=== PATIENT | female | born 1945 | race Caucasian/White ===

== ENCOUNTER 2016-09-18 01:10 | Inpatient (IN) | payer MEDICARE, BC ==
[2016-09-18] MEDS ORDERED: NORMAL SALINE 1000 ML 500 ML IV ONE (03:24)
[2016-09-18] MEDS ORDERED: INSULIN REG, HUMAN 100 UNIT/ML 3 ML VIAL (PYX) SUBCUT ONE ×2 (03:35→05:52)
--- NOTE | 2016-09-18 03:39 | ER Document Report ---
[id number] 30 DAYS: No <ELI WONG - Last Filed: 09/18/16 23:54> - General Chief Complaint: High Blood Sugar Stated Complaint: NON COMPLIAN WITH MEDS Notes: Patient is 70-year-old female presents with complaint of high blood sugars. She says she sometimes gets to take her insulin. She is because at her blood sugars have gone up. She also has chronic diarrhea which has been ongoing for several months. She said this is unchanged. No blood in her stool. No abdominal pain. No fevers. Some nausea but no vomiting. No other complaints at this time. (ELI WONG) - Related Data Allergies/Adverse Reactions: Sulfa (Sulfonamide Antibiotics) Allergy (Severe, Verified 12/03/15 14:47) Home Medications: Current Home Medications Aspirin [Ecotrin 81 mg EC Tablet] 81 mg PO DAILY 09/18/16 [History] Atorvastatin Calcium [Lipitor 40 mg Tablet] 40 mg PO QHS 09/18/16 [History] Bupropion HCl [Wellbutrin Xl 300mg 24hr Tablet] 300 mg PO QAM 09/18/16 [History] Clopidogrel Bisulfate [Plavix 75 mg Tablet] 75 mg PO DAILY 09/18/16 [History] Hydrochlorothiazide [Hydrodiuril 12.5 mg Capsule] 12.5 mg PO DAILY 09/18/16 [ History] Insulin NPH Human Isophane [Humulin N] 90 units SQ Q12 09/18/16 [History] Insulin Regular, Human [Humulin R (Reg) Insulin 100 unit/mL] 0 units SQ .PERSLIDINGSCALE 09/18/16 [History] Insulin Regular, Human [Humulin R (Reg) Insulin 100 unit/mL] 20 units SQ TID [History] Isosorbide Mononitrate [Imdur 30 mg Tablet.er] 30 mg PO Q12 09/18/16 [History] Levothyroxine Sodium [Synthroid] 200 mcg PO DAILY 09/18/16 [History] Lipase/Protease/Amylase [Zenpep Dr 3,000 Units Capsule] 1 each PO TID 09/18/16 [ History] Metoprolol Tartrate [Lopressor 50 mg Tablet] 50 mg PO DAILY 09/18/16 [History] Nitroglycerin [Nitrostat 0.4 mg (1/150 Gr) Tabs 25/Bottle] 0.4 mg SL Q5MP PRN [History] Ranitidine HCl [Zantac] 300 mg PO QHS 09/18/16 [History] Ranolazine [Ranexa 500 mg Tab.sr] 500 mg PO Q12 09/18/16 [History] Valsartan [Diovan 160 mg Tablet] 160 mg PO DAILY 09/18/16 [History] Past Medical History - Social History Smoking Status: Never Smoker Chew tobacco use (# tins/day): No Frequency of alcohol use: None Drug Abuse: None Family History: None Patient has suicidal ideation: No Patient has homicidal ideation: No - Past Medical History Cardiac Medical History: Reports: Hx Congestive Heart Failure, Hx Heart Attack, Hx Hypercholesterolemia, Hx Hypertension Pulmonary Medical History: Denies: Hx Tuberculosis Endocrine Medical History: Reports: Hx Diabetes Mellitus Type 2 Renal/ Medical History: Denies: Hx Peritoneal Dialysis Psychiatric Medical History: Reports: Hx Depression Past Surgical History: Reports: Hx Abdominal Surgery - fistula in abdomen, Hx Appendectomy, Hx Cardiac Catheterization, Hx Cardiac Surgery - triple bypass, stent, Hx Cholecystectomy, Hx Hysterectomy, Hx Tonsillectomy - Immunizations Immunizations up to date: Yes Hx Diphtheria, Pertussis, Tetanus Vaccination: Yes Hx Pneumococcal Vaccination: 06/11/15 <ELI WONG - Last Filed: 09/18/16 23:54> Review of Systems <ROSA HERRING - Last Filed: 09/18/16 07:42> <ELI WONG - Last Filed: 09/18/16 23:54> - Review of Systems Notes: My Normal Review Basic REVIEW OF SYSTEMS: CONSTITUTIONAL : Denies fever, chills, or sweats. Denies recent illness. EENT: Denies eye, ear, throat, or mouth pain or symptoms. Denies nasal or sinus congestion. RESPIRATORY: Denies cough, cold, or chest congestion. Denies shortness of breath, difficulty breathing, or wheezing. GASTROINTESTINAL: Denies abdominal pain. Some diarrhea. Denies constipation. Last BM: MUSCULOSKELETAL: Denies neck or back pain or joint pain or swelling. SKIN: Denies rash or skin lesions. NEUROLOGICAL: Denies altered mental status or loss of consciousness. Denies headache. Denies weakness or paralysis or loss of use of either side. Denies problems with gait or speech. Denies sensory or motor loss.nxiety or stress or depression. ALL OTHER SYSTEMS REVIEWED AND NEGATIVE. (ELI WONG) Physical Exam <ROSA HERRING - Last Filed: 09/18/16 07:42> <ELI WONG - Last Filed: 09/18/16 23:54> - Vital signs Vitals: Temp Pulse Resp BP Pulse Ox 98.7 F 120 H 16 171/87 H 97 09/18/16 01:20 09/18/16 01:20 09/18/16 01:20 09/18/16 01:20 09/18/16 01:20 (ROSA HERRING) (ELI WONG) - Notes Notes: General Appearance: Well nourished, alert, cooperative, no acute distress, no obvious discomfort. Well-appearing. Vitals: reviewed, See vital signs table. Head: no swelling or tenderness to the head Eyes: PERRL, EOMI, Conjuctiva clear Mouth: No decreasd moisture Neck: Supple, no neck tenderness, No thyromegaly Lungs: No wheezing, No rales, No rhonci, No accessory muscle use, good air exchange bilaterally. Heart: Normal rate, Regular rythm, No murmur, no rub Abdomen: Normal BS, soft, No rigidity, No abdominal tenderness, No guarding, no rebound, no abdominal masses, no organomegaly Extremities: strength 5/5 in all extremities, good pulses in all extremities, no swelling or tenderness in the extremities, no edema. Skin: warm, dry, appropriate color, no rash Neuro: speech clear, oriented x 3, normal affect, responds appropriately to questions. (ELI WONG) Course - Laboratory Result Diagrams: 09/18/16 03:34 09/18/16 03:34 <RSOA HERRING - Last Filed: 09/18/16 07:42> - Laboratory Result Diagrams: 09/18/16 03:34 09/18/16 03:34 <ELI WONG - Last Filed: 09/18/16 23:54> - Vital Signs Vital signs: Temp Pulse Resp BP Pulse Ox 97.5 F 83 18 155/93 H 98 09/18/16 18:00 09/18/16 19:00 09/18/16 18:00 09/18/16 18:00 09/18/16 18:00 (ROSA HERRING) (ELI WONG) - Laboratory Laboratory results interpreted by me: 09/18/16 09/18/16 09/18/16 02:05 03:34 03:34 WBC 22.2 H RDW 14.2 H Seg Neuts % (Manual) 81 H Lymphocytes % (Manual) 9 L Abs Neuts (Manual) 18.6 H Abs Monocytes (Manual) 1.6 H Sodium 133.7 L Glucose 347 H POC Glucose 366 H Hemoglobin A1c % Urine Glucose (UA) Urine Blood Urine Nitrite Ur Leukocyte Esterase 09/18/16 09/18/16 09/18/16 03:34 05:22 06:22 WBC RDW Seg Neuts % (Manual) Lymphocytes % (Manual) Abs Neuts (Manual) Abs Monocytes (Manual) Sodium Glucose POC Glucose 286 H Hemoglobin A1c % 10.6 H Urine Glucose (UA) >=500 H Urine Blood MODERATE H Urine Nitrite POSITIVE H Ur Leukocyte Esterase SMALL H (ROSA HERRING) (LEI WONG) - Transfer of Care Notes: 09/18/16 07:03 Patient is a leukocytosis 20,000. She has diarrhea but this is chronic for her. She has been having abnormal blood sugars. She initially thought this may be related to possibly missing insulin injection. I think could be related to infection. She does have positive nitrites and urine suggesting UTI. Clinically she looks okay. Due to her age and high leukocytosis think it is appropriate to admit her for observation. We will speak with her primary care doctor to see if this is appropriate. Dictation of this chart was performed using voice recognition software; therefore, there may be some unintended grammatical errors. (ELI WONG) Discharge - Discharge Admitting Provider: Hospitalist Unit Admitted: Telemetry <ROSA HERRING - Last Filed: 09/18/16 07:42> <ELI WONG - Last Filed: 09/18/16 23:54> - Discharge Clinical Impression: Diabetes mellitus type 2 in obese UTI (urinary tract infection) Qualifiers: Urinary tract infection type: acute cystitis Hematuria presence: with hematuria Qualified Code(s): N30.01 - Acute cystitis with hematuria Condition: Stable Disposition: ADMITTED INPATIENT
[2016-09-18 04:11] LABS: ANION GAP 10 (5-19); BLOOD UREA NITROGEN 11 mg/dL (7-20); CALCIUM 9.8 mg/dL (8.4-10.2); CARBON DIOXIDE 26 mmol/L (22-30); CHLORIDE 98 mmol/L (98-107); CREATININE RESULT 0.86 mg/dL (0.52-1.25); GLUCOSE 347 mg/dL (75-110); MAGNESIUM 1.6 mg/dL (1.6-2.3); POTASSIUM 3.9 mmol/L (3.6-5.0); SODIUM 133.7 mmol/L (137-145)
[2016-09-18 04:19] LABS: HEMATOCRIT 40.2 % (36.0-47.0); HEMOGLOBIN 13.4 g/dL (12.0-15.5); MEAN CORPUSCULAR HEMOGLOBIN 29.7 pg (27.0-33.4); MEAN CORPUSCULAR HGB CONC 33.3 g/dL (32.0-36.0); MEAN CORPUSCULAR VOLUME 89 fl (80-97); RED CELL DISTRIBUTION WIDTH 14.2 % (11.5-14.0); WHITE BLOOD COUNT 22.2 10^3/uL (4.0-10.5)
[2016-09-18 04:34] LABS: BAND NEUTROPHILS % (MANUAL) 3 % (3-5); BASOPHILS % (MANUAL) 0 % (0-2); EOSINOPHILS % (MANUAL) 0 % (0-6); LYMPHOCYTES % (MANUAL) 9 % (13-45); TOTAL CELLS COUNTED 100
[2016-09-18 04:36] LABS: ANISOCYTOSIS SLIGHT; TOXIC GRANULATION SLIGHT; TOXIC VACUOLATION PRESENT
[2016-09-18 06:38] LABS: APPEARANCE,URINE SLIGHTLY-CLOUDY; BILIRUBIN,URINE NEGATIVE (NEGATIVE); GLUCOSE, URINE >=500 mg/dL (NEGATIVE); KETONES,URINE NEGATIVE (NEGATIVE); LEUKOCYTE ESTERASE,URINE SMALL (NEGATIVE); NITRITE,URINE POSITIVE (NEGATIVE); PROTEIN,URINE NEGATIVE (NEGATIVE); URINE SPECIFIC GRAVITY 1.016; UROBILINOGEN,URINE NEGATIVE mg/dL (<2.0)
[2016-09-18] MEDS ORDERED: CEFTRIAXONE INJ 1000 MG VIAL IV ONE (06:53)
[2016-09-18] MEDS ORDERED: NORMAL SALINE 1000 ML 1,000 ML IV PRN (07:44)
[2016-09-18] MEDS ORDERED: DEXTROSE 40% GEL 15 GM TUBE PO PRN ×2 (07:47)
[2016-09-18] MEDS ORDERED: DEXTROSE 50%-WATER 25 GM/50 ML DISP.SYRIN IV PRN ×2 (07:47)
[2016-09-18] MEDS ORDERED: GLUCAGON,HUMAN RECOMB 1 MG INJ IM PRN (07:47)
[2016-09-18] MEDS ORDERED: LACTOBACILLUS ACIDOPHILUS 250 MG TAB PO ONE (10:30)
[2016-09-18] MEDS ORDERED: NITROGLYCERIN 0.4 MG/TAB 25 TAB/BOTTLE SL PRN (14:15)
--- NOTE | 2016-09-18 14:56 | PDOC H&P ---
History of Present Illness Admission Date/PCP: 09/18/16 07:45 Formerly: LENA MORENO, Patient complains of: High Blood Sugar History of Present Illness: KEVIN INFANTE is a 70 year old female with a past medical history of recurrent urinary tract infections and poorly controlled diabetes mellitus type 2 that presented to the emergency department with complaint of high blood sugars. The patient stated she sometimes gets to take her insulin and is here because at her blood sugars have gone up. The patient also has chronic diarrhea which has been ongoing for several months that has been worked up on an outpatient basis but apparently has not seen GI. No blood in her stool. No abdominal pain. No fevers. Some nausea but no vomiting. The patient had urinalysis findings are consistent with urinary tract infection. Patient was given a dose of ceftriaxone while in the emergency department as well as IV insulin was referred to the hospitalist for admission and management. Upon assessment the patient she was lying on stretcher watching television. The patient was excited about breakfast admitted to an appetite. The patient stated that she did not want cereal. The patient engage the junior underwriter without issue. I introduced myself and my role and the patient had no questions with this. The patient was then seen by the patient navigator and the patient did not have any concerns. However later once the patient was admitted to the telemetry floor, the patient's daughter adamantly refused my services. 09/18/16 09/18/16 03:34 06:22 WBC 22.2 H Ur Leukocyte Esterase SMALL H Urine WBC (Auto) 19 09/18/16 06:22 Urine Culture - Pending Clean Catch Midstream 09/18/16 02:05 POC Glucose 366 H MEDICATIONS: The medications listed in this document may have been auto- populated from previous contact and may not been verified or reconciled. This may not be an accurate reflection of the patient's home medication(s); however, authors are unable to edit or delete the medications listed in this document as "home medications". Past Medical History Cardiac Medical History: Reports: Atrial Fibrillation, Congestive Heart Failure , Coronary Artery Disease, Myocardial Infarction, Hyperlipidema, Hypertension Pulmonary Medical History: Reports: Sleep Apnea Endocrine Medical History: Reports: Diabetes Mellitus Type 2, Obesity - Morbid obesity Psychiatric Medical History: Reports: Depression Past Surgical History Past Surgical History: Bilateral cataract surgery Past Surgical History: Reports: Appendectomy, Cardiac Catheterization - Status post stenting, Cholecystectomy, Coronary Artery Bypass Graft - Triple-vessel, Hysterectomy, Tonsillectomy, Other - Abdominal wall vesicular fistula repair Social History Information Source: Patient Occupation: Retired. Lives alone. . Has children. Lives with: Alone Smoking Status: Never Smoker Frequency of Alcohol Use: None Hx Recreational Drug Use: No Drugs: None Hx Prescription Drug Abuse: No - Advance Directive Resuscitation Status: Full Code Surrogate healthcare decision maker:: Her daughters Family History Family History: None, DM, Hypertension, Malignancy - Mother of leukemia with diabetes and hypertension., Other - Father from Parkinson 's disease with hypertension and depression Parental Family History Reviewed: Yes Children Family History Reviewed: Yes Sibling(s) Family History Reviewed.: Yes - Sister with breast cancer Medication/Allergy Home Medications: Aspirin [Ecotrin 81 mg EC Tablet] 81 mg PO DAILY 09/18/16 Atorvastatin Calcium [Lipitor 40 mg Tablet] 40 mg PO QHS 09/18/16 Bupropion HCl [Wellbutrin Xl 300mg 24hr Tablet] 300 mg PO QAM 09/18/16 Clopidogrel Bisulfate [Plavix 75 mg Tablet] 75 mg PO DAILY 09/18/16 Hydrochlorothiazide [Hydrodiuril 12.5 mg Capsule] 12.5 mg PO DAILY 09/18/16 Insulin NPH Human Isophane [Humulin N] 90 units SQ Q12 09/18/16 Insulin Regular, Human [Humulin R (Reg) Insulin 100 unit/mL] 0 units SQ .PERSLIDINGSCALE 09/18/16 Insulin Regular, Human [Humulin R (Reg) Insulin 100 unit/mL] 20 units SQ TID Isosorbide Mononitrate [Imdur 30 mg Tablet.er] 30 mg PO Q12 09/18/16 Levothyroxine Sodium [Synthroid] 200 mcg PO DAILY 09/18/16 Lipase/Protease/Amylase [Zenpep Dr 3,000 Units Capsule] 1 each PO TID 09/18/16 Metoprolol Tartrate [Lopressor 50 mg Tablet] 50 mg PO DAILY 09/18/16 Nitroglycerin [Nitrostat 0.4 mg (1/150 Gr) Tabs 25/Bottle] 0.4 mg SL Q5MP PRN Ranitidine HCl [Zantac] 300 mg PO QHS 09/18/16 Ranolazine [Ranexa 500 mg Tab.sr] 500 mg PO Q12 09/18/16 Valsartan [Diovan 160 mg Tablet] 160 mg PO DAILY 09/18/16 Allergies/Adverse Reactions: Sulfa (Sulfonamide Antibiotics) Allergy (Severe, Verified 12/03/15 14:47) Review of Systems Constitutional: PRESENT: chills, fatigue, weakness. ABSENT: fever(s), headache( s), weight gain, weight loss Eyes: ABSENT: visual disturbances Ears: ABSENT: hearing changes Cardiovascular: PRESENT: chest pain, dyspnea on exertion. ABSENT: edema, orthropnea, palpitations Respiratory: ABSENT: cough, hemoptysis Gastrointestinal: PRESENT: diarrhea - 1 year, nausea. ABSENT: abdominal pain, constipation, hematemesis, hematochezia, vomiting Genitourinary: ABSENT: dysuria, hematuria, nocturia Musculoskeletal: ABSENT: joint swelling Integumentary: ABSENT: rash, wounds Neurological: ABSENT: abnormal gait, abnormal speech, confusion, dizziness, focal weakness, syncope Psychiatric: ABSENT: anxiety, depression, homidical ideation, suicidal ideation Endocrine: ABSENT: cold intolerance, heat intolerance, polydipsia, polyuria Hematologic/Lymphatic: PRESENT: easy bleeding, easy bruising Physical Exam Vital Signs: Temp Pulse Resp BP Pulse Ox 97.6 F 78 20 158/78 H 98 09/18/16 10:48 09/18/16 10:48 09/18/16 10:48 09/18/16 10:48 09/18/16 10:48 Intake & Output 09/16/16 09/17/16 09/18/16 23:59 23:59 23:59 Weight 101.2 kg General appearance: PRESENT: no acute distress, cooperative, well-developed, well-nourished Head exam: PRESENT: atraumatic, normocephalic Eye exam: PRESENT: conjunctiva pink, EOMI, PERRLA. ABSENT: scleral icterus Ear exam: PRESENT: normal external ear exam Mouth exam: PRESENT: moist, tongue midline Neck exam: ABSENT: carotid bruit, JVD, lymphadenopathy, thyromegaly Respiratory exam: PRESENT: clear to auscultation chadd, symmetrical, unlabored. ABSENT: rales, rhonchi, tachypnea, wheezes Cardiovascular exam: PRESENT: RRR. ABSENT: diastolic murmur, rubs, systolic murmur Pulses: PRESENT: normal dorsalis pedis pul Vascular exam: PRESENT: normal capillary refill GI/Abdominal exam: PRESENT: normal bowel sounds, soft. ABSENT: distended, guarding, mass, organolmegaly, rebound, tenderness Rectal exam: PRESENT: deferred Extremities exam: PRESENT: full ROM. ABSENT: calf tenderness, clubbing, pedal edema Neurological exam: PRESENT: alert, awake, oriented to person, oriented to place , oriented to time, oriented to situation, CN II-XII grossly intact. ABSENT: motor sensory deficit Psychiatric exam: PRESENT: appropriate affect, normal mood. ABSENT: homicidal ideation, suicidal ideation Skin exam: PRESENT: dry, intact, warm. ABSENT: cyanosis, rash Results Laboratory Results: Labs- Last Values WBC 22.2 10^3/uL (4.0-10.5) H 09/18/16 03:34 RBC 4.50 10^6/uL (3.72-5.28) 09/18/16 03:34 Hgb 13.4 g/dL (12.0-15.5) 09/18/16 03:34 Hct 40.2 % (36.0-47.0) 09/18/16 03:34 MCV 89 fl (80-97) 09/18/16 03:34 MCH 29.7 pg (27.0-33.4) 09/18/16 03:34 MCHC 33.3 g/dL (32.0-36.0) 09/18/16 03:34 RDW 14.2 % (11.5-14.0) H 09/18/16 03:34 Plt Count 375 10^3/uL (150-450) 09/18/16 03:34 Total Counted 100 09/18/16 03:34 Seg Neutrophils % Not Reportable 09/18/16 03:34 Seg Neuts % (Manual) 81 % (42-78) H 09/18/16 03:34 Band Neutrophils % 3 % (3-5) 09/18/16 03:34 Lymphocytes % Not Reportable 09/18/16 03:34 Lymphocytes % (Manual) 9 % (13-45) L 09/18/16 03:34 Monocytes % Not Reportable 09/18/16 03:34 Monocytes % (Manual) 7 % (3-13) 09/18/16 03:34 Eosinophils % Not Reportable 09/18/16 03:34 Eosinophils % (Manual) 0 % (0-6) 09/18/16 03:34 Basophils % Not Reportable 09/18/16 03:34 Basophils % (Manual) 0 % (0-2) 09/18/16 03:34 Absolute Neutrophils Not Reportable 09/18/16 03:34 Abs Neuts (Manual) 18.6 10^3/uL (1.7-8.2) H 09/18/16 03:34 Absolute Lymphocytes Not Reportable 09/18/16 03:34 Abs Lymphs (Manual) 2.0 10^3/uL (0.5-4.7) 09/18/16 03:34 Absolute Monocytes Not Reportable 09/18/16 03:34 Abs Monocytes (Manual) 1.6 10^3/uL (0.1-1.4) H 09/18/16 03:34 Absolute Eosinophils Not Reportable 09/18/16 03:34 Absolute Eos (Manual) 0.0 10^3/uL (0.0-0.6) 09/18/16 03:34 Absolute Basophils Not Reportable 09/18/16 03:34 Abs Basophils (Manual) 0.0 10^3/uL (0.0-0.2) 09/18/16 03:34 Toxic Granulation SLIGHT 09/18/16 03:34 Toxic Vacuolation PRESENT 09/18/16 03:34 Platelet Comment ADEQUATE 09/18/16 03:34 Anisocytosis SLIGHT 09/18/16 03:34 Sodium 133.7 mmol/L (137-145) L 09/18/16 03:34 Potassium 3.9 mmol/L (3.6-5.0) 09/18/16 03:34 Chloride 98 mmol/L (98-107) 09/18/16 03:34 Carbon Dioxide 26 mmol/L (22-30) 09/18/16 03:34 Anion Gap 10 (5-19) 09/18/16 03:34 BUN 11 mg/dL (7-20) 09/18/16 03:34 Creatinine 0.86 mg/dL (0.52-1.25) 09/18/16 03:34 Est GFR ( Amer) > 60 (>60) 09/18/16 03:34 Est GFR (Non-Af Amer) > 60 (>60) 09/18/16 03:34 Glucose 347 mg/dL (75-110) H 09/18/16 03:34 POC Glucose 148 mg/dL (70-110) H 09/18/16 11:49 Calcium 9.8 mg/dL (8.4-10.2) 09/18/16 03:34 Magnesium 1.6 mg/dL (1.6-2.3) 09/18/16 03:34 Troponin I 0.023 ng/mL 09/18/16 08:37 Urine Color YELLOW 09/18/16 06:22 Urine Appearance SLIGHTLY-CLOUDY 09/18/16 06:22 Urine pH 6.0 (5.0-9.0) 09/18/16 06:22 Ur Specific [place] 1.016 09/18/16 06:22 Urine Protein NEGATIVE mg/dL (NEGATIVE) 09/18/16 06:22 Urine Glucose (UA) >=500 mg/dL (NEGATIVE) H 09/18/16 06:22 Urine Ketones NEGATIVE mg/dL (NEGATIVE) 09/18/16 06:22 Urine Blood MODERATE (NEGATIVE) H 09/18/16 06:22 Urine Nitrite POSITIVE (NEGATIVE) H 09/18/16 06:22 Urine Bilirubin NEGATIVE (NEGATIVE) 09/18/16 06:22 Urine Urobilinogen NEGATIVE mg/dL (<2.0) 09/18/16 06:22 Ur Leukocyte Esterase SMALL (NEGATIVE) H 09/18/16 06:22 Urine WBC (Auto) 19 /HPF 09/18/16 06:22 Urine RBC (Auto) 14 /HPF 09/18/16 06:22 Urine Bacteria (Auto) 3+ /HPF 09/18/16 06:22 Squamous Epi Cells Auto 7 /HPF 09/18/16 06:22 Urine Mucus (Auto) RARE /LPF 09/18/16 06:22 Urine Ascorbic Acid NEGATIVE (NEGATIVE) 09/18/16 06:22 Impressions: Chest X-Ray 09/18/16 05:06 IMPRESSION: HEART ENLARGED WITHOUT FAILURE. NO OTHER SIGNIFICANT RADIOGRAPHIC FINDING IN THE CHEST. Assessment & Plan - Diagnosis (1) UTI (urinary tract infection) Qualifiers: Urinary tract infection type: acute cystitis Hematuria presence: with hematuria Qualified Code(s): N30.01 - Acute cystitis with hematuria Is this a current diagnosis for this admission?: YesPlan: Will send urine for culture. Appears that the patient's past UTIs have consistent Klebsiella as well as Escherichia coli both of which were sensitive to ceftriaxone. Will continue ceftriaxone and follow. (2) SIRS (systemic inflammatory response syndrome) Is this a current diagnosis for this admission?: YesPlan: Secondary to #1. Selected Entries 09/18/16 01:20 Pulse Rate [ 120 H Right Finger] 09/18/16 03:34 WBC 22.2 H (3) Coronary artery disease Qualifiers: Coronary Disease-Associated Artery/Lesion type: [place] artery [place] vs. transplanted heart: [place] heart Associated angina: without angina Qualified Code(s): I25.10 - Atherosclerotic heart disease of [place] coronary artery without angina pectoris Is this a current diagnosis for this admission?: YesPlan: The patient admits to ever increasing dyspnea although she is not dyspneic at rest. The patient has no echo on record therefore will obtain echocardiogram. Will continue the patient's home medications the patient denies any chest pain at this time. (4) Obstructive sleep apnea Is this a current diagnosis for this admission?: YesPlan: Continue C Pap at night at home settings. (5) Diabetes mellitus type 2 in obese Is this a current diagnosis for this admission?: YesPlan: The patient's blood sugars appear to be under poor control. In review of the patient's previous admissions this is been a consistent trend. A1c's are consistently over 10. Resume the patient's home basal doses as well as her home sliding scale coverage and monitor how the patient's blood sugars do in this environment versus her home environment on this treatment regimen. Will add additional sliding-scale NovoLog before meals and at bedtime. (6) Chronic diarrhea Is this a current diagnosis for this admission?: YesPlan: Will add probiotic. Will send stool for culture. It appears the patient has had this ongoing for about a year. (7) Hypothyroidism Qualifiers: Hypothyroidism type: unspecified Qualified Code(s): E03.9 - Hypothyroidism, unspecified Is this a current diagnosis for this admission?: YesPlan: Will continue levothyroxine obtain TSH given the patient's diarrhea. (8) DVT prophylaxis Is this a current diagnosis for this admission?: YesPlan: *Subcutaneous heparin. - Time Time Spent: 50 to 70 Minutes Medications reviewed and adjusted accordingly: Yes Anticipated discharge: Home Within: within 24 hours Disposition: The patient is a full code. Pending patient's symptomatology and diagnostic findings will reevaluate in the a.m. - Inpatient Certification Based on my medical assessment, after consideration of the patient's comorbidities, presenting symptoms, or acuity I expect that the services needed warrant INPATIENT care.: Yes I certify that my determination is in accordance with my understanding of Medicare's requirements for reasonable and necessary INPATIENT services [42 CFR 412.3e].: Yes Medical Necessity: Need For IV Fluids, Need For Continuous Telemetry Monitoring , Need for IV Antibiotics Post Hospital Care: D/C or Transfer Summary
[2016-09-18] MEDS ORDERED: METOPROLOL SUCCINATE 50 MG TAB.SR.24H PO ONE (15:30)
[2016-09-18] MEDS ORDERED: CLOPIDOGREL BISULFATE 75 MG TABLET PO ONE (16:00)
[2016-09-18] MEDS ORDERED: ASPIRIN 81 MG TABLET, ENT COATED PO ONE (16:00)
[2016-09-18] MEDS: INSULIN REG, HUMAN 100 UNIT/ML 3 ML VIAL (PYX) SUBCUT SCH (16:25)
--- NOTE | 2016-09-18 16:55 | EKG REPORT ---
SEVERITY:- ABNORMAL ECG - SINUS RHYTHM LEFT VENTRICULAR HYPERTROPHY : Confirmed by: Kayli Swann MD 18-Sep-2016 16:54:09
[2016-09-18] MEDS: INSULIN REG, HUMAN 100 UNIT/ML 3 ML VIAL (PYX) SUBCUT PRN (17:01)
[2016-09-18] MEDS: LACTOBACILLUS ACIDOPHILUS 250 MG TAB PO SCH (17:01)
[2016-09-18] MEDS ORDERED: AMYLASE PO SCH (18:00)
[2016-09-18] MEDS ORDERED: PROTEASE PO SCH (18:00)
[2016-09-18] MEDS ORDERED: LIPASE PO SCH (18:00)
[2016-09-18] MEDS ORDERED: (PENDING PHARMACY ID) (Ranitidine Hcl [Zantac] 300 MG) PO SCH (22:00)
[2016-09-18] MEDS: RANOLAZINE 500 MG TAB.SR.12H PO SCH (23:01)
[2016-09-18] MEDS: ISOSORBIDE MONONITRATE 30 MG TAB.ER.24H PO SCH (23:01)
[2016-09-18] MEDS: FAMOTIDINE 20 MG TABLET PO SCH (23:02)
[2016-09-18] MEDS: ATORVASTATIN CALCIUM 40 MG TABLET PO SCH (23:02)
[2016-09-18] MEDS: INSULIN NPH (ISOPHANE), HUMAN 100 UNIT/ML 3 ML SUBCUT SCH (23:11)
[2016-09-18] MEDS: HEPARIN SOD (PORCINE) 5,000 UNIT/ML 1 ML SYRINGE SUBCUT SCH (23:12)
[2016-09-19 05:13] LABS: HEMATOCRIT 33.7 % (36.0-47.0); HEMOGLOBIN 11.7 g/dL (12.0-15.5); HGB HCT DIFFERENCE 1.4; MEAN CORPUSCULAR HEMOGLOBIN 30.9 pg (27.0-33.4); MEAN CORPUSCULAR HGB CONC 34.8 g/dL (32.0-36.0); MEAN CORPUSCULAR VOLUME 89 fl (80-97); RED BLOOD COUNT 3.79 10^6/uL (3.72-5.28); WHITE BLOOD COUNT 10.3 10^3/uL (4.0-10.5)
[2016-09-19] MEDS: NORMAL SALINE 1000 ML 1,000 ML IV PRN (05:15)
[2016-09-19] MEDS: CEFTRIAXONE 1 GM/D5W RTU 1 GM/50 ML RTUPB IV SCH (05:15)
[2016-09-19] MEDS: HEPARIN SOD (PORCINE) 5,000 UNIT/ML 1 ML SYRINGE SUBCUT SCH ×3 (05:15→23:39)
[2016-09-19 05:30] LABS: ANION GAP 8 (5-19); BLOOD UREA NITROGEN 13 mg/dL (7-20); CALCIUM 9.7 mg/dL (8.4-10.2); CARBON DIOXIDE 26 mmol/L (22-30); CHLORIDE 103 mmol/L (98-107); GLUCOSE 247 mg/dL (75-110); MAGNESIUM 1.7 mg/dL (1.6-2.3); POTASSIUM 3.8 mmol/L (3.6-5.0); SODIUM 136.5 mmol/L (137-145)
[2016-09-19] MEDS: INSULIN REG, HUMAN 100 UNIT/ML 3 ML VIAL (PYX) SUBCUT SCH ×3 (08:20→18:41)
[2016-09-19] MEDS: INSULIN REG, HUMAN 100 UNIT/ML 3 ML VIAL (PYX) SUBCUT PRN ×3 (08:21→18:41)
[2016-09-19] MEDS: CLOPIDOGREL BISULFATE 75 MG TABLET PO SCH (11:18)
[2016-09-19] MEDS: FAMOTIDINE 20 MG TABLET PO SCH ×2 (11:19→23:38)
[2016-09-19] MEDS: INSULIN NPH (ISOPHANE), HUMAN 100 UNIT/ML 3 ML SUBCUT SCH ×2 (11:19→23:39)
[2016-09-19] MEDS: ASPIRIN 81 MG TABLET, ENT COATED PO SCH (11:19)
[2016-09-19] MEDS: RANOLAZINE 500 MG TAB.SR.12H PO SCH ×2 (11:19→23:38)
[2016-09-19] MEDS: LACTOBACILLUS ACIDOPHILUS 250 MG TAB PO SCH ×2 (11:27→18:41)
[2016-09-19] MEDS: METOPROLOL SUCCINATE 50 MG TAB.SR.24H PO SCH (11:28)
[2016-09-19] MEDS: ISOSORBIDE MONONITRATE 30 MG TAB.ER.24H PO SCH ×2 (11:28→23:38)
[2016-09-19] MEDS: VALSARTAN 160 MG TABLET PO SCH (11:29)
[2016-09-19] MEDS: LEVOTHYROXINE SODIUM 0.1 MG TABLET PO SCH (11:30)
[2016-09-19] MEDS: BUPROPION HCL 75 MG TABLET PO SCH ×2 (11:36→23:38)
--- NOTE | 2016-09-19 13:48 | PDOC PROGRESS REPORT ---
Subjective Progress Note for:: 09/19/16 Subjective:: Reason for visit: Follow-up urinary tract infection, weakness, diarrhea Hospital course: Per H&P "KEVIN INFANTE is a 70 year old female with a past medical history of recurrent urinary tract infections and poorly controlled diabetes mellitus type 2 that presented to the emergency department with complaint of high blood sugars. The patient stated she sometimes gets to take her insulin and is here because at her blood sugars have gone up. The patient also has chronic diarrhea which has been ongoing for several months that has been worked up on an outpatient basis but apparently has not seen GI. No blood in her stool. No abdominal pain. No fevers. Some nausea but no vomiting. The patient had urinalysis findings are consistent with urinary tract infection. Patient was given a dose of ceftriaxone while in the emergency department as well as IV insulin was referred to the hospitalist for admission and management. Upon assessment the patient she was lying on stretcher watching television. The patient was excited about breakfast admitted to an appetite. The patient stated that she did not want cereal. The patient engage the sign writer hand without issue. I introduced myself and my role and the patient had no questions with this. The patient was then seen by the patient navigator and the patient did not have any concerns. However later once the patient was admitted to the telemetry floor, the patient's daughter adamantly refused my (Ms. Strickland's) services. " I inherited her care this morning and found her lying in the bed reading the newspaper or watching television clearly in no acute distress, no family was available in the room at the time. The patient reports resolution of her diarrhea stating she has had a single bowel movement in the last 24 hours that was formed elements. She denies any abdominal pain. Overall she states she feels significantly improved meaning she feels less weak. Subjective: She denies chest pain, palpitations, nausea, vomiting, diarrhea (as noted above), fevers or chills. ROS: per HPI plus a total of 10 systems reviewed, pertinent positives and negatives noted above, remaining systems negative. Physical Exam Vital Signs: Temp Pulse Resp BP Pulse Ox 97.7 F 65 14 116/54 L 99 09/19/16 12:27 09/19/16 12:27 09/19/16 12:27 09/19/16 12:09/19/16 12:27 Intake & Output 09/18/16 09/19/16 09/20/16 06:59 06:59 06:59 Intake Total 931 Output Total 1650 Balance -719 Weight 101.2 kg PHYSICAL EXAM GENERAL: NAD; well developed, well nourished; moderately obese; alert and oriented to person, place, time, situation HEENT: normocephalic; EOMI, PERRLA, no conjunctival injection, no scleral icterus; oral mucosa moist, RESPIRATORY: no accessory muscle use, no increased WOB, good air entry bilaterally; no wheezes, rales, rhonchi; no inspiratory crackles CARDIO: no JVD; RRR; no systolic murmur; no tachycardia VASCULAR: no abdominal bruit; no pallor; 2+ radial, DP pulse; normal capillary refill GI: soft; nondistended, large, misshapen due to surgical scar; moderate to severe diastases recti; normal bowel sounds; no rebound, rigidity, guarding; nontender NEURO: normal sensation; no dysarthria; no nystagmus; tongue protrudes midline; MSK: 4/5 strength; normal ROM hips; transitions without assistance but utilizes power chair for ambulation EXTREMITIES: no calf tender; no palpable cords in calf; no clubbing, cyanosis , pedal edema PSYCH: normal affect, normal mood SKIN: warm; moist; no petechiae; no telengectasias; no jaundice; no rash Results Laboratory Results: 09/19/16 04:59 09/19/16 04:59 09/19/16 09/19/16 04:59 04:59 WBC 10.3 RBC 3.79 Hgb 11.7 L Hct 33.7 L MCV 89 MCH 30.9 MCHC 34.8 RDW 14.0 Plt Count 307 Sodium 136.5 L Potassium 3.8 Chloride 103 Carbon Dioxide 26 Anion Gap 8 BUN 13 Creatinine 0.80 Est GFR ( Amer) > 60 Est GFR (Non-Af Amer) > 60 Glucose 247 H Calcium 9.7 Magnesium 1.7 09/18/16 08:37 Troponin I 0.023 Labs reviewed with resolution of her leukocytosis Impressions: Chest X-Ray 09/18/16 05:06 IMPRESSION: HEART ENLARGED WITHOUT FAILURE. NO OTHER SIGNIFICANT RADIOGRAPHIC FINDING IN THE CHEST. Status: Image reviewed by me - Agree with radiology Assessment & Plan - Diagnosis (1) UTI (urinary tract infection) Qualifiers: Urinary tract infection type: acute cystitis Hematuria presence: with hematuria Qualified Code(s): N30.01 - Acute cystitis with hematuria Is this a current diagnosis for this admission?: YesPlan: Urine culture shows greater than 100,000 colony-forming units of gram-negative kami, identification and susceptibility still pending. Continue empiric Rocephin therapy as this seems to be improving her condition. (2) Sepsis Qualifiers: Sepsis type: sepsis due to unspecified organism Qualified Code(s): A41.9 - Sepsis, unspecified organism Is this a current diagnosis for this admission?: YesPlan: As evidenced by tachycardia, leukocytosis and a source. (3) Chronic diarrhea Is this a current diagnosis for this admission?: YesPlan: Seemingly resolved. According to the patient she's had one bowel movement since admission and it was formed elements. (4) Coronary artery disease Qualifiers: Coronary Disease-Associated Artery/Lesion type: [place] artery [place] vs. transplanted heart: [place] heart Associated angina: without angina Qualified Code(s): I25.10 - Atherosclerotic heart disease of [place] coronary artery without angina pectoris Is this a current diagnosis for this admission?: YesPlan: Continue usual home regimen. Initial troponin was negative for acute ischemia as was her admitting EKG. Furthermore she has no complaints of cardiac-type symptoms. (5) Hypothyroidism Qualifiers: Hypothyroidism type: unspecified Qualified Code(s): E03.9 - Hypothyroidism, unspecified Is this a current diagnosis for this admission?: YesPlan: Well-controlled on current regimen, TSH well within normal limits. (6) Obstructive sleep apnea Is this a current diagnosis for this admission?: YesPlan: Continue home CPAP as tolerated. (7) Diabetes mellitus type 2 in obese Is this a current diagnosis for this admission?: YesPlan: Continue current regimen - Time Time Spent with patient: 35 or more minutes Medications reviewed and adjusted accordingly: Yes Anticipated discharge: Home Within: within 48 hours - Plan Summary Plan Summary: Awaiting final culture results to better target our antibiotic therapy before transitioning home. The patient reports early signs and symptoms of a vaginal yeast infection and states she has this problem anytime she is exposed to systemic antibiotics and is requesting prophylactic Diflucan. Furthermore, at the insistence of her daughter, she is requesting a CT the abdomen and pelvis to further evaluate "my problems". I do not see clear indication for such testing at this time I believe the risk of radiation exposure outweighs the benefit. I discussed this with the patient at the bedside and she seemed to agree.
[2016-09-19] MEDS: ATORVASTATIN CALCIUM 40 MG TABLET PO SCH (23:38)
[2016-09-20] MEDS: NORMAL SALINE 1000 ML 1,000 ML IV PRN (00:04)
[2016-09-20] MEDS: CEFTRIAXONE 1 GM/D5W RTU 1 GM/50 ML RTUPB IV SCH (06:15)
[2016-09-20] MEDS: HEPARIN SOD (PORCINE) 5,000 UNIT/ML 1 ML SYRINGE SUBCUT SCH ×3 (06:15→23:10)
[2016-09-20] MEDS: INSULIN NPH (ISOPHANE), HUMAN 100 UNIT/ML 3 ML SUBCUT SCH ×2 (09:29→23:10)
[2016-09-20] MEDS: LACTOBACILLUS ACIDOPHILUS 250 MG TAB PO SCH ×2 (09:30→17:59)
[2016-09-20] MEDS: VALSARTAN 160 MG TABLET PO SCH (09:31)
[2016-09-20] MEDS: METOPROLOL SUCCINATE 50 MG TAB.SR.24H PO SCH (09:31)
[2016-09-20] MEDS: LEVOTHYROXINE SODIUM 0.1 MG TABLET PO SCH (09:32)
[2016-09-20] MEDS: FAMOTIDINE 20 MG TABLET PO SCH ×2 (09:32→23:11)
[2016-09-20] MEDS: ISOSORBIDE MONONITRATE 30 MG TAB.ER.24H PO SCH ×2 (09:32→23:12)
[2016-09-20] MEDS: CLOPIDOGREL BISULFATE 75 MG TABLET PO SCH (09:32)
[2016-09-20] MEDS: ASPIRIN 81 MG TABLET, ENT COATED PO SCH (09:32)
[2016-09-20] MEDS: RANOLAZINE 500 MG TAB.SR.12H PO SCH ×2 (09:43→23:11)
[2016-09-20] MEDS: BUPROPION HCL 75 MG TABLET PO SCH ×2 (09:43→23:11)
--- NOTE | 2016-09-20 11:15 | PDOC PROGRESS REPORT ---
Subjective Progress Note for:: 09/20/16 Subjective:: Reason for visit: Follow-up urinary tract infection, weakness, diarrhea Hospital course: Per H&P "KEVIN INFANTE is a 70 year old female with a past medical history of recurrent urinary tract infections and poorly controlled diabetes mellitus type 2 that presented to the emergency department with complaint of high blood sugars. The patient stated she sometimes gets to take her insulin and is here because at her blood sugars have gone up. The patient also has chronic diarrhea which has been ongoing for several months that has been worked up on an outpatient basis but apparently has not seen GI. No blood in her stool. No abdominal pain. No fevers. Some nausea but no vomiting. The patient had urinalysis findings are consistent with urinary tract infection. Patient was given a dose of ceftriaxone while in the emergency department as well as IV insulin was referred to the hospitalist for admission and management. Upon assessment the patient she was lying on stretcher watching television. The patient was excited about breakfast admitted to an appetite. The patient stated that she did not want cereal. The patient engage the customs entry writer without issue. I introduced myself and my role and the patient had no questions with this. The patient was then seen by the patient navigator and the patient did not have any concerns. However later once the patient was admitted to the telemetry floor, the patient's daughter adamantly refused my (Ms. Strickland's) services. " I inherited her care on 09/19/2016 and found her lying in the bed reading the newspaper or watching television clearly in no acute distress, no family was available in the room at the time. The patient reports resolution of her diarrhea stating she has had a single bowel movement in the last 24 hours that was formed elements. She denies any abdominal pain. Overall she states she feels significantly improved meaning she feels less weak. On 09/20/2016 she finally had a bowel movement and unfortunately the stool is screening positive for C. difficile, fortunately she does not have any lingering abdominal discomfort and no nausea or vomiting. Furthermore, her urine culture is showing an ampicillin resistant Klebsiella pneumoniae, which of course warrants antibiotic treatment. Subjective: She denies chest pain, palpitations, nausea, vomiting, diarrhea (as noted above), fevers or chills. ROS: per HPI plus a total of 10 systems reviewed, pertinent positives and negatives noted above, remaining systems negative. Physical Exam Vital Signs: Temp Pulse Resp BP Pulse Ox 97.5 F 69 16 141/54 H 97 09/20/16 07:52 09/20/16 07:52 09/20/16 07:52 09/20/16 07:52 09/20/16 07:52 Intake & Output 09/19/16 09/20/16 09/21/16 06:59 06:59 06:59 Intake Total 931 2310 Output Total 1650 850 Balance -719 1460 Weight 101.2 kg PHYSICAL EXAM GENERAL: NAD; well developed, well nourished; moderately obese; alert and oriented to person, place, time, situation HEENT: normocephalic; no conjunctival injection, no scleral icterus; oral mucosa moist, RESPIRATORY: no accessory muscle use, no increased WOB, good air entry bilaterally; no wheezes, rales, rhonchi; no inspiratory crackles CARDIO: no JVD; RRR; no systolic murmur; no tachycardia VASCULAR: no abdominal bruit; no pallor; 2+ radial, DP pulse; normal capillary refill GI: soft; nondistended, large, misshapen due to surgical scar; moderate to severe diastases recti; normal bowel sounds; no rebound, rigidity, guarding; nontender NEURO: normal sensation; no dysarthria; no nystagmus; tongue protrudes midline; MSK: 4/5 strength; normal ROM hips; transitions without assistance but utilizes power chair for ambulation EXTREMITIES: no calf tender; no palpable cords in calf; no clubbing, cyanosis , pedal edema PSYCH: normal affect, normal mood SKIN: warm; moist; no petechiae; no telengectasias; no jaundice; no rash Results Laboratory Results: 09/19/16 04:59 09/19/16 04:59 09/18/16 08:37 Troponin I 0.023 Assessment & Plan - Diagnosis (1) C. difficile diarrhea Is this a current diagnosis for this admission?: YesPlan: Likely accounts for the worsening of her chronic diarrhea. Unfortunately she requires antibiotics for treatment of the urinary tract infection. We'll add Flagyl and continue lactobacillus. (2) UTI (urinary tract infection) Qualifiers: Urinary tract infection type: acute cystitis Hematuria presence: with hematuria Qualified Code(s): N30.01 - Acute cystitis with hematuria Is this a current diagnosis for this admission?: YesPlan: Secondary to ampicillin resistant Klebsiella pneumonia, continue Rocephin. (3) Sepsis Qualifiers: Sepsis type: sepsis due to unspecified organism Qualified Code(s): A41.9 - Sepsis, unspecified organism Is this a current diagnosis for this admission?: YesPlan: Improved. Secondary to the above. As evidenced by tachycardia, leukocytosis and a source. (4) Chronic diarrhea Is this a current diagnosis for this admission?: Yes (5) Coronary artery disease Qualifiers: Coronary Disease-Associated Artery/Lesion type: [place] artery [place] vs. transplanted heart: [place] heart Associated angina: without angina Qualified Code(s): I25.10 - Atherosclerotic heart disease of [place] coronary artery without angina pectoris Is this a current diagnosis for this admission?: Yes (6) Hypothyroidism Qualifiers: Hypothyroidism type: unspecified Qualified Code(s): E03.9 - Hypothyroidism, unspecified Is this a current diagnosis for this admission?: Yes (7) Obstructive sleep apnea Is this a current diagnosis for this admission?: Yes (8) Diabetes mellitus type 2 in obese Is this a current diagnosis for this admission?: Yes - Time Time Spent with patient: 25-34 minutes
[2016-09-20] MEDS ORDERED: METRONIDAZOLE 500 MG TABLET PO ONE (11:30)
[2016-09-20] MEDS: INSULIN REG, HUMAN 100 UNIT/ML 3 ML VIAL (PYX) SUBCUT SCH ×2 (11:53→18:06)
[2016-09-20] MEDS: SENNOSIDES/DOCUSATE 8.6-50 MG 1 EACH TABLET PO SCH ×2 (12:10→18:06)
[2016-09-20] MEDS: FLUCONAZOLE 100 MG TABLET PO SCH (13:03)
[2016-09-20] MEDS: METRONIDAZOLE 500 MG TABLET PO SCH ×2 (15:22→23:11)
[2016-09-20] MEDS: ATORVASTATIN CALCIUM 40 MG TABLET PO SCH (23:11)
[2016-09-21] MEDS: HEPARIN SOD (PORCINE) 5,000 UNIT/ML 1 ML SYRINGE SUBCUT SCH ×3 (06:36→22:46)
[2016-09-21] MEDS: METRONIDAZOLE 500 MG TABLET PO SCH ×3 (06:36→22:46)
[2016-09-21 07:23] LABS: ABSOLUTE EOSINOPHILS # (AUTO) 0.4 10^3/uL (0.0-0.6); ABSOLUTE LYMPHOCYTES (AUTO) 1.1 10^3/uL (0.5-4.7); ABSOLUTE MONOCYTES (AUTO) 0.5 10^3/uL (0.1-1.4); ABSOLUTE NEUT (AUTO) 7.4 10^3/uL (1.7-8.2); BASOPHILS % (AUTO) 0.5 % (0-2); EOSINOPHILS % (AUTO) 4.7 % (0-6); HEMATOCRIT 33.1 % (36.0-47.0); HEMOGLOBIN 11.4 g/dL (12.0-15.5); HGB HCT DIFFERENCE 1.1; LYMPHOCYTES % (AUTO) 11.3 % (13-45); MEAN CORPUSCULAR HEMOGLOBIN 30.2 pg (27.0-33.4); MEAN CORPUSCULAR HGB CONC 34.6 g/dL (32.0-36.0); MEAN CORPUSCULAR VOLUME 87 fl (80-97); MONOCYTES % (AUTO) 5.8 % (3-13); RED BLOOD COUNT 3.79 10^6/uL (3.72-5.28); RED CELL DISTRIBUTION WIDTH 13.9 % (11.5-14.0); SEGMENTED NEUTROPHILS % (AUTO) 77.7 % (42-78); WHITE BLOOD COUNT 9.5 10^3/uL (4.0-10.5)
[2016-09-21] MEDS: CEFTRIAXONE 1 GM/D5W RTU 1 GM/50 ML RTUPB IV SCH (07:32)
[2016-09-21 07:37] LABS: ANION GAP 9 (5-19); BLOOD UREA NITROGEN 10 mg/dL (7-20); CALCIUM 9.4 mg/dL (8.4-10.2); CARBON DIOXIDE 26 mmol/L (22-30); CHLORIDE 102 mmol/L (98-107); CREATININE RESULT 0.94 mg/dL (0.52-1.25); GLUCOSE 89 mg/dL (75-110); MAGNESIUM 1.7 mg/dL (1.6-2.3); PHOSPHORUS 4.6 mg/dL (2.5-4.5); POTASSIUM 3.8 mmol/L (3.6-5.0); SODIUM 136.5 mmol/L (137-145)
[2016-09-21] MEDS: INSULIN REG, HUMAN 100 UNIT/ML 3 ML VIAL (PYX) SUBCUT SCH ×3 (08:56→18:14)
[2016-09-21] MEDS: INSULIN NPH (ISOPHANE), HUMAN 100 UNIT/ML 3 ML SUBCUT SCH ×2 (10:05→22:23)
[2016-09-21] MEDS: ASPIRIN 81 MG TABLET, ENT COATED PO SCH (10:11)
[2016-09-21] MEDS: BUPROPION HCL 75 MG TABLET PO SCH ×2 (10:12→22:46)
[2016-09-21] MEDS: FAMOTIDINE 20 MG TABLET PO SCH ×2 (10:13→22:46)
[2016-09-21] MEDS: RANOLAZINE 500 MG TAB.SR.12H PO SCH ×2 (10:13→22:46)
[2016-09-21] MEDS: VALSARTAN 160 MG TABLET PO SCH (10:14)
[2016-09-21] MEDS: METOPROLOL SUCCINATE 50 MG TAB.SR.24H PO SCH (10:15)
[2016-09-21] MEDS: CLOPIDOGREL BISULFATE 75 MG TABLET PO SCH (10:16)
[2016-09-21] MEDS: SENNOSIDES/DOCUSATE 8.6-50 MG 1 EACH TABLET PO SCH ×2 (10:17→18:18)
[2016-09-21] MEDS: LEVOTHYROXINE SODIUM 0.1 MG TABLET PO SCH (10:17)
[2016-09-21] MEDS: ISOSORBIDE MONONITRATE 30 MG TAB.ER.24H PO SCH ×2 (10:17→22:46)
--- NOTE | 2016-09-21 12:43 | XCELERA REPORT ---
[address] [address] Transthoracic Echocardiogram Report Name: KEVIN INFANTE Age: 70 yrs Gender: Female : 1945 Patient Status: Inpatient Patient Location: [id number] Study Date: 09/21/2016 09:04 AM Height: 61 in Weight: 223 lb BSA: 2.0 m2 Procedure: A complete two-dimensional transthoracic echocardiogram was performed (2D, M-mode, spectral and color flow Doppler). The study was technically difficult with many images being suboptimal in quality. Reason For Study: Known CAD, Dyspnea Ordering Physician: SAVANNA BRUNO Performed By: Kati Cedeno Interpretation Summary The study was technically difficult with many images being suboptimal in quality. The left ventricular ejection fraction is preserved. There is mild concentric left ventricular hypertrophy. The left ventricle is grossly normal size. Doppler measurements suggest pseudonormalized left ventricular relaxation, which is associated with grade II/IV or mild to moderate diastolic dysfunction Regional wall motion abnormalities cannot be excluded due to limited visualization. The right ventricular systolic function is normal. The left atrium is mildly dilated. The right atrium is normal in size There is a trace to mild amount of mitral regurgitation There is no mitral valve stenosis. No aortic regurgitation is present. There is no aortic valve stenosis There is a trace or physiologic amount of tricuspid regurgitation Tricuspid regurgitation jet envelope not well defined to measure RV systolic pressure accurately. There is no pericardial effusion. MMode/2D Measurements \T\ Calculations RVDd: 3.4 cm LVIDd: 4.2 cm FS: 30.8 % Ao root diam: 2.7 cm IVSd: 1.1 cm LVIDs: 2.9 cm EDV(Teich): 79.7 ml LVPWd: 1.1 cm ESV(Teich): 32.8 ml Ao root area: 5.7 cm2 EF(Teich): 58.8 % LA dimension: 4.1 cm Doppler Measurements \T\ Calculations MV E max baldo: MV P1/2t max baldo: Ao V2 max: LV V1 max P.0 cm/sec 119.4 cm/sec 125.5 cm/sec 5.0 mmHg MV A max baldo: MV P1/2t: 63.4 msec Ao max PG: LV V1 max: 94.3 cm/sec 6.3 mmHg 111.6 cm/sec MV E/A: 1.3 MVA(P1/2t): 3.5 cm2 MV dec slope: 551.5 cm/sec2 MV dec time: 0.20 sec PA V2 max: 76.5 cm/sec PA max P.3 mmHg Left Ventricle The left ventricle is grossly normal size. There is mild concentric left ventricular hypertrophy. The left ventricular ejection fraction is preserved. Doppler measurements suggest pseudonormalized left ventricular relaxation, which is associated with grade II/IV or mild to moderate diastolic dysfunction. Regional wall motion abnormalities cannot be excluded due to limited visualization. Right Ventricle The right ventricle is grossly normal size. There is normal right ventricular wall thickness. The right ventricular systolic function is normal. Atria The right atrium is normal in size. The left atrium is mildly dilated. Interarterial septum not well visualized and not well dopplered. Cannot comment on ASD/PFO presence. Mitral Valve There is moderate mitral annular calcification. There is no mitral valve stenosis. There is a trace to mild amount of mitral regurgitation. Aortic Valve The aortic valve is mildly calcified. The aortic valve is grossly normal. There is no aortic valve stenosis. No aortic regurgitation is present. Tricuspid Valve The tricuspid valve is not well visualized, but is grossly normal. There is no tricuspid stenosis. There is a trace or physiologic amount of tricuspid regurgitation. Tricuspid regurgitation jet envelope not well defined to measure RV systolic pressure accurately. Pulmonic Valve The pulmonic valve is not well visualized. Great Vessels The aortic root is not well visualized. The inferior vena cava appeared normal and decreased > 50% with respiration (RAP 5-10 mmHg). Effusions There is no pericardial effusion. : SAVANNA BRUNO > Dorothea Lawrence
[2016-09-21] MEDS: FLUCONAZOLE 100 MG TABLET PO SCH (13:36)
[2016-09-21] MEDS: MINERAL OIL/PETROLATUM,WHITE CREAM 114 GM TP SCH (14:48)
[2016-09-21] MEDS: LACTOBACILLUS ACIDOPHILUS 250 MG TAB PO SCH ×2 (14:48→18:17)
--- NOTE | 2016-09-21 15:23 | PDOC PROGRESS REPORT ---
Subjective Progress Note for:: 09/21/16 Subjective:: Reason for visit: Follow-up urinary tract infection, weakness, diarrhea Hospital course: Per H&P "KEVIN INFANTE is a 70 year old female with a past medical history of recurrent urinary tract infections and poorly controlled diabetes mellitus type 2 that presented to the emergency department with complaint of high blood sugars. The patient stated she sometimes gets to take her insulin and is here because at her blood sugars have gone up. The patient also has chronic diarrhea which has been ongoing for several months that has been worked up on an outpatient basis but apparently has not seen GI. No blood in her stool. No abdominal pain. No fevers. Some nausea but no vomiting. The patient had urinalysis findings are consistent with urinary tract infection. Patient was given a dose of ceftriaxone while in the emergency department as well as IV insulin was referred to the hospitalist for admission and management. Upon assessment the patient she was lying on stretcher watching television. The patient was excited about breakfast admitted to an appetite. The patient stated that she did not want cereal. The patient engage the headline writer without issue. I introduced myself and my role and the patient had no questions with this. The patient was then seen by the patient navigator and the patient did not have any concerns. However later once the patient was admitted to the telemetry floor, the patient's daughter adamantly refused my (Ms. Strickland's) services. " I inherited her care on 09/19/2016 and found her lying in the bed reading the newspaper or watching television clearly in no acute distress, no family was available in the room at the time. The patient reports resolution of her diarrhea stating she has had a single bowel movement in the last 24 hours that was formed elements. She denies any abdominal pain. Overall she states she feels significantly improved meaning she feels less weak. On 09/20/2016 she finally had a bowel movement and unfortunately the stool is screening positive for C. difficile, fortunately she does not have any lingering abdominal discomfort and no nausea or vomiting. Furthermore, her urine culture is showing an ampicillin resistant Klebsiella pneumoniae, which of course warrants antibiotic treatment. Subjective: She denies chest pain, palpitations, nausea, vomiting, diarrhea (as noted above), fevers or chills. ROS: per HPI plus a total of 10 systems reviewed, pertinent positives and negatives noted above, remaining systems negative. Physical Exam Vital Signs: Temp Pulse Resp BP Pulse Ox 97.8 F 67 16 140/65 H 97 09/21/16 11:20 09/21/16 11:20 09/21/16 11:20 09/21/16 11:20 09/21/16 11:20 Intake & Output 09/20/16 09/21/16 09/22/16 06:59 06:59 06:59 Intake Total 2310 270 500 Output Total 850 3400 Balance 1460 -3130 500 PHYSICAL EXAM GENERAL: NAD; well developed, well nourished; moderately obese; alert and oriented to person, place, time, situation HEENT: normocephalic; no conjunctival injection, no scleral icterus; oral mucosa moist, RESPIRATORY: no accessory muscle use, no increased WOB, good air entry bilaterally; no wheezes, rales, rhonchi; no inspiratory crackles CARDIO: no JVD; RRR; no systolic murmur; no tachycardia VASCULAR: no abdominal bruit; no pallor; 2+ radial, DP pulse; normal capillary refill GI: soft; nondistended, large, misshapen due to surgical scar; moderate to severe diastases recti; normal bowel sounds; no rebound, rigidity, guarding; nontender NEURO: normal sensation; no dysarthria; no nystagmus; tongue protrudes midline; MSK: 4/5 strength; normal ROM hips; transitions without assistance but utilizes power chair for ambulation EXTREMITIES: no calf tender; no palpable cords in calf; no clubbing, cyanosis , pedal edema PSYCH: normal affect, normal mood SKIN: warm; moist; no petechiae; no telengectasias; no jaundice; no rash Results Laboratory Results: 09/21/16 06:54 09/21/16 06:54 09/21/16 09/21/16 06:54 06:54 WBC 9.5 RBC 3.79 Hgb 11.4 L Hct 33.1 L MCV 87 MCH 30.2 MCHC 34.6 RDW 13.9 Plt Count 283 Seg Neutrophils % 77.7 Lymphocytes % 11.3 L Monocytes % 5.8 Eosinophils % 4.7 Basophils % 0.5 Absolute Neutrophils 7.4 Absolute Lymphocytes 1.1 Absolute Monocytes 0.5 Absolute Eosinophils 0.4 Absolute Basophils 0.0 Sodium 136.5 L Potassium 3.8 Chloride 102 Carbon Dioxide 26 Anion Gap 9 BUN 10 Creatinine 0.94 Est GFR ( Amer) > 60 Est GFR (Non-Af Amer) 59 L Glucose 89 Calcium 9.4 Phosphorus 4.6 H Magnesium 1.7 09/18/16 08:37 Troponin I 0.023 Impressions: Chest X-Ray 09/18/16 05:06 IMPRESSION: HEART ENLARGED WITHOUT FAILURE. NO OTHER SIGNIFICANT RADIOGRAPHIC FINDING IN THE CHEST. Assessment & Plan - Diagnosis (1) C. difficile diarrhea Is this a current diagnosis for this admission?: YesPlan: Likely accounts for the worsening of her chronic diarrhea. Unfortunately she requires antibiotics for treatment of the urinary tract infection. Continue Flagyl Flagyl and lactobacillus. (2) UTI (urinary tract infection) Qualifiers: Urinary tract infection type: acute cystitis Hematuria presence: with hematuria Qualified Code(s): N30.01 - Acute cystitis with hematuria Is this a current diagnosis for this admission?: YesPlan: Secondary to ampicillin resistant Klebsiella pneumonia, continue Rocephin. (3) Sepsis Qualifiers: Sepsis type: sepsis due to unspecified organism Qualified Code(s): A41.9 - Sepsis, unspecified organism Is this a current diagnosis for this admission?: YesPlan: Improved. Secondary to the above. As evidenced by tachycardia, leukocytosis and a source. (4) Chronic diarrhea Is this a current diagnosis for this admission?: Yes (5) Coronary artery disease Qualifiers: Coronary Disease-Associated Artery/Lesion type: [place] artery [place] vs. transplanted heart: [place] heart Associated angina: without angina Qualified Code(s): I25.10 - Atherosclerotic heart disease of [place] coronary artery without angina pectoris Is this a current diagnosis for this admission?: Yes (6) Hypothyroidism Qualifiers: Hypothyroidism type: unspecified Qualified Code(s): E03.9 - Hypothyroidism, unspecified Is this a current diagnosis for this admission?: Yes (7) Obstructive sleep apnea Is this a current diagnosis for this admission?: Yes (8) Diabetes mellitus type 2 in obese Is this a current diagnosis for this admission?: Yes - Time Time Spent with patient: 25-34 minutes Medications reviewed and adjusted accordingly: Yes Anticipated discharge: Acute Rehab Within: within 24 hours
[2016-09-21] MEDS: ATORVASTATIN CALCIUM 40 MG TABLET PO SCH (22:46)
[2016-09-22] MEDS: CEFTRIAXONE 1 GM/D5W RTU 1 GM/50 ML RTUPB IV SCH (07:03)
[2016-09-22] MEDS: HEPARIN SOD (PORCINE) 5,000 UNIT/ML 1 ML SYRINGE SUBCUT SCH ×2 (07:04→13:51)
[2016-09-22] MEDS: METRONIDAZOLE 500 MG TABLET PO SCH ×2 (07:04→13:50)
[2016-09-22] MEDS: INSULIN REG, HUMAN 100 UNIT/ML 3 ML VIAL (PYX) SUBCUT SCH ×2 (07:50→13:46)
[2016-09-22] MEDS: INSULIN NPH (ISOPHANE), HUMAN 100 UNIT/ML 3 ML SUBCUT SCH (10:09)
[2016-09-22] MEDS: RANOLAZINE 500 MG TAB.SR.12H PO SCH (10:12)
[2016-09-22] MEDS: METOPROLOL SUCCINATE 50 MG TAB.SR.24H PO SCH (10:13)
[2016-09-22] MEDS: ISOSORBIDE MONONITRATE 30 MG TAB.ER.24H PO SCH (10:13)
[2016-09-22] MEDS: ASPIRIN 81 MG TABLET, ENT COATED PO SCH (10:14)
[2016-09-22] MEDS: CLOPIDOGREL BISULFATE 75 MG TABLET PO SCH (10:14)
[2016-09-22] MEDS: FAMOTIDINE 20 MG TABLET PO SCH (10:15)
[2016-09-22] MEDS: LACTOBACILLUS ACIDOPHILUS 250 MG TAB PO SCH ×2 (10:15→20:03)
[2016-09-22] MEDS: LEVOTHYROXINE SODIUM 0.1 MG TABLET PO SCH (10:15)
[2016-09-22] MEDS: SENNOSIDES/DOCUSATE 8.6-50 MG 1 EACH TABLET PO SCH ×2 (10:15→20:03)
[2016-09-22] MEDS: VALSARTAN 160 MG TABLET PO SCH (10:15)
[2016-09-22] MEDS: BUPROPION HCL 75 MG TABLET PO SCH (10:30)
[2016-09-22] MEDS: FLUCONAZOLE 100 MG TABLET PO SCH (13:50)
[2016-09-22] MEDS ORDERED: INSULIN REG, HUMAN 100 UNIT/ML 3 ML VIAL (PYX) SUBCUT SCH (14:51)
[2016-09-22] MEDS: MINERAL OIL/PETROLATUM,WHITE CREAM 114 GM TP SCH (16:03)
--- NOTE | 2016-09-22 18:45 | PDOC DISCHARGE SUMMARY ---
General - Admit/Disc Date/PCP Admission Date/Primary Care Provider: 09/18/16 07:45 LENA David JOSH, Discharge Date: 09/22/16 - Discharge Diagnosis (1) C. difficile diarrhea Is this a current diagnosis for this admission?: YesSummary: Patient was treated with Flagyl 500 mg 3 times a day and probiotics She was discharged on these medications for 10 days (2) Coronary artery disease Is this a current diagnosis for this admission?: YesSummary: Patient did not have any chest pain She remained asymptomatic There was no evidence of an acute coronary syndrome (3) Hypothyroidism Is this a current diagnosis for this admission?: YesSummary: Her prior medications were continued (4) Obstructive sleep apnea Is this a current diagnosis for this admission?: Yes (5) Sepsis Is this a current diagnosis for this admission?: YesSummary: Patient did have a white blood count of 22,000 and a heart rate 120 on admission Sepsis was secondary to UTI and C. difficile colitis It did resolve At time of discharge her white blood count is normal (6) UTI (urinary tract infection) Is this a current diagnosis for this admission?: YesSummary: 09/18/16 06:22 Urine Culture - Final Clean Catch Midstream Klebsiella Pneumoniae Klebsiella was giron sensitive Patient was discharged on Cipro (7) Diabetes mellitus type 2 in obese Is this a current diagnosis for this admission?: YesSummary: 09/18/16 09/18/16 09/18/16 03:34 03:34 05:22 Glucose 347 H POC Glucose 286 H Hemoglobin A1c % 10.6 H 09/22/16 09/22/16 09/22/16 07:05 09:09 12:46 Glucose POC Glucose 127 H 111 H 99 Hemoglobin A1c % Hyperglycemia on admission Patient's insulin was reevaluated And actually the dose of the NPH was reduced to 60 units twice a day We also reduced her regular insulin with meals as her blood sugars were low at time of discharge - Additional Information Resuscitation Status: Full Code Discharge Diet: Cardiac, Diabetic Discharge Activity: Activity As Tolerated Home Medications: Aspirin [Ecotrin 81 mg EC Tablet] 81 mg PO DAILY 09/18/16 Atorvastatin Calcium [Lipitor 40 mg Tablet] 40 mg PO QHS 09/18/16 Bupropion HCl [Wellbutrin Xl 300mg 24hr Tablet] 300 mg PO QAM 09/18/16 Clopidogrel Bisulfate [Plavix 75 mg Tablet] 75 mg PO DAILY 09/18/16 Insulin NPH Human Isophane [Humulin N] 90 units SQ Q12 09/18/16 Insulin Regular, Human [Humulin R (Reg) Insulin 100 unit/mL] 0 units SQ .PERSLIDINGSCALE 09/18/16 Isosorbide Mononitrate [Imdur 30 mg Tablet.er] 30 mg PO Q12 09/18/16 Levothyroxine Sodium [Synthroid] 200 mcg PO DAILY 09/18/16 Lipase/Protease/Amylase [Zenpep Dr 3,000 Units Capsule] 1 each PO TID 09/18/16 Nitroglycerin [Nitrostat 0.4 mg (1/150 Gr) Tabs 25/Bottle] 0.4 mg SL Q5MP PRN Ranitidine HCl [Zantac] 300 mg PO QHS 09/18/16 Ranolazine [Ranexa 500 mg Tab.sr] 500 mg PO Q12 09/18/16 Valsartan [Diovan 160 mg Tablet] 160 mg PO DAILY 09/18/16 Ciprofloxacin HCl [Cipro 250 mg Tablet] 1 tab PO BID #14 tab 09/22/16 Fluconazole [Diflucan 100 mg Tablet] 100 mg PO NOON #10 tablet 09/22/16 Insulin Regular, Human [Humulin R (Reg) Insulin 100 unit/mL] 8 unit SUBCUT MEALS #1 unit 09/22/16 Metoprolol Succinate [Toprol Xl 50 mg Tab.sr] 50 mg PO DAILY #30 tab.sr.24h Metronidazole [Flagyl 500 mg Tablet] 500 mg PO Q8 #30 tablet 09/22/16 NPH, Human Insulin Isophane [Humulin N (NPH) Insulin 100 unit/mL] 60 unit SUBCUT Q12 #1 bottle 09/22/16 History of Present Illness Patient complains of: High blood sugars History of Present Illness: KEVIN INFANTE is a 70 year old female with a past medical history of recurrent urinary tract infections and poorly controlled diabetes mellitus type 2 that presented to the emergency department with complaint of high blood sugars. The patient stated she sometimes gets to take her insulin and is here because at her blood sugars have gone up. The patient also has chronic diarrhea which has been ongoing for several months that has been worked up on an outpatient basis but apparently has not seen GI. No blood in her stool. No abdominal pain. No fevers. Some nausea but no vomiting. The patient had urinalysis findings are consistent with urinary tract infection. Patient was given a dose of ceftriaxone while in the emergency department as well as IV insulin was referred to the hospitalist for admission and management. Hospital Course Hospital Course: See above Physical Exam Vital Signs: Temp Pulse Resp BP Pulse Ox 97.8 F 69 16 134/53 H 97 09/22/16 16:40 09/22/16 16:40 09/22/16 16:40 09/22/16 16:40 09/22/16 16:40 Intake & Output 09/21/16 09/22/16 09/23/16 00:59 00:59 00:59 Intake Total 820 1095 540 Output Total 1300 3100 1100 Balance -480 -2005 -560 General appearance: PRESENT: no acute distress, well-developed, well-nourished Head exam: PRESENT: atraumatic, normocephalic Eye exam: PRESENT: conjunctiva pink, EOMI, PERRLA. ABSENT: scleral icterus Ear exam: PRESENT: normal external ear exam Mouth exam: PRESENT: moist, tongue midline Neck exam: ABSENT: carotid bruit, JVD, lymphadenopathy, thyromegaly Respiratory exam: PRESENT: clear to auscultation chadd. ABSENT: rales, rhonchi, wheezes Cardiovascular exam: PRESENT: RRR. ABSENT: diastolic murmur, rubs, systolic murmur Pulses: PRESENT: normal dorsalis pedis pul Vascular exam: PRESENT: normal capillary refill GI/Abdominal exam: PRESENT: normal bowel sounds, soft. ABSENT: distended, guarding, mass, organolmegaly, rebound, tenderness Rectal exam: PRESENT: deferred Extremities exam: PRESENT: full ROM. ABSENT: calf tenderness, clubbing, pedal edema Neurological exam: PRESENT: alert, awake, oriented to person, oriented to place , oriented to time, oriented to situation, CN II-XII grossly intact. ABSENT: motor sensory deficit Psychiatric exam: PRESENT: appropriate affect, normal mood. ABSENT: homicidal ideation, suicidal ideation Skin exam: PRESENT: dry, intact, warm. ABSENT: cyanosis, rash Results Laboratory Results: 09/21/16 06:54 09/21/16 06:54 09/18/16 08:37 Troponin I 0.023 Impressions: Chest X-Ray 09/18/16 05:06 IMPRESSION: HEART ENLARGED WITHOUT FAILURE. NO OTHER SIGNIFICANT RADIOGRAPHIC FINDING IN THE CHEST.
[2016-09-22 20:45] VITALS: BP 159/58
== END 2016-09-22 20:00 | disposition home health service (06) | DRG 872 ==
LOC: ER 01:10 → EH 07:45 → UNDOADMIN 08:17 → EH 08:17 → 4N 10:30
DX: A41.9 Sepsis, unspecified organism (principal); N30.01 Acute cystitis with hematuria; Z68.41 Body mass index [BMI] 40.0-44.9, adult; A04.7 Enterocolitis due to Clostridium difficile; K52.9 Noninfective gastroenteritis and colitis, unspecified; I11.0 Hypertensive heart disease with heart failure; I50.9 Heart failure, unspecified; I25.2 Old myocardial infarction; E11.65 Type 2 diabetes mellitus with hyperglycemia; G47.33 Obstructive sleep apnea (adult) (pediatric); E03.9 Hypothyroidism, unspecified; B96.1 Klebsiella pneumoniae [K. pneumoniae] as the cause of diseases classified elsewhere; I48.91 Unspecified atrial fibrillation; I25.10 Atherosclerotic heart disease of native coronary artery without angina pectoris; F32.9 Major depressive disorder, single episode, unspecified; E78.5 Hyperlipidemia, unspecified; E66.9 Obesity, unspecified; Z88.2 Allergy status to sulfonamides; Z79.82 Long term (current) use of aspirin; Z79.4 Long term (current) use of insulin; Z90.49 Acquired absence of other specified parts of digestive tract; Z90.710 Acquired absence of both cervix and uterus; Z79.899 Other long term (current) drug therapy; Z95.5 Presence of coronary angioplasty implant and graft; Z82.49 Family history of ischemic heart disease and other diseases of the circulatory system; Z87.440 Personal history of urinary (tract) infections; Z83.3 Family history of diabetes mellitus; Z80.6 Family history of leukemia
CPT/HCPCS: 36415; 71010; 80048; 81001; 82962; 83036; 83735; 84100; 84443; 84484; 85025; 85027; 87040; 87086; 87088; 87186; 87493; 93005; 93010; 93306; 96374; 99285; J0696; J1644; J1815; J3490; J7030

== ENCOUNTER 2016-10-02 16:57 | Emergency (ER) | payer MEDICARE, BC ==
[2016-10-02] MEDS ORDERED: ASPIRIN 81 MG TABLET, CHEWABLE PO ONE (17:43)
[2016-10-02 18:03] LABS: ABSOLUTE BASOPHILS # (AUTO) 0.1 10^3/uL (0.0-0.2); ABSOLUTE EOSINOPHILS # (AUTO) 0.3 10^3/uL (0.0-0.6); ABSOLUTE LYMPHOCYTES (AUTO) 2.8 10^3/uL (0.5-4.7); ABSOLUTE MONOCYTES (AUTO) 0.7 10^3/uL (0.1-1.4); ABSOLUTE NEUT (AUTO) 8.9 10^3/uL (1.7-8.2); BASOPHILS % (AUTO) 0.6 % (0-2); EOSINOPHILS % (AUTO) 2.5 % (0-6); HEMATOCRIT 35.5 % (36.0-47.0); HGB HCT DIFFERENCE 0.5; MEAN CORPUSCULAR HEMOGLOBIN 30.3 pg (27.0-33.4); MEAN CORPUSCULAR HGB CONC 33.8 g/dL (32.0-36.0); MEAN CORPUSCULAR VOLUME 90 fl (80-97); MONOCYTES % (AUTO) 5.4 % (3-13); RED BLOOD COUNT 3.96 10^6/uL (3.72-5.28); RED CELL DISTRIBUTION WIDTH 14.4 % (11.5-14.0); SEGMENTED NEUTROPHILS % (AUTO) 69.5 % (42-78); WHITE BLOOD COUNT 12.9 10^3/uL (4.0-10.5)
[2016-10-02 18:08] LABS: PROTHROMBIN TIME 11.9 SEC (11.4-15.4)
[2016-10-02 18:26] LABS: ALANINE AMINOTRANSFERASE 28 U/L (9-52); ALBUMIN 3.2 g/dL (3.5-5.0); ALKALINE PHOSPHATASE 175 U/L (38-126); ANION GAP 12 (5-19); ASPARTATE AMINO TRANSFERASE 23 U/L (14-36); BILIRUBIN,TOTAL 0.4 mg/dL (0.2-1.3); BLOOD UREA NITROGEN 13 mg/dL (7-20); CALCIUM 9.5 mg/dL (8.4-10.2); CARBON DIOXIDE 25 mmol/L (22-30); CHLORIDE 99 mmol/L (98-107); CREATINE KINASE 26 U/L (30-135); CREATININE RESULT 0.78 mg/dL (0.52-1.25); GLUCOSE 366 mg/dL (75-110); POTASSIUM 3.8 mmol/L (3.6-5.0); SODIUM 135.9 mmol/L (137-145); TOTAL PROTEIN 6.2 g/dL (6.3-8.2)
[2016-10-02 18:38] LABS: CREATINE KINASE MB 0.72 ng/mL (<4.55)
[2016-10-02 18:40] LABS: TROPONIN I 0.079 ng/mL
--- NOTE | 2016-10-02 19:14 | ER Document Report ---
ED General - General Chief Complaint: Chest Pain Stated Complaint: CHEST PAIN Mode of Arrival: Ambulatory Information source: Patient Notes: 70-year-old female history of triple bypass in 2011 presents with complaints of chest pressure reading to drop down left arm associated with shortness of breath and weakness. Episode occurred about 4-5 hours prior to arrival. Patient notes she took one nitroglycerin at home which did not resolve her pain. Patient was given a second nitroglycerin by EMS which completely resolved her symptoms. TRAVEL OUTSIDE OF THE [place] IN LAST 30 DAYS: No - HPI Onset: Just prior to arrival Onset/Duration: Sudden Quality of pain: Pressure Severity: Mild Pain Level: 1 Associated symptoms: Chest pain, Shortness of breath Exacerbated by: Denies Relieved by: Denies Similar symptoms previously: No Recently seen / treated by doctor: No - Related Data Allergies/Adverse Reactions: Sulfa (Sulfonamide Antibiotics) Allergy (Severe, Verified 12/03/15 14:47) Home Medications: Current Home Medications NPH, Human Insulin Isophane [Novolin N (NPH) Insulin 100 unit/mL] 90 unit SUBCUT BIDACBS 10/02/16 [History] Past Medical History - Social History Smoking Status: Never Smoker Cigarette use (# per day): No Chew tobacco use (# tins/day): No Smoking Education Provided: No Family History: None - Past Medical History Cardiac Medical History: Reports: Hx Atrial Fibrillation, Hx Congestive Heart Failure, Hx Coronary Artery Disease, Hx Heart Attack, Hx Hypercholesterolemia, Hx Hypertension Pulmonary Medical History: Reports: Hx Sleep Apnea Denies: Hx Tuberculosis Endocrine Medical History: Reports: Hx Diabetes Mellitus Type 2 Renal/ Medical History: Denies: Hx Peritoneal Dialysis Psychiatric Medical History: Reports: Hx Depression Past Surgical History: Reports: Hx Abdominal Surgery - fistula in abdomen, Hx Appendectomy, Hx Cardiac Catheterization, Hx Cardiac Surgery - triple bypass, stent, Hx Cholecystectomy, Hx Coronary Artery Bypass Graft - Triple-vessel, Hx Hysterectomy, Hx Tonsillectomy, Other - Abdominal wall vesicular fistula repair - Immunizations Immunizations up to date: Yes Hx Diphtheria, Pertussis, Tetanus Vaccination: Yes Hx Pneumococcal Vaccination: 06/11/15 Review of Systems - Review of Systems Notes: REVIEW OF SYSTEMS: CONSTITUTIONAL : Denies fever, chills, or sweats. Denies recent illness. EENT: Denies eye, ear, throat, or mouth pain or symptoms. Denies nasal or sinus congestion or discharge. Denies throat, tongue, or mouth swelling or difficulty swallowing. CARDIOVASCULAR: Admits to chest pain RESPIRATORY: Admits to shortness of breath GASTROINTESTINAL: Denies abdominal pain or distention. Denies nausea, vomiting , or diarrhea. Denies blood in vomitus, stools, or per rectum. Denies black, tarry stools. Denies constipation. GENITOURINARY: Denies difficulty urinating, painful urination, burning, frequency, blood in urine, or discharge. FEMALE GENITOURINARY: Denies vaginal bleeding, heavy or abnormal periods, irregular periods. Denies vaginal discharge or odor. MUSCULOSKELETAL: Denies back or neck pain or stiffness. Denies joint pain or swelling. SKIN: Denies rash, lesions or sores. HEMATOLOGIC : Denies easy bruising or bleeding. LYMPHATIC: Denies swollen, enlarged glands. NEUROLOGICAL: Denies confusion or altered mental status. Denies passing out or loss of consciousness. Denies dizziness or lightheadedness. Denies headache. Denies weakness or paralysis or loss of use of either side. Denies problems with gait or speech. Denies sensory loss, numbness, or tingling. Denies seizures. PSYCHIATRIC: Denies anxiety or stress. Denies depression, suicidal ideation, or homicidal ideation. ALL OTHER SYSTEMS REVIEWED AND NEGATIVE. Dictation was performed using [employer] voice recognition software PHYSICAL EXAMINATION: GENERAL: Well-appearing, well-nourished and in no acute distress. HEAD: Atraumatic, normocephalic. EYES: Pupils equal round and reactive to light, extraocular movements intact, conjunctiva are normal. ENT: Nares patent, oropharynx clear without exudates. Moist mucous membranes. NECK: Normal range of motion, supple without lymphadenopathy LUNGS: Breath sounds clear to auscultation bilaterally and equal. No wheezes rales or rhonchi. HEART: Regular rate and rhythm without murmurs ABDOMEN: Soft, nontender, nondistended abdomen. No guarding, no rebound. No masses appreciated. Female : deferred Musculoskeletal: Normal range of motion, no pitting or edema. No cyanosis. NEUROLOGICAL: Cranial nerves grossly intact. Normal speech, normal gait. Normal sensory, motor exams PSYCH: Normal mood, normal affect. SKIN: Warm, Dry, normal turgor, no rashes or lesions noted. Physical Exam - Vital signs Vitals: Resp Pulse Ox 15 97 03/10/17 17:11 10/02/16 17:11 Course - Re-evaluation Re-evalutation: 10/02/16 19:13 Patient at this time is in no distress, has no chest pain. Patient was given nitroglycerin and aspirin prior to arrival First set of cardiac enzymes are negative I will order a second set to trend out enzymes prior to admission 10/02/16 23:10 Second set of cardiac enzymes have elevated and a positive at this time patient will be started on heparin drip 10/02/16 23:43 [facility] paged [facility]ant paged 10/03/16 00:[address] alejo at [facility], pt accepted awayting room assignment - Vital Signs Vital signs: Temp Pulse Resp BP Pulse Ox 19 135/56 H 96 10/02/16 21:02 10/02/16 21:02 10/02/16 21:02 - Laboratory Result Diagrams: 10/02/16 17:25 10/02/16 17:25 Laboratory results interpreted by me: 10/02/16 10/02/16 10/02/16 17:25 17:25 23:41 WBC 12.9 H Hct 35.5 L RDW 14.4 H Absolute Neutrophils 8.9 H Sodium 135.9 L Glucose 366 H POC Glucose 201 H Alkaline Phosphatase 175 H Creatine Kinase 26 L Total Protein 6.2 L Albumin 3.2 L - Diagnostic Test Radiology reviewed: Image reviewed, Reports reviewed - EKG Interpretation by Me EKG shows normal: Sinus rhythm, Beasley, Intervals, QRS Complexes - Consults [facility] Time consulted: 23:11 Reason for consultation: 10/02/16 23:11 nstemi noted Critical Care Note - Critical Care Note Total time excluding time spent on procedures (mins): 34 Comments: 34 minutes of critical care time spent in direct contact evaluating and reevaluating the patient, treating symptoms, reviewing labs and studies and speaking with family and consultants excluding any procedures Discharge - Discharge Clinical Impression: Non-ST elevation (NSTEMI) myocardial infarction, Hyperglycemia Chest pain Qualifiers: Chest pain type: unspecified Qualified Code(s): R07.9 - Chest pain, unspecified Condition: Stable Disposition: [facility]
[2016-10-02] MEDS ORDERED: INSULIN REG, HUMAN 100 UNIT/ML 3 ML VIAL (PYX) SUBCUT ONE (19:27)
[2016-10-02] MEDS ORDERED: LABETALOL HCL INJ 20 MG/4 ML DISP.SYRIN IV ONE (19:29)
--- NOTE | 2016-10-02 19:36 | EKG REPORT ---
SEVERITY:- ABNORMAL ECG - SINUS TACHYCARDIA LEFT AXIS DEVIATION LVH WITH SECONDARY REPOLARIZATION ABNORMALITY : Confirmed by: Dorothea Lawrence 02-Oct-2016 19:35:15
[2016-10-02] MEDS ORDERED: HEPARIN SOD (PORCINE) 1,000 UNIT/ML 10 ML VIAL IV PRN (23:10)
[2016-10-02] MEDS ORDERED: HEPARIN SOD (PORCINE) 1,000 UNIT/ML 10 ML VIAL IV ONE (23:10)
[2016-10-02] MEDS ORDERED: HEPARIN SODIUM,PORCINE/D5W 250 ML IV PRN (23:10)
[2016-10-02 23:53] LABS: PROTHROMBIN TIME 12.3 SEC (11.4-15.4)
[2016-10-02 23:54] LABS: PARTIAL THROMBOPLASTIN TIME 28.4 SEC (23.5-35.8)
[2016-10-03] MEDS ORDERED: LABETALOL HCL INJ 20 MG/4 ML DISP.SYRIN IV ONE (00:50)
[2016-10-03 04:17] VITALS: BP 136/70
--- NOTE | 2016-10-03 10:50 | EKG REPORT ---
SEVERITY:- ABNORMAL ECG - SINUS RHYTHM LVH WITH SECONDARY REPOLARIZATION ABNORMALITY : Confirmed by: Dorothea Lawrence 03-Oct-2016 10:48:59
== END 2016-10-03 04:20 | disposition short-term general hospital (02) ==
LOC: ER 16:57
DX: I21.4 Non-ST elevation (NSTEMI) myocardial infarction (principal); E11.65 Type 2 diabetes mellitus with hyperglycemia; R07.89 Other chest pain; R06.02 Shortness of breath; R53.1 Weakness; I25.10 Atherosclerotic heart disease of native coronary artery without angina pectoris; I25.2 Old myocardial infarction; I10 Essential (primary) hypertension; Z95.1 Presence of aortocoronary bypass graft; Z88.2 Allergy status to sulfonamides
CPT/HCPCS: 93005; 96376; 99291; 96375; 96365; 96366; 36415; 82553; 82962; 82550; 85025; 85610; 85730; 80053; 84484; 71010; 93010; J1644 ×2; J3490 ×2; A9270; J1815

== ENCOUNTER 2017-01-12 12:58 | Emergency (ER) | payer MEDICARE, BC ==
[2017-01-12] MEDS ORDERED: ASPIRIN 81 MG TABLET, CHEWABLE PO ONE (13:12)
[2017-01-12] MEDS ORDERED: NITROGLYCERIN 2% OINTMENT 1 GM PACKET TP ONE (13:32)
--- NOTE | 2017-01-12 13:37 | ER Document Report ---
ED Cardiac - General Stated Complaint: HEADACHE Time Seen by Provider: 01/12/17 13:32 Information source: Patient Notes: Patient is a 71-year-old female with past medical history as recorded including a myocardial infarction with 3 cardiac stents, the last September of last year, who presents with the onset around 3 hours ago of some "dull" substernal chest pressure radiating to her left shoulder. She states nausea without vomiting, fevers, diaphoresis, calf pain or leg swelling, shortness of breath, or recent trips or travel. TRAVEL OUTSIDE OF THE [place] IN LAST 30 DAYS: No - HPI Patient complains to provider of: Chest pain Was the onset of pain: Gradual Is the pain a: New problem Chest pain location: Substernal Quality of pain: Constant Chest pain radiation location: Left shoulder Severity now: Mild Severity at worst: Moderate Pain level currently: 1 Cardiac risk factors: Diabetes, Hypertension, Hx LA Positive cardiac history: Yes Associated symptoms: Other - See above Exacerbated by: Denies Relieved by: Nothing Similar symptoms previously: Yes Recently seen / treated by doctor: Yes - Related Data Allergies/Adverse Reactions: Sulfa (Sulfonamide Antibiotics) Allergy (Severe, Verified 12/03/15 14:47) Past Medical History - General Information source: Patient - Social History Smoking Status: Unknown if Ever Smoked Cigarette use (# per day): No Chew tobacco use (# tins/day): No Smoking Education Provided: No Frequency of alcohol use: None Drug Abuse: None Family History: None - Past Medical History Cardiac Medical History: Reports: Hx Atrial Fibrillation, Hx Congestive Heart Failure, Hx Coronary Artery Disease, Hx Heart Attack, Hx Hypercholesterolemia, Hx Hypertension Pulmonary Medical History: Reports: Hx Sleep Apnea Denies: Hx Tuberculosis Endocrine Medical History: Reports: Hx Diabetes Mellitus Type 2 Renal/ Medical History: Denies: Hx Peritoneal Dialysis Psychiatric Medical History: Reports: Hx Depression Past Surgical History: Reports: Hx Abdominal Surgery - fistula in abdomen, Hx Appendectomy, Hx Cardiac Catheterization, Hx Cardiac Surgery - triple bypass, stent, Hx Cholecystectomy, Hx Coronary Artery Bypass Graft - Triple-vessel, Hx Hysterectomy, Hx Tonsillectomy, Other - Abdominal wall vesicular fistula repair - Immunizations Immunizations up to date: Yes Hx Diphtheria, Pertussis, Tetanus Vaccination: Yes Hx Pneumococcal Vaccination: 06/11/15 Review of Systems - Review of Systems Constitutional: denies: Fever EENT: denies: Eye discharge, Nose discharge Cardiovascular: denies: Palpitations, Heart racing, Dizziness, Lightheaded Respiratory: denies: Short of breath Gastrointestinal: denies: Abdominal pain, Vomiting Genitourinary: denies: Dysuria Musculoskeletal: denies: Leg swelling Skin: Other - no hives. denies: Rash Neurological/Psychological: Other - no slurred speech -: Yes All other systems reviewed and negative Physical Exam - Vital signs Vitals: Resp Pulse Ox 14 99 01/12/17 13:31 01/12/17 13:31 Interpretation: Normal Notes: Reviewed vital signs and nursing note as charted by RN. CONSTITUTIONAL: Alert and oriented and responds appropriately to questions. Well -appearing; well-nourished HEAD: Normocephalic; atraumatic EYES: PERRL ENT: Normal nose; no rhinorrhea; moist mucous membranes; pharynx without lesions noted NECK: Supple without meningismus; non-tender CARD: Regular rate and rhythm; no murmurs, no clicks, no rubs, no gallops; symmetric distal pulses RESP: Normal chest excursion without splinting or tachypnea; breath sounds clear and equal bilaterally; no wheezes, no rhonchi, no rales ABD/GI: Normal bowel sounds; non-distended; soft, non-tender BACK: The back appears normal and is non-tender to palpation, there is no CVA tenderness EXT: Normal ROM in all joints; non-tender to palpation; no cyanosis, no effusions, no edema SKIN: Normal color for age and race; warm; dry; good turgor; capillary refill < 2 seconds; no acute lesions noted NEURO: Moves all extremities equally; Motor and sensory function intact PSYCH: The patient's mood and manner are appropriate. Grooming and personal hygiene are appropriate. Course - Re-evaluation Re-evalutation: 01/12/17 13:39 Given the above history and physical examination I do believe the risk of pulmonary embolism and aortic dissection to be unlikely. Patient is currently 1 out of 10 on the pain scale with no shortness of breath, calf pain, or leg swelling. She has no radiation to her back. Pt has taken 325 aspirin at home [employer]. EKG shows a heart rate of 86, normal sinus rhythm, Left axis deviation, LVH, no obvious ST elevation or depression. 06/20/17 15:35 Patient has had blood draw attempts 6 without success. An IV was placed but has subsequently blown. She will not allow a femoral or IJ stick. We have called lab to draw the blood at bedside. Patient denies any pain at this time. Chest x-ray shows normal heart, normal mediastinum, no fractures, normal lung torres, no pneumothorax. 01/12/17 17:19 Patient denies any chest pain at this time but does have an elevated troponin. I have explained to her the importance of allowing us to obtain an IV. Creatinine has resulted and we will provide a dose of Lovenox. Repeat EKG has been ordered. I am trying to transfer the patient to [facility] where she was last treated with a cardiac stent. Patient will allow us to attempt an ultrasound-guided IV. She still does not want me to place a IJ at this time. 01/12/17 17:46 Repeat EKG shows a heart rate of 80, normal sinus rhythm, left ventricular hypertrophy, no obvious ST elevation or depression. No change from previous 01/12/17 18:42 Patient still denies any chest pain. Repeat troponin as recorded. I have provided a small dose of insulin. Lovenox has been provided. - Vital Signs Vital signs: Temp Pulse Resp BP Pulse Ox 16 154/93 H 95 01/12/17 17:42 01/12/17 17:42 01/12/17 17:42 - Laboratory Result Diagrams: 01/12/17 16:25 01/12/17 16:25 Laboratory results interpreted by me: 01/12/17 01/12/17 16:25 16:25 WBC 11.1 H Sodium 136.0 L Glucose 331 H Alkaline Phosphatase 156 H Creatine Kinase 28 L Albumin 3.4 L Critical Care Note - Critical Care Note Total time excluding time spent on procedures (mins): 35 Discharge - Discharge Clinical Impression: Non-STEMI (non-ST elevated myocardial infarction) Condition: Serious Disposition: [facility]
--- NOTE | 2017-01-12 14:03 | RADIOLOGY REPORT (SQ) ---
EXAM DESCRIPTION: CHEST SINGLE VIEW COMPLETED DATE/TIME: 01/12/2017 1:36 pm REASON FOR STUDY: cp COMPARISON: 10/02/2016 EXAM PARAMETERS: NUMBER OF VIEWS: One view. TECHNIQUE: Single frontal radiographic view of the chest acquired. RADIATION DOSE: NA LIMITATIONS: Poor inspiration. FINDINGS: LUNGS AND PLEURA: Minimal atelectasis or scarring in the left mid lung unchanged. No acut e opacities, masses or pneumothorax. No pleural effusion. MEDIASTINUM AND HILAR STRUCTURES: No masses. Contour normal. HEART AND VASCULAR STRUCTURES: Heart normal in size. Normal vasculature. BONES: No acute findings. HARDWARE: None in the chest. OTHER: No other significant finding. IMPRESSION: NO ACUTE RADIOGRAPHIC FINDING IN THE CHEST. TECHNICAL DOCUMENTATION: JOB ID: [id number]
[2017-01-12] MEDS ORDERED: ONDANSETRON HCL INJ/PF 4 MG/2 ML SDV IV ONE (14:28)
[2017-01-12 16:41] LABS: ABSOLUTE EOSINOPHILS # (AUTO) 0.2 10^3/uL (0.0-0.6); ABSOLUTE LYMPHOCYTES (AUTO) 2.7 10^3/uL (0.5-4.7); ABSOLUTE MONOCYTES (AUTO) 0.5 10^3/uL (0.1-1.4); ABSOLUTE NEUT (AUTO) 7.7 10^3/uL (1.7-8.2); BASOPHILS % (AUTO) 0.3 % (0-2); EOSINOPHILS % (AUTO) 1.4 % (0-6); HEMATOCRIT 40.1 % (36.0-47.0); HEMOGLOBIN 13.1 g/dL (12.0-15.5); HGB HCT DIFFERENCE -0.8; LYMPHOCYTES % (AUTO) 24.4 % (13-45); MEAN CORPUSCULAR HGB CONC 32.6 g/dL (32.0-36.0); MEAN CORPUSCULAR VOLUME 86 fl (80-97); MONOCYTES % (AUTO) 4.9 % (3-13); RED BLOOD COUNT 4.66 10^6/uL (3.72-5.28); WHITE BLOOD COUNT 11.1 10^3/uL (4.0-10.5)
[2017-01-12 16:58] LABS: ALANINE AMINOTRANSFERASE 33 U/L (9-52); ALBUMIN 3.4 g/dL (3.5-5.0); ALKALINE PHOSPHATASE 156 U/L (38-126); ANION GAP 12 (5-19); ASPARTATE AMINO TRANSFERASE 31 U/L (14-36); BILIRUBIN,DIRECT 0.3 mg/dL (0.0-0.4); BILIRUBIN,TOTAL 0.5 mg/dL (0.2-1.3); BLOOD UREA NITROGEN 14 mg/dL (7-20); CALCIUM 9.5 mg/dL (8.4-10.2); CARBON DIOXIDE 25 mmol/L (22-30); CHLORIDE 99 mmol/L (98-107); CREATINE KINASE 28 U/L (30-135); CREATININE RESULT 0.84 mg/dL (0.52-1.25); GLUCOSE 331 mg/dL (75-110); POTASSIUM 4.4 mmol/L (3.6-5.0); TOTAL PROTEIN 6.7 g/dL (6.3-8.2)
--- NOTE | 2017-01-12 17:02 | EKG REPORT ---
SEVERITY:- ABNORMAL ECG - SINUS RHYTHM LEFT VENTRICULAR HYPERTROPHY : Confirmed by: Kayli Swann MD 12-Jan-2017 17:02:00
[2017-01-12 17:10] LABS: CREATINE KINASE MB 1.89 ng/mL (<4.55)
[2017-01-12 17:13] LABS: TROPONIN I 0.225 ng/mL
[2017-01-12] MEDS ORDERED: ENOXAPARIN SODIUM INJ 100 MG/1 ML DISP.SYRIN SUBCUT SCH (17:30)
[2017-01-12] MEDS ORDERED: NORMAL SALINE 1000 ML 1,000 ML IV ONE (17:31)
[2017-01-12 17:48] LABS: PROTHROMBIN TIME 12.9 SEC (11.4-15.4)
[2017-01-12] MEDS ORDERED: INSULIN REG, HUMAN 100 UNIT/ML 3 ML VIAL (PYX) IV ONE (18:42)
[2017-01-12 21:19] VITALS: BP 113/62
--- NOTE | 2017-01-13 08:39 | EKG REPORT ---
SEVERITY:- ABNORMAL ECG - SINUS RHYTHM LEFT VENTRICULAR HYPERTROPHY : Confirmed by: Kayli Swann MD 13-Jan-2017 08:39:16
== END 2017-01-12 22:12 | disposition short-term general hospital (02) ==
LOC: ER 12:58
DX: I21.4 Non-ST elevation (NSTEMI) myocardial infarction (principal); I10 Essential (primary) hypertension; I25.10 Atherosclerotic heart disease of native coronary artery without angina pectoris; I25.2 Old myocardial infarction; Z98.61 Coronary angioplasty status; Z95.1 Presence of aortocoronary bypass graft; R07.89 Other chest pain; R11.0 Nausea; E11.9 Type 2 diabetes mellitus without complications; Z88.2 Allergy status to sulfonamides
CPT/HCPCS: 93005; 99291; 96372; 96360; 36415; 82553; 82550; 85025; 85610; 85730; 80053; 84484; 71010; 93010; A9270 ×2; J7030; J1650; J1815; J2405

== ENCOUNTER 2017-01-31 16:04 | Observation (INO) | payer MEDICARE, BC ==
--- NOTE | 2017-01-31 16:48 | ER Document Report ---
ED Medical Screen (RME) - General Chief Complaint: High Blood Sugar Stated Complaint: SUGAR PROBLEMS Time Seen by Provider: 01/31/17 16:35 Mode of Arrival: Wheelchair Information source: Patient Notes: 71-year-old female multiple previous MIs multiple UTIs in the past presents with family with concerns of confusion and altered mental status over the past 3 days. Denies any fevers or chills I have greeted and performed a rapid initial assessment of this patient. A comprehensive ED assessment and evaluation of the patient, analysis of test results and completion of the medical decision making process will be conducted by additional ED providers. PHYSICAL EXAMINATION: GENERAL: Well-appearing, well-nourished and in no acute distress. HEAD: Atraumatic, normocephalic. EYES: Pupils equal round extraocular movements intact, conjunctiva are normal. ENT: Nares patent NECK: Normal range of motion LUNGS: No respiratory distress Musculoskeletal: Normal range of motion NEUROLOGICAL: Normal speech, normal gait. PSYCH: Normal mood, normal affect. SKIN: Warm, Dry, normal turgor, no rashes or lesions noted. TRAVEL OUTSIDE OF THE [place] IN LAST 30 DAYS: No - Related Data Allergies/Adverse Reactions: Sulfa (Sulfonamide Antibiotics) Allergy (Severe, Verified 12/03/15 14:47) Past Medical History - Past Medical History Cardiac Medical History: Reports: Hx Atrial Fibrillation, Hx Congestive Heart Failure, Hx Coronary Artery Disease, Hx Heart Attack, Hx Hypercholesterolemia, Hx Hypertension Pulmonary Medical History: Reports: Hx Sleep Apnea Denies: Hx Tuberculosis Endocrine Medical History: Reports: Hx Diabetes Mellitus Type 2 Renal/ Medical History: Denies: Hx Peritoneal Dialysis Psychiatric Medical History: Reports: Hx Depression Past Surgical History: Reports: Hx Abdominal Surgery - fistula in abdomen, Hx Appendectomy, Hx Cardiac Catheterization, Hx Cardiac Surgery - triple bypass, stent, Hx Cholecystectomy, Hx Coronary Artery Bypass Graft - Triple-vessel, Hx Hysterectomy, Hx Tonsillectomy, Other - Abdominal wall vesicular fistula repair - Immunizations Immunizations up to date: Yes Hx Diphtheria, Pertussis, Tetanus Vaccination: Yes Physical Exam - Vital signs Vitals: Temp Pulse Resp BP Pulse Ox 97.5 F 74 20 115/67 97 01/31/17 16:12 01/31/17 16:12 01/31/17 16:12 01/31/17 16:12 01/31/17 16:12 Course - Vital Signs Vital signs: Temp Pulse Resp BP Pulse Ox 97.5 F 74 20 115/67 97 01/31/17 16:12 01/31/17 16:12 01/31/17 16:12 01/31/17 16:12 01/31/17 16:12 - Laboratory Laboratory results interpreted by me: 01/31/17 16:19 POC Glucose 229 H
--- NOTE | 2017-01-31 17:59 | EKG REPORT ---
SEVERITY:- ABNORMAL ECG - SINUS RHYTHM LVH WITH SECONDARY REPOLARIZATION ABNORMALITY : Confirmed by: Juan Luis Hamlin MD 31-Jan-2017 17:58:02
[2017-01-31 18:11] LABS: ABSOLUTE BASOPHILS # (AUTO) 0.1 10^3/uL (0.0-0.2); ABSOLUTE EOSINOPHILS # (AUTO) 0.2 10^3/uL (0.0-0.6); ABSOLUTE LYMPHOCYTES (AUTO) 2.7 10^3/uL (0.5-4.7); ABSOLUTE NEUT (AUTO) 8.9 10^3/uL (1.7-8.2); BASOPHILS % (AUTO) 0.5 % (0-2); EOSINOPHILS % (AUTO) 1.9 % (0-6); HEMATOCRIT 40.2 % (36.0-47.0); HEMOGLOBIN 13.1 g/dL (12.0-15.5); HGB HCT DIFFERENCE -0.9; MEAN CORPUSCULAR HEMOGLOBIN 27.9 pg (27.0-33.4); MEAN CORPUSCULAR HGB CONC 32.7 g/dL (32.0-36.0); MEAN CORPUSCULAR VOLUME 85 fl (80-97); MONOCYTES % (AUTO) 7.4 % (3-13); RED CELL DISTRIBUTION WIDTH 14.9 % (11.5-14.0); SEGMENTED NEUTROPHILS % (AUTO) 69.2 % (42-78); WHITE BLOOD COUNT 12.9 10^3/uL (4.0-10.5)
[2017-01-31 18:21] LABS: PROTHROMBIN TIME 12.6 SEC (11.4-15.4)
[2017-01-31 18:27] LABS: ALANINE AMINOTRANSFERASE 37 U/L (9-52); ALBUMIN 3.7 g/dL (3.5-5.0); ALKALINE PHOSPHATASE 167 U/L (38-126); ANION GAP 11 (5-19); ASPARTATE AMINO TRANSFERASE 22 U/L (14-36); BILIRUBIN,DIRECT 0.3 mg/dL (0.0-0.4); BILIRUBIN,TOTAL 0.5 mg/dL (0.2-1.3); BLOOD UREA NITROGEN 19 mg/dL (7-20); CALCIUM 10.7 mg/dL (8.4-10.2); CARBON DIOXIDE 25 mmol/L (22-30); CHLORIDE 103 mmol/L (98-107); CREATINE KINASE < 20 U/L (30-135); CREATININE RESULT 1.06 mg/dL (0.52-1.25); GLUCOSE 227 mg/dL (75-110); SODIUM 139.4 mmol/L (137-145); TOTAL PROTEIN 7.4 g/dL (6.3-8.2)
[2017-01-31 18:39] LABS: CREATINE KINASE MB 0.28 ng/mL (<4.55)
[2017-01-31 18:40] LABS: TROPONIN I < 0.012 ng/mL
--- NOTE | 2017-01-31 19:11 | ER Document Report ---
ED Blood Sugar Problem - General Mode of Arrival: Wheelchair Information source: Patient TRAVEL OUTSIDE OF THE [place] IN LAST 30 DAYS: No <KYM VAZQUEZ - Last Filed: 01/31/17 19:26> <DAYANA DREW - Last Filed: 01/31/17 23:47> - General Chief Complaint: High Blood Sugar Stated Complaint: SUGAR PROBLEMS Time Seen by Provider: 01/31/17 16:35 Notes: Patient is a 71 year old female with a history of DM 2 presents to the ED via EMS with complaints of "feeling weird". Patient claims she believed her sugar was low and self-administered a glucose tab. Per EMS patients blood sugar was 214. No other concerns or complaints at this time. (KYM VAZQUEZ) - Related Data Allergies/Adverse Reactions: Sulfa (Sulfonamide Antibiotics) Allergy (Severe, Verified 12/03/15 14:47) Home Medications: Current Home Medications Atorvastatin Calcium [Atorvastatin Calcium] 01/31/17 [History] Bupropion HCl [Bupropion Xl] 01/31/17 [History] Clopidogrel Bisulfate [Clopidogrel] 01/31/17 [History] Clotrimazole [Clotrimazole] 01/31/17 [History] Insulin Regular, Human [Novolin R] 01/31/17 [History] Isosorbide Mononitrate [Isosorbide Mononitrate ER] 01/31/17 [History] Levothyroxine Sodium 01/31/17 [History] Metoprolol Tartrate [Metoprolol Tartrate] 01/31/17 [History] Nitrofurantoin Monohyd/M-Cryst [Nitrofurantoin [place]-Mcr 100 mg] 01/31/17 [ History] Nitroglycerin [Nitroglycerin] 01/31/17 [History] Past Medical History - General Information source: Patient - Social History Smoking Status: Unknown if Ever Smoked Family History: None Patient has suicidal ideation: No Patient has homicidal ideation: No - Past Medical History Cardiac Medical History: Reports: Hx Atrial Fibrillation, Hx Congestive Heart Failure, Hx Coronary Artery Disease, Hx Heart Attack, Hx Hypercholesterolemia, Hx Hypertension Pulmonary Medical History: Reports: Hx Sleep Apnea Denies: Hx Tuberculosis Endocrine Medical History: Reports: Hx Diabetes Mellitus Type 2 Renal/ Medical History: Denies: Hx Peritoneal Dialysis Psychiatric Medical History: Reports: Hx Depression Past Surgical History: Reports: Hx Abdominal Surgery - fistula in abdomen, Hx Appendectomy, Hx Cardiac Catheterization, Hx Cardiac Surgery - triple bypass, stent, Hx Cholecystectomy, Hx Coronary Artery Bypass Graft - Triple-vessel, Hx Hysterectomy, Hx Tonsillectomy, Other - Abdominal wall vesicular fistula repair - Immunizations Immunizations up to date: Yes Hx Diphtheria, Pertussis, Tetanus Vaccination: Yes Hx Pneumococcal Vaccination: 06/11/15 <TAYLORKYM - Last Filed: 01/31/17 19:26> Review of Systems - Review of Systems Constitutional: No symptoms reported EENT: No symptoms reported Cardiovascular: See HPI, Lightheaded, Other - hypoglycemia Respiratory: No symptoms reported Gastrointestinal: No symptoms reported Genitourinary: No symptoms reported Female Genitourinary: No symptoms reported Musculoskeletal: No symptoms reported Skin: No symptoms reported Hematologic/Lymphatic: No symptoms reported Neurological/Psychological: No symptoms reported <KYM VAZQUEZ - Last Filed: 01/31/17 19:26> Physical Exam - General General appearance: Appears well In distress: None - HEENT Head: Normocephalic, Atraumatic Eyes: Normal Extraocular movements intact: Yes Pupils: PERRL Mucous membranes: Dry - Respiratory Respiratory status: No respiratory distress - Cardiovascular Rhythm: Regular - Abdominal Inspection: Normal Distension: No distension Tenderness: Nontender - Back Back: Normal - Extremities General upper extremity: Normal inspection, Normal ROM General lower extremity: Normal inspection, Normal ROM - Neurological Neuro grossly intact: Yes Cognition: Normal Orientation: AAOx4 Kim Coma Scale Eye Opening: Spontaneous [place] Coma Scale Verbal: Oriented [place] Coma Scale Motor: Obeys Commands [place] Coma Scale Total: 15 Speech: Normal - Psychological Associated symptoms: Normal affect, Normal mood - Skin Skin Temperature: Warm Skin Moisture: Dry Skin Color: Normal <TAYLORKYM - Last Filed: 01/31/17 19:26> - Neurological Neuro grossly intact: Yes Cognition: Confused. No: Normal Orientation: Disoriented to time, Disoriented to events. No: AAOx4, Disoriented to person, Disoriented to place - Psychological Associated symptoms: Confused <DAYANA DREW - Last Filed: 01/31/17 23:47> - Vital signs Vitals: Temp Pulse Resp BP Pulse Ox 97.5 F 74 20 115/67 97 01/31/17 16:12 01/31/17 16:12 01/31/17 16:12 01/31/17 16:12 01/31/17 16:12 Course - Laboratory Result Diagrams: 01/31/17 17:50 01/31/17 17:50 <KYM VAZQUEZ - Last Filed: 01/31/17 19:26> - Laboratory Result Diagrams: 01/31/17 17:50 01/31/17 17:50 - Diagnostic Test Radiology reviewed: Reports reviewed <DAYANA DREW - Last Filed: 01/31/17 23:47> - Re-evaluation Re-evalutation: 01/31/17 Patient is a 71-year-old female who comes in for confusion for the last 3 days. Patient apparently recently stopped Macrobid for urinary tract infection. Patient also has been having some slurred speech. Patient's speech is not slurred but it is not as articulate as it should be. No focal neurologic deficits. Patient appears to have a urinary tract infection again. She will be started on Rocephin. Urine culture sent. Attempted to ambulate patient but she falls back into the bed. Orthostatics are normal. Patient will be referred to the hospitalist service for admission. Family agrees with this plan. (DAYANA DREW) - Vital Signs Vital signs: Temp Pulse Resp BP Pulse Ox 97.6 F 67 18 155/70 H 94 01/31/17 22:27 01/31/17 22:30 01/31/17 22:27 01/31/17 22:30 01/31/17 22:27 - Laboratory Laboratory results interpreted by me: 01/31/17 01/31/17 01/31/17 16:19 17:50 17:50 WBC 12.9 H RDW 14.9 H Absolute Neutrophils 8.9 H Est GFR (Non-Af Amer) 51 L Glucose 227 H POC Glucose 229 H Hemoglobin A1c % Calcium 10.7 H Alkaline Phosphatase 167 H Creatine Kinase < 20 L TSH Urine Protein Urine Glucose (UA) Urine Blood Urine Nitrite Ur Leukocyte Esterase 01/31/17 01/31/17 01/31/17 17:50 17:50 19:15 WBC RDW Absolute Neutrophils Est GFR (Non-Af Amer) Glucose POC Glucose Hemoglobin A1c % 10.0 H Calcium Alkaline Phosphatase Creatine Kinase TSH 5.35 H Urine Protein 30 H Urine Glucose (UA) >=500 H Urine Blood MODERATE H Urine Nitrite POSITIVE H Ur Leukocyte Esterase SMALL H Discharge <KYM VAZQUEZ - Last Filed: 01/31/17 19:26> - [facility] Unit Admitted: Medical Floor <DAYANA DREW - Last Filed: 01/31/17 23:47> - Discharge Clinical Impression: Encephalopathy UTI (urinary tract infection) Qualifiers: Urinary tract infection type: site unspecified Hematuria presence: with hematuria Qualified Code(s): N39.0 - Urinary tract infection, site not specified ; R31.9 - Hematuria, unspecified Condition: Stable Disposition: ADMITTED OBSERVATION Scribe Attestation: 01/31/17 23:47 I personally performed the services described in the documentation, reviewed and edited the documentation which was dictated to the scribe in my presence, and it accurately records my words and actions. (DAYANA DREW) Scribe Documentation - Scribe Written by Brian:: brian Andres, 01/31/2017, 1911 acting as scribe for :: Francia <KYM VAZQUEZ - Last Filed: 01/31/17 19:26>
--- NOTE | 2017-01-31 19:19 | RADIOLOGY REPORT (SQ) ---
EXAM DESCRIPTION: CHEST PA/LAT COMPLETED DATE/TIME: 01/31/2017 6:55 pm REASON FOR STUDY: altered COMPARISON: 12/03/2015 EXAM PARAMETERS: NUMBER OF VIEWS: two views TECHNIQUE: Digital Frontal and Lateral radiographic views of the chest acquired. RADIATION DOSE: NA LIMITATIONS: none FINDINGS: LUNGS AND PLEURA: No acute opacities, masses or pneumothorax. No pleural effusion. MEDIASTINUM AND HILAR STRUCTURES: Stable. Prior CABG. HEART AND VASCULAR STRUCTURES: Stable cardiomegaly. BONES: No acute findings. HARDWARE: CABG. OTHER: No other significant finding. IMPRESSION: No acute finding. TECHNICAL DOCUMENTATION: JOB ID: [id number] [email or web address]- All Rights Reserved
[2017-01-31] MEDS ORDERED: FLUCONAZOLE 200 MG/NS RTU 100 ML IV ONE (19:31)
[2017-01-31 19:42] LABS: AMORPHOUS SEDIMENT,URINE TRACE /HPF; APPEARANCE,URINE SLIGHTLY-CLOUDY; BILIRUBIN,URINE NEGATIVE (NEGATIVE); GLUCOSE, URINE >=500 mg/dL (NEGATIVE); KETONES,URINE NEGATIVE (NEGATIVE); LEUKOCYTE ESTERASE,URINE SMALL (NEGATIVE); NITRITE,URINE POSITIVE (NEGATIVE); PROTEIN,URINE 30 mg/dL (NEGATIVE); URINE SPECIFIC GRAVITY 1.022; UROBILINOGEN,URINE NEGATIVE mg/dL (<2.0)
[2017-01-31] MEDS ORDERED: CEFTRIAXONE 1 GM/D5W RTU 50 ML IV ONE (19:53)
[2017-01-31 21:10] LABS: VENOUS BLOOD BASE EXCESS -0.3 mmol/L; VENOUS BLOOD HCO3 25.4 mmol/L (20-32); VENOUS BLOOD PCO2 45.5 mmHg (35-63); VENOUS BLOOD PH 7.36 (7.30-7.42)
--- NOTE | 2017-01-31 21:21 | RADIOLOGY REPORT (SQ) ---
EXAM DESCRIPTION: CT LTD RENAL STONE PROTOCOL ON COMPLETED DATE/TIME: 01/31/2017 9:06 pm REASON FOR STUDY: POSSIBLE STONE COMPARISON: 12/03/2015 TECHNIQUE: CT scan of the abdomen and pelvis performed without intravenous or oral contrast. Images reviewed with lung, soft tissue, and bone windows. Reconstructed coronal and sagittal MPR images revi ewed. All images stored on PACS. All CT scanners at this facility use dose modulation, iterative reconstruction, and/or weight based d osing when appropriate to reduce radiation dose to as low as reasonably achievable (ALARA). [facility]: Dose Right [facility]: CareDose [facility]: Dose Right [facility]: Teradose 4D [facility]: Smart [employer] RADIATION DOSE: Up-to-date CT equipment and radiation dose reduction techniques were employed. CTDIv ol: 18.1 mGy. DLP: 905 mGy-cm.mGy. LIMITATIONS: None. FINDINGS: LOWER CHEST: No acute findings. Similar small basilar nodules. No pleural effusion. NON-CONTRASTED LIVER, SPLEEN, ADRENALS: Evaluation limited by lack of IV contrast. No identified sign ificant masses. PANCREAS: No masses. No peripancreatic inflammatory changes. GALLBLADDER: Surgically absent. RIGHT KIDNEY AND URETER: No suspicious masses. Assessment limited by lack of IV contrast. Similar p arenchymal calcifications. No hydronephrosis or hydroureter. LEFT KIDNEY AND URETER: No suspicious masses. Assessment limited by lack of IV contrast. Similar pa renchymal calcifications. No hydronephrosis or hydroureter. AORTA AND RETROPERITONEUM: No aneurysm. No retroperitoneal masses or adenopathy. BOWEL AND PERITONEAL CAVITY: No obvious masses or inflammatory changes. No free fluid. APPENDIX: Not visualized. PELVIS, BLADDER, AND ABDOMINAL WALL:Similar ventral hernia. Prior hysterectomy. No free fluid. Bladd er normal. BONES: No significant findings. OTHER: No other significant finding. IMPRESSION: NO ACUTE PROCESS IN THE ABDOMEN OR PELVIS. TECHNICAL DOCUMENTATION: JOB ID: [id number] Quality ID # [id number]: Final reports with documentation of one or more dose reduction techniques (e.g., Au tomated exposure control, adjustment of the mA and/or kV according to patient size, use of iterative reconstruction technique) 2010 [employer]- All Rights Reserved
[2017-01-31] MEDS ORDERED: ACETAMINOPHEN 325 MG TABLET PO PRN (22:26)
[2017-01-31] MEDS ORDERED: ONDANSETRON HCL INJ/PF 4 MG/2 ML SDV IV PRN (22:26)
[2017-01-31] MEDS ORDERED: DEXTROSE 40% GEL 15 GM TUBE PO PRN ×2 (22:31)
[2017-01-31] MEDS ORDERED: GLUCAGON,HUMAN RECOMB 1 MG INJ IM PRN (22:31)
[2017-01-31] MEDS ORDERED: DEXTROSE 50%-WATER 25 GM/50 ML DISP.SYRIN IV PRN ×2 (22:31)
[2017-02-01 00:07] LABS: URINE BARBITURATES SCREEN NEGATIVE; URINE METHADONE SCREEN NEGATIVE; URINE OPIATES LOW NEGATIVE; URINE PHENCYCLIDINE SCREEN NEGATIVE
--- NOTE | 2017-02-01 01:01 | PDOC H&P ---
History of Present Illness Admission Date/PCP: 01/31/17 22:27 Patient complains of: Altered mental status History of Present Illness: KEVIN INFANTE is a 71 year old female with a past medical history of poorly controlled insulin dependent diabetes, coronary artery disease, hypothyroidism, obesity and generalized debility. She has been her usual state of health until approximately 4 hours prior to presentation with altered mental status, polyuria and confusion prompting evaluation emergency room. She is found to be delirious with evidence of urinary tract infection and inability to walk denying pain or shortness of breath she is referred to the hospital for observation. Past Medical History Cardiac Medical History: Reports: Atrial Fibrillation, Congestive Heart Failure , Coronary Artery Disease, Myocardial Infarction, Hyperlipidema, Hypertension Pulmonary Medical History: Reports: Sleep Apnea Denies: Tuberculosis Endocrine Medical History: Reports: Diabetes Mellitus Type 2, Hypothyroidism, Obesity Psychiatric Medical History: Reports: Depression Past Surgical History Past Surgical History: Reports: Appendectomy, Cardiac Catheterization, Cholecystectomy, Coronary Artery Bypass Graft - Triple-vessel, Hysterectomy, Tonsillectomy, Other - Abdominal wall vesicular fistula repair Social History Information Source: Patient, [facility] Records Lives with: Family Smoking Status: Unknown if Ever Smoked Frequency of Alcohol Use: None Hx Recreational Drug Use: No Drugs: None Hx Prescription Drug Abuse: No - Advance Directive Resuscitation Status: Full Code Family History Family History: DM, Hypertension Parental Family History Reviewed: Yes Children Family History Reviewed: Yes Sibling(s) Family History Reviewed.: Yes Medication/Allergy Home Medications: NPH, Human Insulin Isophane [Novolin N (NPH) Insulin 100 unit/mL] 90 unit SUBCUT BIDACBS 10/02/16 Atorvastatin Calcium [Atorvastatin Calcium] 01/31/17 Bupropion HCl [Bupropion Xl] 01/31/17 Clopidogrel Bisulfate [Clopidogrel] 01/31/17 Clotrimazole [Clotrimazole] 01/31/17 Insulin Regular, Human [Novolin R] 01/31/17 Isosorbide Mononitrate [Isosorbide Mononitrate ER] 01/31/17 Levothyroxine Sodium 01/31/17 Metoprolol Tartrate [Metoprolol Tartrate] 01/31/17 Nitrofurantoin Monohyd/M-Cryst [Nitrofurantoin [place]-Mcr 100 mg] 01/31/17 Nitroglycerin [Nitroglycerin] 01/31/17 Allergies/Adverse Reactions: Sulfa (Sulfonamide Antibiotics) Allergy (Severe, Verified 12/03/15 14:47) Review of Systems ROS unobtainable: Due to mental status Physical Exam Vital Signs: Temp Pulse Resp BP Pulse Ox 97.6 F 67 18 155/70 H 94 01/31/17 22:27 01/31/17 22:30 01/31/17 22:27 01/31/17 22:30 01/31/17 22:27 General appearance: PRESENT: no acute distress, disheveled, morbidly obese Head exam: PRESENT: atraumatic, normocephalic Eye exam: PRESENT: conjunctiva pink, EOMI, PERRLA. ABSENT: scleral icterus Ear exam: PRESENT: normal external ear exam Mouth exam: PRESENT: moist, tongue midline Neck exam: ABSENT: carotid bruit, JVD, lymphadenopathy, thyromegaly Respiratory exam: PRESENT: clear to auscultation chadd. ABSENT: rales, rhonchi, wheezes Cardiovascular exam: PRESENT: RRR. ABSENT: diastolic murmur, rubs, systolic murmur Pulses: PRESENT: normal dorsalis pedis pul GI/Abdominal exam: PRESENT: normal bowel sounds, soft. ABSENT: distended, guarding, mass, organolmegaly, rebound, tenderness Rectal exam: PRESENT: deferred Extremities exam: PRESENT: full ROM. ABSENT: calf tenderness, clubbing, pedal edema Neurological exam: PRESENT: alert, altered, awake, oriented to person, oriented to place, oriented to situation, CN II-XII grossly intact. ABSENT: motor sensory deficit, normal gait Psychiatric exam: PRESENT: unusual affect Skin exam: PRESENT: dry, intact, warm. ABSENT: cyanosis, rash Results Impressions: Chest X-Ray 01/31/17 16:47 IMPRESSION: No acute finding. Limited or Localized CT 01/31/17 20:15 IMPRESSION: NO ACUTE PROCESS IN THE ABDOMEN OR PELVIS. Assessment & Plan - Diagnosis (1) Hypothyroidism Qualifiers: Hypothyroidism type: unspecified Qualified Code(s): E03.9 - Hypothyroidism, unspecified Is this a current diagnosis for this admission?: YesPlan: Obtain TSH investigate compliance with medication and time of administration of Synthroid (2) UTI (urinary tract infection) Qualifiers: Urinary tract infection type: site unspecified Hematuria presence: with hematuria Qualified Code(s): N39.0 - Urinary tract infection, site not specified Is this a current diagnosis for this admission?: YesPlan: Follow-up CBC and urine culture empiric treatment with Rocephin and fluconazole (3) Encephalopathy Is this a current diagnosis for this admission?: YesPlan: Patient is confused and delirious secondary to acute illness, fall precautions initiated follow-up with family for baseline (4) Ambulatory dysfunction Is this a current diagnosis for this admission?: YesPlan: Complicated by generalized debility, obesity. She is at high risk for fall obtain physical therapy consult (5) Obstructive sleep apnea Plan: CPAP at night (6) Diabetes mellitus type 2 in obese Is this a current diagnosis for this admission?: YesPlan: Until clear compliance. Obtain A1c home medication regimen with sliding scale insulin and education. - Time Time Spent: 30 to 50 Minutes
--- NOTE | 2017-02-01 04:59 | Physician Advisory Note ---
Physician Advisor ProgressNote .: Pursuant to the plan for [facility], I have reviewed the medical record for this patient. Physician Advisor Statement: Excellent documentation of morbid obesity (BMI 40), DM-2, DOLORES, & reasons needing Obs care. Please consider documentin. "chronic diastolic CHF" (per ECHO 09/21 = nl EF, mild conc LVH, gr 2/4 diast dysfn) 2. "persistent Afib" vs "paroxysmal Afib" (need to specify type) 3. "Acute metabolic encephalopathy, likely due to UTI" 4. Medical necessity for needing 2nd night of care - see under "Status" below. 5. ?Dehydration? 6. Principal Dx requiring adm needs to be first dx listed in each note. Status: appropriate for Outpt Obs status initially, ordered 7 PM. If she is not sufficiently improved later on 02/01 for d/c, please document clinical reasons/concerns, & may be appropriate to change to Inpt status then. Discussion: 71yo Medicare pt with DM-2 (with consistent A1Cs >10 per previous H &P), past hospital stays for UTI w/Klebsiella & E.coli sensitive to Rocephin, CAD w/past NV/3v CABG/ stent, HTN, HLD, chr diast CHF, __ type Afib, DOLORES, obesity, debility, hypothyroidism, depression - in w/AMS/disorientation to time/ events/person/place per ED dr, speech less articulate than nl per ED dr, polyuria, UTI, hyperglycemia, unable to walk, dry mucosae, AFeb/VSS but WBC 12.9, glc 227, Ca 10.7, AP 167, TSH 5.35, U/A (+) w/lg glc/mod bld. ED gave IV ROcephin & Diflucan. Attending has ordered Diflucan po, indicates plan to continue Rocephin IV. Other orders: I/Os, daily wts, falls prec.s, ur cx, BC, f/u labs, PT eval. So far, no IVF. Thanks for your help! ALLIE
[2017-02-01] MEDS: HEPARIN SOD (PORCINE) 5,000 UNIT/ML 1 ML SYRINGE SUBCUT SCH ×3 (06:55→22:00)
[2017-02-01 07:02] LABS: ABSOLUTE BASOPHILS # (AUTO) 0.1 10^3/uL (0.0-0.2); ABSOLUTE EOSINOPHILS # (AUTO) 0.4 10^3/uL (0.0-0.6); ABSOLUTE MONOCYTES (AUTO) 0.9 10^3/uL (0.1-1.4); ABSOLUTE NEUT (AUTO) 8.4 10^3/uL (1.7-8.2); BASOPHILS % (AUTO) 0.6 % (0-2); EOSINOPHILS % (AUTO) 3.4 % (0-6); HEMATOCRIT 39.1 % (36.0-47.0); HEMOGLOBIN 12.9 g/dL (12.0-15.5); HGB HCT DIFFERENCE -0.4; LYMPHOCYTES % (AUTO) 23.3 % (13-45); MEAN CORPUSCULAR HEMOGLOBIN 28.5 pg (27.0-33.4); MEAN CORPUSCULAR HGB CONC 32.9 g/dL (32.0-36.0); MEAN CORPUSCULAR VOLUME 87 fl (80-97); MONOCYTES % (AUTO) 6.9 % (3-13); RED BLOOD COUNT 4.52 10^6/uL (3.72-5.28); RED CELL DISTRIBUTION WIDTH 15.2 % (11.5-14.0); SEGMENTED NEUTROPHILS % (AUTO) 65.8 % (42-78); WHITE BLOOD COUNT 12.8 10^3/uL (4.0-10.5)
[2017-02-01 07:21] LABS: ANION GAP 10 (5-19); BLOOD UREA NITROGEN 19 mg/dL (7-20); CALCIUM 9.6 mg/dL (8.4-10.2); CARBON DIOXIDE 22 mmol/L (22-30); CHLORIDE 104 mmol/L (98-107); CREATININE RESULT 0.87 mg/dL (0.52-1.25); GLUCOSE 301 mg/dL (75-110); SODIUM 136.3 mmol/L (137-145)
[2017-02-01] MEDS: INSULIN LISPRO 100 UNIT/ML 3 ML VIAL SUBCUT PRN ×4 (08:26→22:00)
[2017-02-01] MEDS: INSULIN NPH (ISOPHANE), HUMAN 100 UNIT/ML 3 ML SUBCUT SCH ×2 (08:27→16:31)
[2017-02-01] MEDS: DOCUSATE SODIUM 100 MG CAPSULE PO SCH ×2 (09:33→17:49)
[2017-02-01] MEDS: FLUCONAZOLE 100 MG TABLET PO SCH (09:33)
[2017-02-01] MEDS ORDERED: ACETAMINOPHEN 325 MG TABLET PO PRN (14:25)
[2017-02-01] MEDS ORDERED: ONDANSETRON HCL INJ/PF 4 MG/2 ML SDV IV PRN (14:28)
--- NOTE | 2017-02-01 16:15 | PDOC PROGRESS REPORT ---
Subjective Progress Note for:: 02/01/17 Subjective:: Patient is less confused this morning Physical Exam Vital Signs: Temp Pulse Resp BP Pulse Ox 97.9 F 80 18 127/63 H 96 02/01/17 12:33 02/01/17 12:33 02/01/17 12:33 02/01/17 13:57 02/01/17 12:33 Intake & Output 01/31/17 02/01/17 02/02/17 06:59 06:59 06:59 Weight 95.9 kg General appearance: PRESENT: no acute distress Eye exam: PRESENT: conjunctiva pink. ABSENT: scleral icterus Ear exam: PRESENT: normal external ear exam Mouth exam: PRESENT: moist, tongue midline Neck exam: ABSENT: JVD Respiratory exam: PRESENT: clear to auscultation chadd. ABSENT: rales, rhonchi, wheezes Cardiovascular exam: PRESENT: RRR. ABSENT: diastolic murmur, rubs, systolic murmur GI/Abdominal exam: PRESENT: normal bowel sounds, soft. ABSENT: distended, guarding, mass, organolmegaly, rebound, tenderness Extremities exam: ABSENT: calf tenderness, clubbing, pedal edema Neurological exam: PRESENT: alert, awake, oriented to person, oriented to place , oriented to time, oriented to situation, CN II-XII grossly intact. ABSENT: motor sensory deficit Psychiatric exam: PRESENT: appropriate affect Skin exam: PRESENT: dry, intact, warm. ABSENT: cyanosis, rash Results Laboratory Results: 02/01/17 06:33 02/01/17 06:33 02/01/17 02/01/17 06:33 06:33 WBC 12.8 H RBC 4.52 Hgb 12.9 Hct 39.1 MCV 87 MCH 28.5 MCHC 32.9 RDW 15.2 H Plt Count 342 Seg Neutrophils % 65.8 Lymphocytes % 23.3 Monocytes % 6.9 Eosinophils % 3.4 Basophils % 0.6 Absolute Neutrophils 8.4 H Absolute Lymphocytes 3.0 Absolute Monocytes 0.9 Absolute Eosinophils 0.4 Absolute Basophils 0.1 Sodium 136.3 L Potassium 4.0 Chloride 104 Carbon Dioxide 22 Anion Gap 10 BUN 19 Creatinine 0.87 Est GFR ( Amer) > 60 Est GFR (Non-Af Amer) > 60 Glucose 301 H Calcium 9.6 Impressions: Chest X-Ray 01/31/17 16:47 IMPRESSION: No acute finding. Limited or Localized CT 01/31/17 20:15 IMPRESSION: NO ACUTE PROCESS IN THE ABDOMEN OR PELVIS. Assessment & Plan - Diagnosis (1) Encephalopathy Is this a current diagnosis for this admission?: YesPlan: The patient had acute metabolic encephalopathy secondary to a urinary tract infection. Patient has had improvement in her mental status although the daughter is concerned and would like for us to watch her 1 more night before sending her home (2) UTI (urinary tract infection) Qualifiers: Urinary tract infection type: site unspecified Hematuria presence: with hematuria Qualified Code(s): N39.0 - Urinary tract infection, site not specified Is this a current diagnosis for this admission?: YesPlan: Patient is growing gram-negative rods from urine. We will continue with the Rocephin. (3) Coronary artery disease Qualifiers: Coronary Disease-Associated Artery/Lesion type: [place] artery [place] vs. transplanted heart: [place] heart Associated angina: without angina Qualified Code(s): I25.10 - Atherosclerotic heart disease of [place] coronary artery without angina pectoris Is this a current diagnosis for this admission?: YesPlan: Denies any chest pain. (4) Hypothyroidism Qualifiers: Hypothyroidism type: unspecified Qualified Code(s): E03.9 - Hypothyroidism, unspecified Is this a current diagnosis for this admission?: Yes (5) Obstructive sleep apnea Is this a current diagnosis for this admission?: Yes (6) Diabetes mellitus type 2 in obese Is this a current diagnosis for this admission?: YesPlan: Continue with sliding scale insulin. - Time Time Spent with patient: 25-34 minutes - Plan Summary Plan Summary: If the patient does not have any confusion overnight she can be discharged home in the morning. She has had frequent admissions for UTI with encephalopathy. She may benefit from seeing a urologist as an outpatient.
[2017-02-01] MEDS ORDERED: CEFTRIAXONE 1 GM/D5W RTU 1 GM/50 ML RTUPB IV SCH (18:00)
[2017-02-02] MEDS: HEPARIN SOD (PORCINE) 5,000 UNIT/ML 1 ML SYRINGE SUBCUT SCH (05:32)
[2017-02-02 06:56] LABS: ANION GAP 9 (5-19); BLOOD UREA NITROGEN 15 mg/dL (7-20); CALCIUM 9.5 mg/dL (8.4-10.2); CARBON DIOXIDE 23 mmol/L (22-30); CHLORIDE 106 mmol/L (98-107); CREATININE RESULT 0.77 mg/dL (0.52-1.25); GLUCOSE 174 mg/dL (75-110); POTASSIUM 3.5 mmol/L (3.6-5.0)
[2017-02-02] MEDS: INSULIN NPH (ISOPHANE), HUMAN 100 UNIT/ML 3 ML SUBCUT SCH (09:11)
[2017-02-02] MEDS: FLUCONAZOLE 100 MG TABLET PO SCH (09:11)
[2017-02-02] MEDS: DOCUSATE SODIUM 100 MG CAPSULE PO SCH (09:11)
--- NOTE | 2017-02-02 09:31 | Physician Advisory Note ---
Physician Advisor ProgressNote .: Pursuant to the plan for [facility], I have reviewed the medical record for this patient. Physician Advisor Statement: Addendum r.e. medical necessity/status - Please document: 1. Did the persistent leukocytosis on 02/01 concern attending? If so, reasonable to make Inpt. 2. Was pt's mental status not yet back to baseline on 02/01? If so, reasonable to make Inpt. - What caused daughter to still be concerned about pt on 02/01 - was it something clinical? Discussion: Pt with persistent leukocytosis on 02/01, as well as persistent hyponatremia, & developed mild hypokalemia. Attending continued IV Rocephin, awaiting cx results, & ordered f/u labs. In this setting, there is risk that UTI not sufficiently covered w/current abx, given the continued leukocytosis, with risk for acute relapse/worsening again if not monitored for another night. Pt's encephalopathy was called "improved", but not yet documented resolved. Thanks! CK
[2017-02-02] MEDS ORDERED: POTASSIUM CHLORIDE 10 MEQ TABLET.SA PO ONE (11:48)
--- NOTE | 2017-02-02 12:10 | PDOC DISCHARGE SUMMARY ---
General - Admit/Disc Date/PCP Admission Date/Primary Care Provider: 01/31/17 22:27 Discharge Date: 02/02/17 - Discharge Diagnosis (1) Encephalopathy Is this a current diagnosis for this admission?: Yes (2) UTI (urinary tract infection) Is this a current diagnosis for this admission?: Yes (3) Ambulatory dysfunction Is this a current diagnosis for this admission?: Yes (4) Coronary artery disease Is this a current diagnosis for this admission?: Yes (5) Hypothyroidism Is this a current diagnosis for this admission?: Yes (6) Obstructive sleep apnea Is this a current diagnosis for this admission?: Yes (7) Diabetes mellitus type 2 in obese Is this a current diagnosis for this admission?: Yes - Additional Information Resuscitation Status: Full Code Discharge Diet: Cardiac - Low-fat low-salt, Diabetic - No concentrated sweets Discharge Activity: Activity As Tolerated, Balance Activity w/Rest Home Medications: Aspirin [Ecotrin 81 mg EC Tablet] 81 mg PO DAILY 02/01/17 Atorvastatin Calcium [Lipitor 80 mg Tablet] 80 mg PO QHS 02/01/17 Bupropion HCl [Wellbutrin Xl 300mg 24hr Tablet] 300 mg PO DAILY 02/01/17 Clopidogrel Bisulfate [Plavix 75 mg Tablet] 75 mg PO DAILY 02/01/17 Insulin Regular, Human [Novolin R (Reg) Insulin 100 unit/mL] 0 units SQ .SLDING SCALE 02/01/17 Insulin Regular, Human [Novolin R (Reg) Insulin 100 unit/mL] 20 units SQ MEALS 02/01/17 Isosorbide Mononitrate [Isosorbide Mononitrate ER] 30 mg PO QAM 02/01/17 Levothyroxine Sodium [Synthroid 0.075 mg Tablet] 0.075 mg PO DAILY 02/01/17 Metoprolol Succinate [Toprol XL 100 mg Tablet] 100 mg PO DAILY 02/01/17 NPH, Human Insulin Isophane [Novolin N (NPH) Insulin 100 unit/mL] 90 units SQ BID 02/01/17 Nitroglycerin [Nitrostat] 0.4 mg SL Q5MP PRN 02/01/17 Valsartan [Diovan 160 mg Tablet] 160 mg PO DAILY 02/01/17 Ciprofloxacin HCl [Cipro 500 mg Tablet] 500 mg PO BID 6 Days 02/02/17 History of Present Illness Patient complains of: Altered mental status History of Present Illness: KEVIN INFANTE is a 71 year old female with a past medical history of poorly controlled insulin dependent diabetes, coronary artery disease, hypothyroidism, obesity and generalized debility. She has been her usual state of health until approximately 4 hours prior to presentation with altered mental status, polyuria and confusion prompting evaluation emergency room. She is found to be delirious with evidence of urinary tract infection and inability to walk denying pain or shortness of breath she is referred to the hospital for observation. For details please refer to history and physical examination performed by the admitting physician. Hospital Course Hospital Course: The patient was admitted to telemetry. The patient was found to have urinary tract infection and was started on ceftriaxone. Gentle IV hydration was started as well. Patient's mental status significantly improved the following morning. Urine culture eventually grew Enterobacter sensitive to ceftriaxone. Patient was begun on diet and tolerated it well. The rest of the hospital stays unremarkable. Other workups include a chest x-ray showing no acute infiltrate and a Abd/pelvis CT scan showing no acute abnormality. Physical Exam Vital Signs: Temp Pulse Resp BP Pulse Ox 98.3 F 92 19 144/71 H 100 02/02/17 08:46 02/02/17 08:46 02/02/17 08:46 02/02/17 08:46 02/02/17 08:46 Intake & Output 02/01/17 02/02/17 02/03/17 06:59 06:59 06:59 Intake Total 2260 Output Total 950 Balance 1310 Weight 95.9 kg 95.9 kg General appearance: PRESENT: no acute distress, cooperative, obese Head exam: PRESENT: normocephalic Eye exam: PRESENT: EOMI Mouth exam: PRESENT: moist, neck supple Neck exam: ABSENT: JVD Respiratory exam: PRESENT: clear to auscultation chadd. ABSENT: rhonchi, wheezes Cardiovascular exam: PRESENT: RRR. ABSENT: gallop GI/Abdominal exam: PRESENT: normal bowel sounds, soft. ABSENT: tenderness Neurological exam: PRESENT: alert, awake, oriented to situation Skin exam: PRESENT: dry, warm. ABSENT: cyanosis Results Laboratory Results: 02/01/17 06:33 02/02/17 06:07 02/02/17 06:07 Sodium 138.0 Potassium 3.5 L Chloride 106 Carbon Dioxide 23 Anion Gap 9 BUN 15 Creatinine 0.77 Est GFR ( Amer) > 60 Est GFR (Non-Af Amer) > 60 Glucose 174 H Calcium 9.5 Impressions: Chest X-Ray 01/31/17 16:47 IMPRESSION: No acute finding. Limited or Localized CT 01/31/17 20:15 IMPRESSION: NO ACUTE PROCESS IN THE ABDOMEN OR PELVIS. Qualifiers PATEINT BEING DISCHARGED WITH ANY OF THE FOLLOWING DIAGNOSIS?: No Plan Discharge Plan: Follow-up with primary care physician in 1 week. Time Spent: Less than 30 Minutes
[2017-02-02] MEDS: INSULIN LISPRO 100 UNIT/ML 3 ML VIAL SUBCUT PRN (12:13)
[2017-02-02 12:33] VITALS: BP 152/62
== END 2017-02-02 14:15 | disposition home health service (06) ==
LOC: ER 16:04 → EH 22:27 → UNDOADMOB 22:33 → 5 02-01 00:40
PROVIDERS: ADMIT Internal Medicine; ATTEND Internal Medicine
DX: N39.0 Urinary tract infection, site not specified (principal); R31.9 Hematuria, unspecified; B96.89 Other specified bacterial agents as the cause of diseases classified elsewhere; G93.41 Metabolic encephalopathy; R26.89 Other abnormalities of gait and mobility; I25.10 Atherosclerotic heart disease of native coronary artery without angina pectoris; E03.9 Hypothyroidism, unspecified; G47.33 Obstructive sleep apnea (adult) (pediatric); E11.9 Type 2 diabetes mellitus without complications; E66.9 Obesity, unspecified; R53.81 Other malaise; I48.91 Unspecified atrial fibrillation; I11.0 Hypertensive heart disease with heart failure; I50.9 Heart failure, unspecified; I25.2 Old myocardial infarction; Z79.82 Long term (current) use of aspirin; Z79.02 Long term (current) use of antithrombotics/antiplatelets; Z79.4 Long term (current) use of insulin; Z90.49 Acquired absence of other specified parts of digestive tract; Z95.1 Presence of aortocoronary bypass graft; Z90.710 Acquired absence of both cervix and uterus; Z87.440 Personal history of urinary (tract) infections
CPT/HCPCS: 93005; 99285; 96365; 96367; 36415 ×3; 87040; 87086; 82553; 82962 ×3; 82550; 83735; 84443; 85025 ×2; 85610; 87088; 80048 ×2; 80053; 81001; 84484; 87186; 80307; 83036; 82803; 83605; 71020; 76380; 93010; 97163; J1644 ×2; A9270 ×10; J1450; J0696 ×2; G8978; G8979; G8980; G0378; J1815

== ENCOUNTER 2017-06-20 01:59 | Emergency (ER) | payer MEDICARE, BC ==
--- NOTE | 2017-06-20 03:17 | ER Document Report ---
ED GI/ - General Mode of Arrival: Ambulatory Information source: Patient, Relative TRAVEL OUTSIDE OF THE [place] IN LAST 30 DAYS: No <CRISTAL WATT - Last Filed: 06/20/17 04:57> <SILVIA TOBIAS - Last Filed: 06/20/17 07:22> - General Chief Complaint: Flank Pain Stated Complaint: FLANK PAIN Time Seen by Provider: 06/20/17 03:03 Notes: Patient is a 71 year old female with a history of kidney stones presents to the emergency department accompanied by daughter in law complaining of right flank pain onset at 23:15 on 06/19/2017. Patient states that her symptoms are similar to the symptoms of her previous kidney stones. Patient states that the pain moves and is intermittent. Patients associated symptoms include dark urine which has a smell of "hard boiled eggs", increased incontinence, and abdominal pain. Patient denies any burning urination, hematuria, chest pain, difficulty breathing, sore throat, or earaches. Patient daughter in law states that she not have the normal symptoms of UTIs. (CRISTAL WATT) - Related Data Allergies/Adverse Reactions: Sulfa (Sulfonamide Antibiotics) Allergy (Severe, Verified 12/03/15 14:47) Past Medical History - General Information source: Patient, Relative - Social History Smoking Status: Unknown if Ever Smoked Family History: DM, Hypertension - Past Medical History Cardiac Medical History: Reports: Hx Atrial Fibrillation, Hx Congestive Heart Failure, Hx Coronary Artery Disease, Hx Heart Attack, Hx Hypercholesterolemia, Hx Hypertension Pulmonary Medical History: Reports: Hx Sleep Apnea Endocrine Medical History: Reports: Hx Diabetes Mellitus Type 2, Hx Hypothyroidism Psychiatric Medical History: Reports: Hx Depression Past Surgical History: Reports: Hx Abdominal Surgery - fistula in abdomen, Hx Appendectomy, Hx Cardiac Catheterization, Hx Cardiac Surgery - triple bypass, stent, Hx Cholecystectomy, Hx Coronary Artery Bypass Graft - Triple-vessel, Hx Hysterectomy, Hx Tonsillectomy, Other - Abdominal wall vesicular fistula repair - Immunizations Immunizations up to date: Yes Hx Diphtheria, Pertussis, Tetanus Vaccination: Yes Hx Pneumococcal Vaccination: 06/11/15 <CRISTAL WATT - Last Filed: 06/20/17 04:57> Review of Systems - Review of Systems Constitutional: No symptoms reported EENT: No symptoms reported Cardiovascular: No symptoms reported Respiratory: No symptoms reported Gastrointestinal: See HPI, Abdominal pain Genitourinary: See HPI, Burning, Incontinence, Other - Dark, foul smelling urine. Female Genitourinary: No symptoms reported Musculoskeletal: No symptoms reported Skin: No symptoms reported Hematologic/Lymphatic: No symptoms reported Neurological/Psychological: No symptoms reported -: Yes All other systems reviewed and negative <SHUKRICRISTAL ROCHA - Last Filed: 06/20/17 04:57> Physical Exam <SHUKRIROBBINTEE - Last Filed: 06/20/17 04:57> <SILVIA TOBIAS - Last Filed: 06/20/17 07:22> - Vital signs Vitals: Temp Pulse Resp BP Pulse Ox 97.7 F 102 H 18 168/87 H 96 06/20/17 02:04 06/20/17 02:04 06/20/17 02:04 06/20/17 02:04 06/20/17 02:04 - Notes Notes: GENERAL: Alert, interacts well. No acute distress. HEAD: Normocephalic, atraumatic. EYES: Pupils equal, round, and reactive to light. Extraocular movements intact. ENT: Oral mucosa moist, tongue midline. \\ NECK: Full range of motion. Supple. Trachea midline. LUNGS: Clear to auscultation bilaterally, no wheezes, rales, or rhonchi. No respiratory distress. HEART: Regular rate and rhythm. No murmurs, gallops, or rubs. ABDOMEN: Soft, diffuse tenderness to palpation. Non-distended. Bowel sounds present in all 4 quadrants. EXTREMITIES: Moves all 4 extremities spontaneously. No edema, radial and dorsalis pedis pulses 2/4 bilaterally. No cyanosis. NEUROLOGICAL: Alert and oriented x3. Normal speech. PSYCH: Normal affect, normal mood. SKIN: Warm, dry, normal turgor. No rashes or lesions noted. BACK: No CVA tenderness to percussion. No tenderness to palpations. (CRISTAL WATT) Course - Laboratory Result Diagrams: 06/20/17 03:40 06/20/17 03:40 <SHUKRICRISTAL ROCHA - Last Filed: 06/20/17 04:57> - Laboratory Result Diagrams: 06/20/17 03:40 06/20/17 03:40 <SILVIA TOBIAS - Last Filed: 06/20/17 07:22> - Re-evaluation Re-evalutation: 06/20/17 07:20 CBC shows leukocytosis of 13.8, chemistries show slight renal failure with a BUN of 14 and creatinine of 56 which gives a GFR of 0.98 which gives a GFR of 56 , glucose elevated 289, otherwise unremarkable, urinalysis shows greater than 500 glucose and small leukocyte esterase, 3+ bacteria and only 2 RBCs. I did not suspect kidney stone given this urine however I performed a an IV contrasted CT scan the abdomen and pelvis due to my concerns for diverticulitis based off of the abdominal exam, this CAT scan did not show any signs of diverticulitis but it did show a 0.6 mm right mid ureteral stone with moderate right hydroureter and moderate right hydronephrosis as well as mild perinephric stranding. Given the urinalysis in the stone this is concerning for an infected obstructing stone, I did discuss the patient with Shreya the APC electronic masking system operator for the urological group at [facility] as we do not have urology at this hospital at this time. He agreed to accept the patient to Dr. Ferguson service in transfer. Patient was given Rocephin here. No evidence of sepsis at this time. 06/20/17 07:22 Patient is already taking antihypertensives, will continue to follow with clinical informatics director for hypertension (SILVIA TOBIAS) - Vital Signs Vital signs: Temp Pulse Resp BP Pulse Ox 97.7 F 102 H 13 168/81 H 88 L 06/20/17 02:04 06/20/17 02:04 06/20/17 07:01 06/20/17 07:00 06/20/17 07:01 - Laboratory Laboratory results interpreted by me: 06/20/17 06/20/17 06/20/17 03:05 03:40 03:40 WBC 13.8 H RDW 14.3 H Absolute Neutrophils 10.4 H Potassium 3.3 L Est GFR (Non-Af Amer) 56 L Glucose 289 H Alkaline Phosphatase 154 H Total Protein 6.2 L Albumin 3.3 L Urine Protein 30 H Urine Glucose (UA) >=500 H Ur Leukocyte Esterase SMALL H Procedures - Ultrasound/Bedside Ultrasound/Bedside Time completed: 04:57 - Guided ultrasound, left AC. 20 gauge. <CRISTAL WATT - Last Filed: 06/20/17 04:57> Discharge <CRISTAL WATT - Last Filed: 06/20/17 04:57> <SILVIA TOBIAS - Last Filed: 06/20/17 07:22> - Discharge Clinical Impression: Hydronephrosis Qualifiers: Hydronephrosis type: with ureteral calculous obstruction Qualified Code(s): N13.2 - Hydronephrosis with renal and ureteral calculous obstruction UTI (urinary tract infection) Qualifiers: Urinary tract infection type: acute pyelonephritis Qualified Code(s): N10 - Acute pyelonephritis Hypertension Qualifiers: Hypertension type: essential hypertension Qualified Code(s): I10 - Essential ( primary) hypertension Condition: Fair Disposition: [facility] Scribe Attestation: 06/20/17 07:22 I personally performed the services described in the documentation, reviewed and edited the documentation which was dictated to the scribe in my presence, and it accurately records my words and actions. (SILVIA TOBIAS) Scribe Documentation - Scribe Written by Scribe:: Karissa Amaya, 06/20/2017 03:25 acting as scribe for :: Beau <CRISTAL WATT - Last Filed: 06/20/17 04:57>
[2017-06-20 03:24] LABS: APPEARANCE,URINE SLIGHTLY-CLOUDY; BILIRUBIN,URINE NEGATIVE (NEGATIVE); GLUCOSE, URINE >=500 mg/dL (NEGATIVE); KETONES,URINE NEGATIVE (NEGATIVE); LEUKOCYTE ESTERASE,URINE SMALL (NEGATIVE); NITRITE,URINE NEGATIVE (NEGATIVE); PROTEIN,URINE 30 mg/dL (NEGATIVE); URINE SPECIFIC GRAVITY 1.022; UROBILINOGEN,URINE NEGATIVE mg/dL (<2.0)
[2017-06-20 03:51] LABS: ABSOLUTE EOSINOPHILS # (AUTO) 0.2 10^3/uL (0.0-0.6); ABSOLUTE LYMPHOCYTES (AUTO) 2.3 10^3/uL (0.5-4.7); ABSOLUTE MONOCYTES (AUTO) 0.8 10^3/uL (0.1-1.4); ABSOLUTE NEUT (AUTO) 10.4 10^3/uL (1.7-8.2); BASOPHILS % (AUTO) 0.3 % (0-2); EOSINOPHILS % (AUTO) 1.6 % (0-6); HEMATOCRIT 39.2 % (36.0-47.0); HEMOGLOBIN 13.6 g/dL (12.0-15.5); HGB HCT DIFFERENCE 1.6; LYMPHOCYTES % (AUTO) 16.5 % (13-45); MEAN CORPUSCULAR HEMOGLOBIN 30.3 pg (27.0-33.4); MEAN CORPUSCULAR HGB CONC 34.7 g/dL (32.0-36.0); MEAN CORPUSCULAR VOLUME 87 fl (80-97); MONOCYTES % (AUTO) 6.1 % (3-13); RED BLOOD COUNT 4.49 10^6/uL (3.72-5.28); RED CELL DISTRIBUTION WIDTH 14.3 % (11.5-14.0); SEGMENTED NEUTROPHILS % (AUTO) 75.5 % (42-78); WHITE BLOOD COUNT 13.8 10^3/uL (4.0-10.5)
[2017-06-20 04:25] LABS: ALANINE AMINOTRANSFERASE 25 U/L (9-52); ALBUMIN 3.3 g/dL (3.5-5.0); ALKALINE PHOSPHATASE 154 U/L (38-126); ANION GAP 13 (5-19); ASPARTATE AMINO TRANSFERASE 18 U/L (14-36); BILIRUBIN,DIRECT 0.3 mg/dL (0.0-0.4); BILIRUBIN,TOTAL 0.4 mg/dL (0.2-1.3); BLOOD UREA NITROGEN 14 mg/dL (7-20); CALCIUM 9.2 mg/dL (8.4-10.2); CARBON DIOXIDE 23 mmol/L (22-30); CHLORIDE 102 mmol/L (98-107); CREATININE RESULT 0.98 mg/dL (0.52-1.25); GLUCOSE 289 mg/dL (75-110); POTASSIUM 3.3 mmol/L (3.6-5.0); TOTAL PROTEIN 6.2 g/dL (6.3-8.2)
[2017-06-20] MEDS ORDERED: MORPHINE SULFATE 10 MG/ML INJ IV ONE ×2 (05:41→06:26)
--- NOTE | 2017-06-20 05:59 | RADIOLOGY REPORT (SQ) ---
EXAM DESCRIPTION: CT ABD/PELVIS WITH IV ONLY COMPLETED DATE/TIME: 06/20/2017 5:27 am REASON FOR STUDY: LLQ abd pain COMPARISON: None. TECHNIQUE: CT scan of the abdomen and pelvis performed using helical scanning technique with dynamic intravenous contrast injection. No oral contrast. Images reviewed with lung, soft tissue, and bone windows. Reconstructed coronal and sagittal MPR images reviewed. Delayed images for evaluation of the urinary system also acquired. All images stored on PACS. All CT scanners at this facility use dose modulation, iterative reconstruction, and/or weight based d osing when appropriate to reduce radiation dose to as low as reasonably achievable (ALARA). [facility]: Dose Right [facility]: CareDose [facility]: Dose Right [facility]: Teradose 4D [facility]: [employer] CONTRAST TYPE AND DOSE: contrast/concentration: Isovue 370.00 mg/ml; Total Contrast Delivered: 80.0 ml; Total Saline Delivered: 55.0 ml RENAL FUNCTION: Creatinine 1.0. RADIATION DOSE: CT Rad equipment meets quality standard of care and radiation dose reduction techniq ues were employed. CTDIvol: 19.0 - 20.5 mGy. DLP: 2050 mGy-cm.. LIMITATIONS: None. FINDINGS: LOWER CHEST: No significant findings. No nodules or infiltrates. Moderate coronary arteri al calcification -stenting. LIVER: Normal size. No masses. No dilated ducts. SPLEEN: Normal size. No focal lesions. PANCREAS: No masses. No significant calcifications. No adjacent inflammation or peripancreatic fluid collections. Pancreatic duct not dilated. GALLBLADDER: Surgically absent. ADRENAL GLANDS: 1.7 cm left adrenal adenoma consistent with prior CT, 01/31/2017. RIGHT KIDNEY AND URETER: No solid masses. Moderate malrotation. 0.6 cm right mid ureteral stone wit h moderate right hydroureter and moderate right hydronephrosis. Additional right renal stones measur e up to 1.5 cm each. Engorgement of the kidney. Mild perinephric fat stranding. LEFT KIDNEY AND URETER: No solid masses. Punctate stone -calcification. No hydronephrosis or hydr oureter. AORTA AND VESSELS: No aneurysm. No dissection. Renal arteries, SMA, celiac without stenosis. Atheros clerosis. RETROPERITONEUM: No retroperitoneal adenopathy, hemorrhage or masses. BOWEL AND PERITONEAL CAVITY: No masses or inflammatory changes. No free fluid or peritoneal masses. APPENDIX: No evidence of appendicitis. PELVIS: No mass. No free fluid. Normal bladder. ABDOMINAL WALL: No masses. 13 cm x 2 cm and ventral wall hernia involves the large colon without obs truction or complication. BONES: Sternotomy. Moderate vacuum disc desiccation between the L3 and L5 levels. Mild L1 anterior compression deformity. OTHER: No other significant finding. IMPRESSION: 1. 0.6 cm right mid ureteral stone with moderate grade obstruction. 2. Moderate ventr al herniation of large bowel without complication. TECHNICAL DOCUMENTATION: JOB ID: [id number] Quality ID # [id number]: Final reports with documentation of one or more dose reduction techniques (e.g., Au tomated exposure control, adjustment of the mA and/or kV according to patient size, use of iterative reconstruction technique) 2010 [facility] [facility]- All Rights Reserved
[2017-06-20] MEDS ORDERED: CEFTRIAXONE 1 GM/D5W RTU 1 GM/50 ML RTUPB IV ONE (06:02)
[2017-06-20] MEDS ORDERED: ONDANSETRON HCL INJ/PF 4 MG/2 ML SDV IV ONE (06:38)
[2017-06-20 08:58] VITALS: BP 166/95
== END 2017-06-20 08:58 | disposition short-term general hospital (02) ==
LOC: ER 01:59
DX: N13.2 Hydronephrosis with renal and ureteral calculous obstruction (principal); N10 Acute pyelonephritis; I10 Essential (primary) hypertension; R10.9 Unspecified abdominal pain
CPT/HCPCS: 99285; 96375; 96365; 36415; 87040; 87086; 85025; 87088; 80053; 81001; 87186; 74177; J2270; J2405; J0696

== ENCOUNTER 2017-07-08 13:39 | Inpatient (IN) | payer MEDICARE, BC ==
--- NOTE | 2017-07-08 14:22 | ER Document Report ---
ED NIH Stroke Scale - NIH Stroke Scale When completed:: Protocol *: 1. NIH scale should be completed with appropriate accompanying assessment tools. *: 2. The NIH should reflect what the patient is capable of doing and should not be coached by the clinician. 1a. Level of Consciousness: 0=Alert;keenly responsive -: 1=Drowsy -: 2=Obtunded -: 3=Coma/unresponsive or reflex to noxious stimuli. 1a. Responses: 1 1b. Orientation Questions: a. What month is it? -: b. How old are you? -: 0=Answers both questions correctly. -: 1=Answers one question correctly or patient is intubated or has orotracheal trauma. -: 2=Answers neither question correctly. 1b. Responses: 1 1c. Response to commands: a. Open and close eyes? -: b. Research Phlebotomist and release hand? -: Credit is given despite weakness. Demonstration of task is permitted. Substitute command if hands cannot be used. -: 0=Performs both tasks correctly -: 1=Performs one task correctly -: 2=Performs neither task correctly 1c. Responses: 0 2. Gaze: Establish eye contact and instruct patient to "Follow my finger" -: 0=Normal -: 1=Partial gaze palsy. Gaze is abnormal in one or both eyes, but where forced deviation or total gaze paresis is not present. -: 2=Forced deviation or total gaze paresis. 2. Responses: 1 3. Visual Rose: Sees fingers in all four quadrants. -: 0=No visual loss. -: 1=Partial hemianopsia. -: 2=Complete hemianopsia. -: 3=Bilateral hemianopsia (including Cortical blindness) 3. Responses: 1 4. Facial Movement: Instruct patient to: -: a. Show me your teeth -: b. Raise your eyebrows -: c. Close your eyes -: d. Smile -: 0=Normal symmetrical movement -: 1=Minor paralysis (flattened nasolabial fold, asymmetry on smiling). -: 2=Partial paralysis (total or near total paralysis of lower face). -: 3=Complete paralysis of upper and lower face 4. Responses: 1 5. Motor functions (left arm): Alternate sides and extend each arm with palms down (90 degrees if sitting or 45 degrees for supine). -: 0=No drift;limb holds for full 10 seconds. -: 1=Drift; limb holds but drifts down before full 10 seconds, but does not hit bed. -: 2=Some effort against gravity; limb cannot get to or maintain position. -: 3=No effort against gravity; limb falls. -: 4=No movement. -: UN=Amputation, joint fusion, explain in comments. 5. Responses (left arm): 2 5. Motor Functions (right arm): Alternate sides and extend each arm with palms down (90 degrees if sitting or 45 degrees for supine). -: 0=No drift;limb holds for full 10 seconds. -: 1=Drift; limb holds but drifts down before full 10 seconds, but does not hit bed. -: 2=Some effort against gravity; limb cannot get to or maintain position. -: 3=No effort against gravity; limb falls. -: 4=No movement. -: UN=Amputation, joint fusion, explain in comments. 5. Responses (right arm): 0 6. Motor Functions (left leg): With patient lying supine, alternate sides and extend each leg (30 degrees always while supine). -: 0=No drift, leg holds position for full 5 seconds -: 1=Drift; leg falls before full 5 seconds but does not hit bed. -: 2=Some effort against gravity, leg falls to bed but some effort against gravity. -: 3=No effort against gravity, leg falls to bed immediately. -: 4=No movement. -: UN=Amputation, joint fusion; explain in comments. 6. Responses (left leg): 2 6. Motor Functions (right leg): With patient lying supine, alternate sides and extend each leg (30 degrees always while supine). -: 0=No drift, leg holds position for full 5 seconds -: 1=Drift; leg falls before full 5 seconds but does not hit bed. -: 2=Some effort against gravity, leg falls to bed but some effort against gravity. -: 3=No effort against gravity, leg falls to bed immediately. -: 4=No movement. -: UN=Amputation, joint fusion; explain in comments. 6. Responses (right leg): 0 7. Limb Ataxia: With eyes open instruct patient to: -: a. "Touch your finger to your nose". -: b. "Touch your heel to your obrien" -: 0=Absent -: 1=Present in one limb. -: 2=Present in two limbs. -: UN=Amputation or joint fusion; explain in comments. 7. Responses: 1 7. If ataxia present choose as appropriate: Left arm 8. Sensory: Test sensation using pinprick or noxious stimuli. Test as many body parts as possible. -: 0=Normal;no sensory loss -: 1=Mile to moderate sensory loss (patient feels pin prick but is less sharp on affected side). -: 2=Severe or total sensory loss. 8. Responses: 0 - 9. Best Language: Instruct patient to: -: a. "Describe what you see in this picture." -: b. "Name the items in this picture." -: c. "Read these sentences." -: 0=No aphasia, normal -: 1=Mild to moderate aphasia. -: 2=Severe aphasia -: 3=Mute, global aphasia, no usable speech or auditory comprehension. 10. Articulation, Dysarthia: Instruct patient to: -: "Read these words" or "Repeat these words" -: 0=Normal -: 1=Mild to moderate; patient may slur some words but can be understood without difficulty. -: 2=Severe; patients speech so slurred as to be unintelligible in the absence of dysphasia. -: UN=Intubated or other physical barrier, explain in comments. 10. Responses: 1 11. Extinction or inattention: 0=No abnormality -: 1= Visual, tactile, auditory, spatial, or personal inattention or extinction to bilateral simulation in one or the sensory modalities. -: 2=Profound pam-inattention or pam-inattention to more than one modality; does not recognize own hand. 11. Responses: 0 - Patient presented long after 4 hour interval Total Score: 11
[2017-07-08 14:23] LABS: ABSOLUTE EOSINOPHILS # (AUTO) 0.1 10^3/uL (0.0-0.6); ABSOLUTE LYMPHOCYTES (AUTO) 2.3 10^3/uL (0.5-4.7); ABSOLUTE MONOCYTES (AUTO) 0.5 10^3/uL (0.1-1.4); ABSOLUTE NEUT (AUTO) 9.2 10^3/uL (1.7-8.2); BASOPHILS % (AUTO) 0.4 % (0-2); EOSINOPHILS % (AUTO) 0.8 % (0-6); HEMOGLOBIN 14.9 g/dL (12.0-15.5); HGB HCT DIFFERENCE 0.7; LYMPHOCYTES % (AUTO) 18.8 % (13-45); MEAN CORPUSCULAR HEMOGLOBIN 29.5 pg (27.0-33.4); MEAN CORPUSCULAR VOLUME 87 fl (80-97); MONOCYTES % (AUTO) 4.1 % (3-13); RED BLOOD COUNT 5.06 10^6/uL (3.72-5.28); RED CELL DISTRIBUTION WIDTH 14.2 % (11.5-14.0); SEGMENTED NEUTROPHILS % (AUTO) 75.9 % (42-78); WHITE BLOOD COUNT 12.1 10^3/uL (4.0-10.5)
--- NOTE | 2017-07-08 14:24 | RADIOLOGY REPORT (SQ) ---
EXAM DESCRIPTION: CT HEAD WITHOUT COMPLETED DATE/TIME: 07/08/2017 1:51 pm REASON FOR STUDY: STROKE S/S COMPARISON: CT brain 12/03/2015, 11/30/2014, 01/12/2014 TECHNIQUE: Axial images acquired through the brain without intravenous contrast. Images reviewed wi th bone, brain and subdural windows. Images stored on PACS. All CT scanners at this facility use dose modulation, iterative reconstruction, and/or weight based d osing when appropriate to reduce radiation dose to as low as reasonably achievable (ALARA). [facility]: Dose Right [facility]: CareDose [facility]: Dose Right [facility]: Teradose 4D [facility]: [employer] RADIATION DOSE: CT Rad equipment meets quality standard of care and radiation dose reduction techniq ues were employed. CTDIvol: 64.6 mGy. DLP: 1163 mGy-cm. mGy. LIMITATIONS: None. FINDINGS: CEREBRUM: There is low attenuation with blurring of the alejandro-white junction and sulcal eff acement along the right posterior cerebral artery distribution, involving the occipital lobe and post erior and inferior right temporal lobe. Partial effacement of the temporal horn right lateral ventri kristine. No midline shift. No superimposed acute hemorrhage. Remainder of the brain parenchyma demonstrates moderate bifrontal and biparietal small vessel ischemi c change with multiple chronic appearing white matter infarcts similar compared to 12/03/2015. CEREBELLUM: No masses. No hemorrhage. No alteration of density. No evidence for acute infarction. EXTRAAXIAL SPACES: No fluid collections. No masses. ORBITS AND GLOBE: No intra- or extraconal masses. Normal contour of globe without masses. CALVARIUM: No fracture. PARANASAL SINUSES: No fluid or mucosal thickening. SOFT TISSUES: No mass or hematoma. OTHER: No other significant finding. IMPRESSION: Acute/early subacute infarct in the right posterior cerebral artery distribution involvi ng the right occipital lobe and temporal lobe. EVIDENCE OF ACUTE STROKE: YES. COMMENT: Pertinent findings on the imaging study reported as a CRITICAL RESULT to Dr Feldman at14: 00 on 07/08/2017. Category of Critical Result: CT code stroke Quality ID # [id number]: Final reports with documentation of one or more dose reduction techniques (e.g., Au tomated exposure control, adjustment of the mA and/or kV according to patient size, use of iterative reconstruction technique) TECHNICAL DOCUMENTATION: JOB ID: [id number] [facility] [employer]- All Rights Reserved
[2017-07-08 14:25] LABS: PARTIAL THROMBOPLASTIN TIME 25.7 SEC (23.5-35.8)
--- NOTE | 2017-07-08 14:25 | ER Document Report ---
ED Neuro Symptoms/Deficit - General Chief Complaint: S/S of Possible Stroke Stated Complaint: POSSIBLE STROKE Time Seen by Provider: 07/08/17 14:12 Notes: 71 years old female was brought in today because of strokelike symptoms. Could not get any clear history from patient. She is first having difficulty understanding, having some dysarthria. She states she has been having headache since last night. This morning she claims that she got up and walked felt dizzy. Currently having headache. And also weakness of the left upper limb and left lower limb. TRAVEL OUTSIDE OF THE [place] IN LAST 30 DAYS: No - Related Data Allergies/Adverse Reactions: Sulfa (Sulfonamide Antibiotics) Allergy (Severe, Verified 12/03/15 14:47) Past Medical History - Social History Smoking Status: Former Smoker Family History: DM, Hypertension - Past Medical History Cardiac Medical History: Reports: Hx Atrial Fibrillation, Hx Congestive Heart Failure, Hx Coronary Artery Disease, Hx Heart Attack, Hx Hypercholesterolemia, Hx Hypertension Pulmonary Medical History: Reports: Hx Sleep Apnea Denies: Hx Tuberculosis Endocrine Medical History: Reports: Hx Diabetes Mellitus Type 2, Hx Hypothyroidism Renal/ Medical History: Denies: Hx Peritoneal Dialysis Psychiatric Medical History: Reports: Hx Depression Past Surgical History: Reports: Hx Abdominal Surgery - fistula in abdomen, Hx Appendectomy, Hx Cardiac Catheterization, Hx Cardiac Surgery - triple bypass, stent, Hx Cholecystectomy, Hx Coronary Artery Bypass Graft - Triple-vessel, Hx Hysterectomy, Hx Tonsillectomy, Other - Abdominal wall vesicular fistula repair - Immunizations Immunizations up to date: Yes Hx Diphtheria, Pertussis, Tetanus Vaccination: Yes Hx Pneumococcal Vaccination: 06/11/15 Review of Systems - Review of Systems Notes: REVIEW OF SYSTEMS: Not possible to obtain ALL OTHER SYSTEMS REVIEWED AND NEGATIVE. PHYSICAL EXAMINATION: GENERAL: Well-appearing, well-nourished and in no acute distress. Morbidly obese HEAD: Atraumatic, normocephalic. EYES: Pupils equal round and reactive to light, extraocular movements intact, conjunctiva are normal. ENT: Nares patent, oropharynx clear without exudates. Moist mucous membranes. NECK: Normal range of motion, supple without lymphadenopathy LUNGS: Breath sounds clear to auscultation bilaterally and equal. No wheezes rales or rhonchi. HEART: Regular rate and rhythm without murmurs ABDOMEN: Soft, nontender, nondistended abdomen. No guarding, no rebound. No masses appreciated. Female : deferred Musculoskeletal: Normal range of motion, no pitting or edema. No cyanosis. NEUROLOGICAL: Alert oriented to person and place, left facial weakness noted, left upper limb weakness noted. Dysarthric, right lateral gaze, power of 405 in left lower limb. PSYCH: Normal mood, normal affect. SKIN: Warm, Dry, normal turgor, no rashes or lesions noted. Dictation was performed using 3VR voice recognition software Course - Re-evaluation Re-evalutation: 07/08/17 15:30 I reevaluated, CT report reviewed, discussed with hospitalist, she is not a candidate for any neurological intervention at this point, she need to be admitted to rehab and follow-up with neurology. - Laboratory Result Diagrams: 07/08/17 14:10 07/08/17 14:10 - Diagnostic Test Radiology results interpreted by me: 07/08/17 15:30 Rad[address] report of both CT of the brain and chest x-ray reviewed. CT indicates occipital temporal infarct on the right side. - EKG Interpretation by Me EKG shows normal: Sinus rhythm - Sinus tach at rate of 108 bpm, left axis, no acute ST elevation ST depression T-wave inversion noted. Critical Care Note - Critical Care Note Total time excluding time spent on procedures (mins): 30 Comments: Evaluation treatment and management and referral. Discharge - Discharge Clinical Impression: Occipitotemporal infarct, acute, Diabetes mellitus type 2 in obese, Obstructive sleep apnea, Obesity (BMI 30.0-34.9) Condition: Serious Disposition: ADMITTED INPATIENT Admitting Provider: Hospitalist Unit Admitted: Telemetry
[2017-07-08 14:30] LABS: PROTHROMBIN TIME 13.1 SEC (11.4-15.4)
--- NOTE | 2017-07-08 14:33 | RADIOLOGY REPORT (SQ) ---
EXAM DESCRIPTION: CHEST SINGLE VIEW COMPLETED DATE/TIME: 07/08/2017 2:14 pm REASON FOR STUDY: STROKE S/S COMPARISON: 01/31/2017 EXAM PARAMETERS: NUMBER OF VIEWS: One view. TECHNIQUE: Single frontal radiographic view of the chest acquired. RADIATION DOSE: NA LIMITATIONS: None. FINDINGS: LUNGS AND PLEURA: No opacities, masses or pneumothorax. No pleural effusion. MEDIASTINUM AND HILAR STRUCTURES: No masses. Contour normal. HEART AND VASCULAR STRUCTURES: Heart normal in size. Normal vasculature. BONES: No acute findings. HARDWARE: Sternotomy wires OTHER: No other significant finding. IMPRESSION: NO ACUTE RADIOGRAPHIC FINDING IN THE CHEST. TECHNICAL DOCUMENTATION: JOB ID: [id number] [employer]- All Rights Reserved
[2017-07-08 14:42] LABS: ALANINE AMINOTRANSFERASE 33 U/L (9-52); ALBUMIN 3.8 g/dL (3.5-5.0); ALKALINE PHOSPHATASE 177 U/L (38-126); ANION GAP 14 (5-19); ASPARTATE AMINO TRANSFERASE 24 U/L (14-36); BILIRUBIN,DIRECT 0.4 mg/dL (0.0-0.4); BILIRUBIN,TOTAL 0.5 mg/dL (0.2-1.3); BLOOD UREA NITROGEN 16 mg/dL (7-20); CALCIUM 9.7 mg/dL (8.4-10.2); CARBON DIOXIDE 22 mmol/L (22-30); CHLORIDE 101 mmol/L (98-107); CREATINE KINASE 28 U/L (30-135); CREATININE RESULT 0.92 mg/dL (0.52-1.25); POTASSIUM 3.7 mmol/L (3.6-5.0); SODIUM 136.9 mmol/L (137-145); TOTAL PROTEIN 7.7 g/dL (6.3-8.2)
[2017-07-08 14:54] LABS: CREATINE KINASE MB 0.85 ng/mL (<4.55)
[2017-07-08 14:59] LABS: TROPONIN I 0.037 ng/mL
[2017-07-08] MEDS ORDERED: HUM INSULIN NPH/REG INSULIN HM 100 UNIT/1 ML 3 ML SUBCUT ONE (15:11)
[2017-07-08 15:17] LABS: GLUCOSE 431 mg/dL (75-110)
[2017-07-08] MEDS ORDERED: LABETALOL HCL INJ 20 MG/4 ML DISP.SYRIN IV PRN (16:31)
[2017-07-08] MEDS ORDERED: NITROGLYCERIN 0.4 MG/TAB 25 TAB/BOTTLE SL PRN (16:38)
[2017-07-08] MEDS ORDERED: DEXTROSE 50%-WATER 25 GM/50 ML DISP.SYRIN IV PRN ×2 (16:40)
[2017-07-08] MEDS ORDERED: DEXTROSE 40% GEL 15 GM TUBE PO PRN ×2 (16:40)
[2017-07-08] MEDS ORDERED: GLUCAGON,HUMAN RECOMB 1 MG INJ IM PRN (16:40)
[2017-07-08] MEDS ORDERED: [UNRECOGNIZED DRUG - OTHER] SQ SCH (17:00)
[2017-07-08] MEDS ORDERED: INSULIN REGULAR HUMAN SQ SCH (17:00)
[2017-07-08] MEDS: METOCLOPRAMIDE HCL INJ/PF 10 MG/2 ML SDV IV SCH (17:12)
[2017-07-08] MEDS ORDERED: LORAZEPAM INJ 2 MG/1 ML VIAL IV PRN (17:50)
[2017-07-08] MEDS ORDERED: INSULIN LISPRO 100 UNIT/ML 3 ML VIAL SUBCUT SCH (18:00)
--- NOTE | 2017-07-08 18:44 | HISTORY AND PHYSICAL E ---
History and Physical NAME: KEVIN INFANTE : 1945 AGE: 71Y ADMITTED: 07/08/2017 ROOM: ED04 CODE STATUS: DO NOT RESUSCITATE/DO NOT INTUBATE. . PRIMARY CARE PROVIDER: [facility]. CHIEF COMPLAINT: Right-sided facial numbness. HISTORY OF PRESENT ILLNESS: The patient is a 71-year-old female that is known to the hospitalist service. The patient presented to the emergency department on 07/08/2017 via EMS due to left-sided facial numbness and confusion. The patient herself is unable to provide any clear history, and the patient does have some noted dysarthria. The patient does state, though, that she has had a headache overnight and yesterday did note some numbness in her face. The patient's daughter is present at the bedside and active in the patient's care and states that the patient has had these ongoing symptoms for at least 2 days and has been grabbing the side of her face and stating that she cannot see well. The patient did not want to come to the emergency department; however, after much encouragement from the family, the patient did agree to allow an EMS to at least evaluate. Upon presentation the patient was found to be significantly hyperglycemic with a blood glucose of 431. After the patient arrived to the emergency department, she was found to be hypertensive, tachycardic with systolic blood pressures in the 170s as well as heart rate of 110. The patient did have a CT on presentation which was suggestive of a right occipital and temporal region infarction and the patient was referred to the hospital for admission and management. Upon evaluation, the daughter was present at the bedside and active in the patient's care and was able to provide most of the history. The patient is disoriented about a lot of details. The patient was able to state her location and the year; however, she was quite confused with more simple details and was actually picking at her gown and thinking it was food. The patient denies any pain, has denied any nausea or vomiting. There have been no reported episodes of vomiting or diarrhea. The patient states that she agrees to stay but wants to go home. The daughter states that the patient has been noncompliant and has been for years. This has been documented in previous medical records. The patient does not like taking her diabetes medications or any of her other medications and subsequently has very poorly controlled hypertension and diabetes. The daughter, who is a healthcare worker, states she is aware of the ramifications of this, however, does not force her mother to do anything she does not to want to do, and the patient has expressed the desire for a natural and the patient's daughter is in agreeance to this plan. PAST MEDICAL HISTORY: 1. Atrial fibrillation. 2. Chronic systolic and diastolic congestive heart failure. 3. Coronary artery disease. 4. Previous myocardial infarction. 5. Hyperlipidemia. 6. Hypertension. 7. Obstructive sleep apnea. The patient refuses CPAP. 8. Diabetes mellitus type 2, poorly controlled. 9. Hypothyroidism. 10. Major depression. PAST SURGICAL HISTORY: 1. Abdominal surgery due a fistula in the abdomen. 2. Appendectomy. 3. Cardiac catheterization. 4. Coronary artery bypass grafting x3 stents. 5. Cholecystectomy. 6. Hysterectomy. 7. Tonsillectomy. 8. Ureteral stent placement. The patient was scheduled outpatient to have this placed. ALLERGIES: SULFA. HOME MEDICATIONS: 1. Aspirin 81 mg p.o. daily. 2. Lipitor 80 mg p.o. every hour of sleep. 3. Wellbutrin 300 mg p.o. daily. 4. Plavix 75 mg p.o. daily. 5. Novolin R 20 units subcutaneous with meal. 6. NPH 90 units subcutaneous b.i.d. 7. Nitrostat 0.4 mg sublingually every 5 minutes p.r.n. 8. Diovan 160 mg p.o. daily. 9. Toprol XL 100 mg p.o. daily. 10. Synthroid 0.075 mg p.o. daily. 11. Isosorbide mononitrate 30 mg p.o. every morning. SOCIAL HISTORY: The patient currently resides at home with her daughter who is her sole caregiver. The daughter is an only child. Her name is *------* and may be reached at [phone]. The patient herself is retired and is a former smoker. She has not smoked in a couple of years. No history of alcohol or illicit drug use. FAMILY MEDICAL HISTORY: The patient's mother is ; she did have leukemia, was diabetic and hypertensive. The patient's father is of complications of Parkinson disease. He also had hypertension, depression. The patient does have 1 sister but she is of breast cancer. The patient does have a daughter who is healthy. REVIEW OF SYSTEMS: A full review of systems cannot be appreciated at this time given the patient's mental status. PHYSICAL EXAMINATION: GENERAL: On examination, the patient is a chronically ill-appearing 71-year-old female who is awake, alert. She is not fully oriented although she is oriented to time and place. She does not appear to be distressed. VITAL SIGNS: Temperature is 98.9, pulse 103, respirations 18, blood pressure 139/104, oxygen saturation 97% on room air. SKIN: Pale, dry. No rash. She is not diaphoretic. HEENT: Pupils are equal, round, and reactive to light and accommodation although sluggish. The patient has no peripheral vision on her right side. Conjunctivae are pink. Sclerae are not icteric. There are no mouth lesions. Tongue is midline. NECK: Supple. No JVD. No palpable lymphadenopathy or thyromegaly. CARDIOVASCULAR: Heart is regular. There is no murmur or rub. CHEST: Clear, symmetrical and unlabored. ABDOMEN: Soft, nontender, nondistended. Bowel sounds are present. No palpable organomegaly. BACK: No CVA tenderness or sacral edema. EXTREMITIES: No clubbing, cyanosis or edema or peripheral signs of embolization. There are +2 pedal pulses are noted. The patient does have excellent strength in her bilateral lower extremities. On the patient's upper extremities, she has near flaccidity in her left arm. PSYCHIATRIC: The patient does have a bizarre affect. DIAGNOSTICS: Labs are as follows: Hematology obtained on 07/08/2017: WBC 12.1, hemoglobin 14.9, hematocrit 44.0, platelet count is 396,000. Coagulation obtained on 07/08/2017: PT 13.1, INR 0.93. Chemistry obtained on 07/08/2017: Sodium 136, potassium 3.7, chloride 101, carbon dioxide 22, BUN 16, creatinine 0.92, glucose 395, calcium is 9.7, bilirubin is 25, AST 24, ALT 33, alk phos 157, CK 28, CK-MB 0.85, troponin is 0.037, total protein 7.7, albumin 3.8. Chest x-ray obtained on 07/08/2017: No acute radiographic finding of the chest. EKG obtained on 07/08/2017 reveals sinus tachycardia. Head CT obtained on 07/08/2017 reveals infarct of the right posterior cerebral artery distribution involving the right occipital lobe and temporal lobes. IMPRESSION AND PLAN: 1. Acute cerebrovascular accident. It appears that this is subacute and possibly happened about 48 hours ago. Will allow the patient another day of permissive hypertension and resume all hypertensive agents tomorrow. Additionally, we will admit the patient. I have consulted Speech, Occupational and Physical therapies. Additionally will proceed with stroke protocol and follow. Will obtain MRI, carotids and echocardiogram. 2. Coronary artery disease. The patient has already received her aspirin but will continue aspirin and Plavix therapy in the a.m. given that the patient will be 72 hours out. 3. Hypertension. Will resume the patient's antihypertensive agents in the a.m., given that she is most likely 72 hours out from the stroke. 4. Diabetes mellitus type 2. Very poorly controlled. The patient does not take her medications at home. She has been given sliding scale coverage in the ER and will follow this up and resume the patient's prescribed dosages as well as additional sliding scale coverage and follow. 5. Atrial fibrillation. The patient is currently in sinus rhythm. Will go ahead and give the patient a dose of metoprolol, since she is beginning to be tachycardic. Uncertain at to why the patient is not on any anticoagulation for this. The patient may possibly could have had a cardiac event; however, it is just 1 territory. Will obtain records from [facility] as well as [facility] and follow. 6. Hypothyroidism. Will continue levothyroxine. DISPOSITION: The patient is a DO NOT RESUSCITATE/DO NOT INTUBATE. Pending patient's symptomatology and diagnostic findings, will evaluate in the a.m. Will observe the patient to inpatient IMCU, as the patient's expected length of stay should not surpass 2 midnights. Will consult with social work for rehab placement additionally. Given the patient's multiple medical problems and her desire for conservative management, will consult Palliative Care to help with goals of care. Time spent on this admission including assessment, plan, physical examination, patient education, family meeting, and review of records is 50 minutes. DICTATING PHYSICIAN: SAVANNA BRNUO NP [id number] [facility]#: [id number] ID: [id number] JOB#: [id number] ACCT: [id number] cc:MARIANA العراقي M.D., MICHAEL NP >
--- NOTE | 2017-07-08 19:02 | RADIOLOGY REPORT (SQ) ---
EXAM DESCRIPTION: MRI HEAD WITHOUT COMPLETED DATE/TIME: 07/08/2017 6:48 pm REASON FOR STUDY: CVA COMPARISON: 07/08/2017 TECHNIQUE: Multiplanar imaging includes non-contrasted T1, T2, FLAIR, and diffusion with ADC map seq uences. Images stored on PACS. LIMITATIONS: Motion FINDINGS: ANATOMY: No anomalies. Normal vascular flow voids. Pituitary fossa normal. CSF SPACES: Atrophy induced prominence of ventricles and CSF spaces. CEREBRUM: High signal intensity lesions scattered throughout the white matter on FLAIR imaging with d istribution suggesting micro-vascular ischemic changes. No evidence of hemorrhage, mass, or extraaxi al fluid collection. POSTERIOR FOSSA: No signal alteration. No hemorrhage. No edema, masses or mass effect. Internal jonathon tory canals, cerebello-pontine angles, mastoids normal. DIFFUSION IMAGING: Large area of restricted diffusion involving the vascular territory of the right p osterior cerebral artery. ORBITS: No masses. Globes normal. PARANASAL SINUSES: No fluid levels. Mucosa normal. OTHER: No other significant finding. IMPRESSION: Acute stroke involving the vascular territory of the right posterior cerebral artery. Microvascular ischemic change and atrophy. 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
--- NOTE | 2017-07-08 21:55 | EKG REPORT ---
SEVERITY:- ABNORMAL ECG - SINUS TACHYCARDIA LVH WITH SECONDARY REPOLARIZATION ABNORMALITY : Confirmed by: Dorothea Lawrence 08-Jul-2017 21:54:51
[2017-07-08] MEDS ORDERED: ATORVASTATIN CALCIUM 80 MG TABLET PO SCH (22:00)
[2017-07-09] MEDS: METOCLOPRAMIDE HCL INJ/PF 10 MG/2 ML SDV IV SCH ×3 (00:17→11:28)
[2017-07-09] MEDS: ATORVASTATIN CALCIUM 80 MG TABLET PO SCH ×2 (00:17→22:05)
[2017-07-09] MEDS ORDERED: LEVOTHYROXINE SODIUM 0.075 MG TABLET PO SCH (06:00)
[2017-07-09] MEDS ORDERED: [UNRECOGNIZED DRUG - OTHER] SQ SCH (07:00)
[2017-07-09] MEDS ORDERED: NPH HUMAN INSULIN ISOPHANE SQ SCH (07:00)
[2017-07-09] MEDS ORDERED: ISOSORBIDE MONONITRATE 30 MG TAB.ER.24H PO SCH (08:00)
[2017-07-09] MEDS ORDERED: VALSARTAN 160 MG TABLET PO SCH (10:00)
[2017-07-09] MEDS ORDERED: CLOPIDOGREL BISULFATE 75 MG TABLET PO SCH (10:00)
[2017-07-09] MEDS ORDERED: ENOXAPARIN SODIUM INJ 40 MG/0.4 ML DISP.SYRIN SUBCUT SCH (10:00)
[2017-07-09] MEDS ORDERED: METOPROLOL SUCCINATE 50 MG TAB.SR.24H PO SCH (10:00)
[2017-07-09] MEDS: ASPIRIN 81 MG TABLET, ENT COATED PO SCH (10:18)
[2017-07-09] MEDS: INSULIN LISPRO 100 UNIT/ML 3 ML VIAL SUBCUT SCH ×3 (11:21→18:05)
--- NOTE | 2017-07-09 12:22 | RADIOLOGY REPORT (SQ) ---
EXAM DESCRIPTION: CAROTID DOPPLER COMPLETED DATE/TIME: 07/09/2017 11:46 am REASON FOR STUDY: CVA COMPARISON: None. TECHNIQUE: Grayscale ultrasound, Doppler velocity and spectra, and color Doppler images acquired of the extra-cranial carotid and vertebral arteries. Images stored on PACS. LIMITATIONS: Per technologist, mild cooperation issues. Distal left internal carotid not imaged. L eft vertebral not seen. FINDINGS: RIGHT CAROTID CCA Velocities: Within normal limits. ICA Velocities Peak systolic 0.66 m/s. End diastolic 0.21 m/s. Proximal ICA/CCA peak systolic ratio 0.7. Spectra normal. No significant plaque. LEFT CAROTID CCA Velocities: Within normal limits. ICA Velocities Peak systolic 1.2 m/s. End diastolic 0.28 m/s. Proximal ICA/CCA peak systolic ratio 1.6. Spectra normal. No significant plaque. VERTEBRAL ARTERIES: Right antegrade and normal. Left not seen. SUBCLAVIAN ARTERIES: No finding. OTHER: No other significant finding. IMPRESSION: Mildly limited study. No evidence of hemodynamically significant internal carotid steno sis, however. COMMENT: Quality ID #195: Velocity criteria are extrapolated from the diameter data as defined by t he Society of Radiologists in Ultrasound Consensus Conference. Radiology 2003: 229; 340-346. TECHNICAL DOCUMENTATION: JOB ID: [id number] [employer]- All Rights Reserved
[2017-07-09] MEDS ORDERED: NORMAL SALINE 1,000 ML IV PRN (12:33)
--- NOTE | 2017-07-09 12:51 | RADIOLOGY REPORT (SQ) ---
EXAM DESCRIPTION: CT HEAD WITHOUT COMPLETED DATE/TIME: 07/09/2017 11:51 am REASON FOR STUDY: r/o Bleed change in mental staus acute CVA COMPARISON: CT brain 07/08/2017 TECHNIQUE: Axial images acquired through the brain without intravenous contrast. Images reviewed wi th bone, brain and subdural windows. Images stored on PACS. All CT scanners at this facility use dose modulation, iterative reconstruction, and/or weight based d osing when appropriate to reduce radiation dose to as low as reasonably achievable (ALARA). [facility]: Dose Right [facility]: CareDose [facility]: Dose Right [facility]: Teradose 4D [facility]: Smart LinguaLeo RADIATION DOSE: CT Rad equipment meets quality standard of care and radiation dose reduction techniq ues were employed. CTDIvol: 49.0 mGy. DLP: 783 mGy-cm. mGy. LIMITATIONS: None. FINDINGS: VENTRICLES: Normal size and contour. CEREBRUM: There is an early subacute infarct in the right posterior cerebral artery distribution invo lving the majority of the right posterior and inferior temporal lobe, right occipital lobe, and right thalamus. This is better visualized than on CT exam yesterday due to evolution of the infarct. No acute superimposed hemorrhage. Remainder of the study demonstrates chronic bifrontal and biparietal s mall vessel ischemic change, and bilateral benign basal ganglia calcifications. CEREBELLUM: No masses. No hemorrhage. No alteration of density. No evidence for acute infarction. EXTRAAXIAL SPACES: No fluid collections. No masses. ORBITS AND GLOBE: Post cataract surgery. No masses CALVARIUM: No fracture. PARANASAL SINUSES: No fluid or mucosal thickening. SOFT TISSUES: No mass or hematoma. OTHER: No other significant finding. IMPRESSION: Further evolution of the right posterior cerebral artery distribution infarct, without a cute superimposed hemorrhage. Since yesterday's CT exam, patient has developed low attenuation in the right thalamus from infarct. No superimposed hemorrhage. EVIDENCE OF ACUTE STROKE: Yes COMMENT: Pertinent findings on the imaging study reported as a CRITICAL RESULT to TERRAZZO JOURNEYMAN STANTON ZAYAS at12:24 on 07/09/2017. Category of Critical Result: Stroke Quality ID # 436: Final reports with documentation of one or more dose reduction techniques (e.g., Au tomated exposure control, adjustment of the mA and/or kV according to patient size, use of iterative reconstruction technique) TECHNICAL DOCUMENTATION: JOB ID: [id number] [employer]- All Rights Reserved
--- NOTE | 2017-07-09 13:08 | XCELERA REPORT ---
[address] [address] Transthoracic Echocardiogram Report Name: KEVIN INFANTE Age: 71 yrs Gender: Female : 1945 Patient Status: Inpatient Patient Location: [address] [place], [place] [address] Study Date: 07/09/2017 10:35 AM Height: 61 in Weight: 223 lb BSA: 2.0 m2 Procedure: A two-dimensional transthoracic echocardiogram with color flow and Doppler was performed. The study was technically limited with all images being suboptimal in quality. Images were not obtained from all of the standard acoustic windows due to the limited scope of the study. Reason For Study: CVA History: CVA. Ordering Physician: SAVANNA BRUNO Performed By: Ladonna Guerin Interpretation Summary There is no obvious cardiac source of embolus noted on this transthoracic echocardiogram. Follow-up with a VOLODYMYR is suggested if cardiac source is still suspected. The left ventricle is normal in size. No True 2 chamber apical views obtained.Hence cannot comment on the apical and basal anterior sr, and the apical and basal inferior sr.The mid anterior and the mid inferior and the rest of the sr contract normally.Mild to moderate LVH.In these views LVEF is > than60.. LV diastolic function could not be adequately assessed due to atrial fibrilation. The right ventricle is not well visualized secondary to technical limitations There is no thrombus. The left atrial size is normal. There is no evidence of mitral valve prolapse. There is no mitral valve stenosis. There is no mitral regurgitation noted. There is no aortic valvular vegetation. There is Aortic SCLEROSIS WITHOUT STENOSIS. There is no LVOT obstruction. No aortic regurgitation is present. There is no tricuspid stenosis. No tricuspid regurgitation. uNABLE TO cALCULATE rvsp DUE TO LACK OF tr JET. There is no pulmonic valvular stenosis. There is no pulmonic valvular regurgitation. The aortic root is not well visualized but is probably normal size. There is no pericardial effusion. There is no obvious cardiac source of embolus noted on this transthoracic echocardiogram. Follow-up with a VOLODYMYR is suggested if cardiac source is still suspected MMode/2D Measurements & Calculations RVDd: 3.2 cm LVIDd: 3.9 cm FS: 36.4 % Ao root diam: 2.7 cm IVSd: 1.4 cm LVIDs: 2.5 cm EDV(Teich): 65.2 ml LVPWd: 1.4 cm ESV(Teich): 21.6 ml Ao root area: 5.6 cm2 EF(Teich): 66.8 % LA dimension: 2.5 cm Doppler Measurements & Calculations MV E max baldo: MV P1/2t max baldo: Ao V2 max: LV V1 max P.1 cm/sec 110.6 cm/sec 104.2 cm/sec 1.8 mmHg MV P1/2t: 23.4 msec Ao max PG: LV V1 max: 4.3 mmHg 67.1 cm/sec MVA(P1/2t): 9.4 cm2 MV dec slope: 1386 cm/sec2 PA V2 max: 97.7 cm/sec PA max P.8 mmHg Left Ventricle The left ventricle is normal in size. No True 2 chamber apical views obtained.Hence cannot comment on the apical and basal anterior sr, and the apical and basal inferior sr.The mid anterior and the mid inferior and the rest of the sr contract normally.Mild to moderate LVH.In these views LVEF is > than60.. LV diastolic function could not be adequately assessed due to atrial fibrilation. There is no thrombus. Right Ventricle The right ventricle is not well visualized secondary to technical limitations. Atria The right atrium is normal. The left atrial size is normal. Mitral Valve There is mild mitral annular calcification. There is no evidence of mitral valve prolapse. There is no vegetation seen on the mitral valve. There is no mitral valve stenosis. There is no mitral regurgitation noted. Aortic Valve There is no aortic valvular vegetation. There is Aortic SCLEROSIS WITHOUT STENOSIS. There is no LVOT obstruction. No aortic regurgitation is present. Tricuspid Valve There is no tricuspid stenosis. No tricuspid regurgitation. uNABLE TO cALCULATE rvsp DUE TO LACK OF tr JET. Pulmonic Valve There is no pulmonic valvular stenosis. There is no pulmonic valvular regurgitation. Great Vessels The aortic root is not well visualized but is probably normal size. Effusions There is no pericardial effusion. : SAVANNA BRUNO > Kayli Swann
[2017-07-09] MEDS ORDERED: ACETAMINOPHEN 325 MG SUPP.RECT PR PRN (13:17)
[2017-07-09] MEDS ORDERED: DEXTROSE 40% GEL 15 GM TUBE PO PRN (14:18)
[2017-07-09] MEDS ORDERED: DEXTROSE 50%-WATER 25 GM/50 ML DISP.SYRIN IV PRN ×2 (14:18)
[2017-07-09] MEDS ORDERED: GLUCAGON,HUMAN RECOMB 1 MG INJ SUBCUT PRN (14:18)
[2017-07-09] MEDS ORDERED: LABETALOL HCL INJ 20 MG/4 ML DISP.SYRIN IV PRN (14:24)
[2017-07-09] MEDS ORDERED: INSULIN LISPRO 100 UNIT/ML 3 ML VIAL SUBCUT ONE ×2 (16:00)
--- NOTE | 2017-07-09 16:03 | PDOC PROGRESS REPORT ---
Subjective Progress Note for:: 07/09/17 Subjective:: Assume care patient today. Patient suffered a acute/subacute left CVA thrombolytic in July 08. This morning prior to my assessment her orders patient was giving metoprolol, Diovan, and Plavix, aspirin 81 mg, and Lovenox subcu. Initially this morning patient's blood pressure was 150s over 80s. She started developing in the sudden acute change in level of consciousness. Blood pressure dropped 80s over 50s so she was given a stat CT head without contrast. Antihypertensive, anticoagulant and antiplatelet therapy was on hold at this time. Permissive hypertension should be obtained with goal of her blood pressure should not go below 150 systolic and 80 diastolic. Per family patient' s had acute change in mental status this morning lot more lethargic increased weakness on the left side she does she can squeeze her hands on the right side and flank are move her right lower extremity. Patient will need at least 72 hour window from 11:00 and 1215 prior to restarting her antihypertensive medications. Reason For Visit: ACUTE CVA Physical Exam Vital Signs: Temp Pulse Resp BP Pulse Ox 98.3 F 89 16 152/71 H 99 07/09/17 07:52 07/09/17 07:52 07/09/17 07:52 07/09/17 07:52 07/09/17 07:52 Intake & Output 07/08/17 07/09/17 07/10/17 06:59 06:59 06:59 Intake Total 489 Output Total 250 Balance 239 Weight 101.2 kg General appearance: PRESENT: obese. ABSENT: cooperative Head exam: PRESENT: atraumatic, normocephalic Eye exam: PRESENT: conjunctiva pink, EOMI, PERRLA. ABSENT: scleral icterus Ear exam: PRESENT: normal external ear exam Mouth exam: PRESENT: moist, tongue midline Neck exam: ABSENT: carotid bruit, JVD, lymphadenopathy, thyromegaly Respiratory exam: PRESENT: clear to auscultation chadd. ABSENT: rales, rhonchi, wheezes Cardiovascular exam: PRESENT: RRR. ABSENT: diastolic murmur, rubs, systolic murmur Pulses: PRESENT: normal dorsalis pedis pul Vascular exam: PRESENT: normal capillary refill GI/Abdominal exam: PRESENT: normal bowel sounds, soft. ABSENT: distended, guarding, mass, organolmegaly, rebound, tenderness Rectal exam: PRESENT: deferred Extremities exam: PRESENT: full ROM. ABSENT: calf tenderness, clubbing, pedal edema Neurological exam: PRESENT: altered, aphasic, other - lethargic. ABSENT: alert , awake Psychiatric exam: PRESENT: appropriate affect, normal mood. ABSENT: homicidal ideation, suicidal ideation Skin exam: PRESENT: dry, intact, warm. ABSENT: cyanosis, rash Results Impressions: Head MRI 07/08/17 00:00 IMPRESSION: Acute stroke involving the vascular territory of the right posterior cerebral artery. Microvascular ischemic change and atrophy. 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 Head CT 07/08/17 13:41 IMPRESSION: Acute/early subacute infarct in the right posterior cerebral artery distribution involving the right occipital lobe and temporal lobe. EVIDENCE OF ACUTE STROKE: YES. Assessment & Plan - Diagnosis (1) Occipitotemporal infarct, acute Is this a current diagnosis for this admission?: Yes Plan: Head CT without contrast 07/09 showed an early subacute infarct in the right posterior cerebral artery distribution darty of the right posterior and inferior temporal lobe, right occipital lobe, and right thalamus. Visualized more today than yesterday via CT scan due to evolution of the infarct. No acute superimposed hemorrhage seen. Further evolution of right posterior cerebral artery infarct without hemorrhage however she did develop low attenuation in the right thalamus from infarct Plan permissive hypertension goal should be systolic blood pressure greater than 150 and greater than 90 hold all BP meds for now Normal saline 500 cc IV bolus for hypotension continue IV fluids at 75 cc an hour N.p.o. hold all p.o. meds until patient is awake alert and oriented Hold Lovenox and Plavix for now. Give rectal aspirin 300 mg daily Palliative care consult done and appreciated regarding goals of care management discussion Echocardiogram and carotid Dopplers were negative Per family patient had lost her desire to live encourage symptom management comfort management would not be aggressive with NG or feeding tubes at this point. Remain a full code for now if patient's condition does not improve family may consider DNR later to be readdressed. Adjust diabetic medication for now. Continue home meds but just closer with her sliding scale insulin especially while she is n.p.o. Since patient had more pronounced acute CVA today her 4 week window for anticoagulation if she is a candidate should start today. (2) HTN (hypertension), malignant Is this a current diagnosis for this admission?: Yes Plan: Prevent hypotension for at least 72 hours. (3) Obesity (BMI 30.0-34.9) Is this a current diagnosis for this admission?: Yes (4) Obstructive sleep apnea Is this a current diagnosis for this admission?: Yes (5) Coronary artery disease Qualifiers: Coronary Disease-Associated Artery/Lesion type: unspecified vessel or lesion type Associated angina: without angina Is this a current diagnosis for this admission?: Yes - Time Time Spent with patient: 1 hour and 15 minute greater than 50% time [id number] coordinating care feel this patient will meet greater than 2 midnight stay Time Spent with patient: 35 or more minutes Medications reviewed and adjusted accordingly: Yes - Plan Summary Plan Summary: Suspect patient will need greater than 2 midnight stay due to complexity of her CVA and need to rule out reason for her acute mental status change approximately 1 hour 15 minutes was spent planning counseling coordinating care for an acute change in condition greater than 50% of my time was spent in face- to-face counseling with family, reviewing medications, reviewing previous labs, scans with multiple medication changes.
[2017-07-09 16:10] LABS: APPEARANCE,URINE TURBID; BILIRUBIN,URINE NEGATIVE (NEGATIVE); GLUCOSE, URINE >=500 mg/dL (NEGATIVE); KETONES,URINE NEGATIVE (NEGATIVE); LEUKOCYTE ESTERASE,URINE LARGE (NEGATIVE); NITRITE,URINE NEGATIVE (NEGATIVE); PROTEIN,URINE 100 mg/dL (NEGATIVE); URINE SPECIFIC GRAVITY 1.015; UROBILINOGEN,URINE NEGATIVE mg/dL (<2.0)
[2017-07-09] MEDS: INSULIN NPH (ISOPHANE), HUMAN 100 UNIT/ML 3 ML SUBCUT SCH (17:00)
[2017-07-09] MEDS ORDERED: ACETAMINOPHEN 325 MG TABLET ONE (20:50)
[2017-07-09] MEDS: INSULIN LISPRO 100 UNIT/ML 3 ML VIAL SUBCUT PRN ×2 (20:58→22:36)
--- NOTE | 2017-07-09 21:04 | Palliative Consultation Report ---
Consultation - HPI HPI: Appreciate palliative care consult with this 71 year old woman who has been admitted with Right occipital and temporal infarct. She lives alone. She was having facial numbness for 2 days at home before she would allow her daughter to bring her to the hospital. Since admission yesterday, she has actually gotten worse, much less responsive, not using her left arm or hand, no speech and no response to words. CT was repeated today due to her neurological changes and it showed increase in the infarct. Patient is showing no evidence of pain or respiratory distress. She has had no seizures Her daughter is at bedside and has background of working in medicine doing EKG' s. She understands the implications of the CT results and her mothers worsening condition. She is trying to make descions now for patent for the future. I told her that the most important decision was for the DNR/DNI and beyond that, there is really nothing to determine until a little time passes to see if patient is going to stabilze, get worse or possibly get a little better. We discussed rehab, home with hospice etc as options in the near future. We discussed feeding tube, which she states she knows her mother would not want. I encouraged daughter to just give the situation some time and see how the condition changes. She will let usknow if anything changes in her mothers facial expressions to indicate pain. Onset: Just prior to arrival Quality of Pain: No pain Associated Symptoms: None Past Medical History(Consults) - General Information Source: Relative, [facility] Records Home Medications: Aspirin [Ecotrin 81 mg EC Tablet] 81 mg PO DAILY 02/01/17 Atorvastatin Calcium [Lipitor 80 mg Tablet] 80 mg PO QHS 02/01/17 Bupropion HCl [Wellbutrin Xl 300mg 24hr Tablet] 300 mg PO DAILY 02/01/17 Clopidogrel Bisulfate [Plavix 75 mg Tablet] 75 mg PO DAILY 02/01/17 Insulin Regular, Human [Novolin R (Reg) Insulin 100 unit/mL] 0 units SQ .SLDING SCALE 02/01/17 Insulin Regular, Human [Novolin R (Reg) Insulin 100 unit/mL] 20 units SQ MEALS 02/01/17 Isosorbide Mononitrate [Isosorbide Mononitrate ER] 30 mg PO QAM 02/01/17 Levothyroxine Sodium [Synthroid 0.075 mg Tablet] 0.075 mg PO DAILY 02/01/17 Metoprolol Succinate [Toprol XL 100 mg Tablet] 100 mg PO DAILY 02/01/17 NPH, Human Insulin Isophane [Novolin N (NPH) Insulin 100 unit/mL] 90 units SQ BID 02/01/17 Nitroglycerin [Nitrostat] 0.4 mg SL Q5MP PRN 02/01/17 Valsartan [Diovan 160 mg Tablet] 160 mg PO DAILY 02/01/17 Allergies/Adverse Reactions: Sulfa (Sulfonamide Antibiotics) Allergy (Severe, Verified 12/03/15 14:47) - Social History Lives with: Alone Family History: DM, Hypertension Parental Family History Reviewed: No Children Family History Reviewed: No Sibling(s) Family History Reviewed.: No Smoking Status: Never Smoker Frequency of Alcohol Use: Rare Drugs: None Hx Prescription Drug Abuse: No - Past Medical History Cardiac Medical History: Reports: Hx Atrial Fibrillation, Hx Congestive Heart Failure, Hx Coronary Artery Disease, Hx Heart Attack, Hx Hypercholesterolemia, Hx Hypertension Pulmonary Medical History: Reports: None, Hx Sleep Apnea Denies: Hx Tuberculosis Endocrine Medical History: Reports: Hx Diabetes Mellitus Type 2, Hx Hypothyroidism Renal/ Medical History: Denies: Hx Peritoneal Dialysis Psychiatric Medical History: Reports: Hx Depression - Surgical History Surgical Hx: Negative Past Surgical History: Reports: Hx Abdominal Surgery - fistula in abdomen, Hx Appendectomy, Hx Cardiac Catheterization, Hx Cardiac Surgery - triple bypass, stent, Hx Cholecystectomy, Hx Coronary Artery Bypass Graft - Triple-vessel, Hx Hysterectomy, Hx Tonsillectomy, Other - Abdominal wall vesicular fistula repair - Immunizations Immunizations up to date: Yes Review of systems ROS unobtainable: due to mental statu Ojective:Exam Vital Signs: Temp Pulse Resp BP Pulse Ox 98.2 F 71 20 126/47 H 97 07/09/17 19:53 07/09/17 19:53 07/09/17 19:53 07/09/17 19:53 07/09/17 19:53 Intake & Output 07/08/17 07/09/17 07/10/17 06:59 06:59 06:59 Intake Total 489 1027 Output Total 250 50 Balance 239 977 Weight 101.2 kg 101.2 kg - General General Appearance: Unresponsive Note:: Moves right arm in bed spontaneously, but no movement of left arm or face. No words, soes not open eyes, No grimace or moaning. Color pale, breathing easily. - Respiratory Respiratory Status: No respiratory distress - Cardiovascular Rhythm: Regular - Neurological Cognition: Other - Non responsive Orientation: Other Speech: Other Objective-Diagnostic Laboratory: 07/09/17 15:31 Urine Color YELLOW Urine Appearance TURBID Urine pH 5.0 Ur Specific Lyle 1.015 Urine Protein 100 H Urine Glucose (UA) >=500 H Urine Ketones NEGATIVE Urine Blood LARGE H Urine Nitrite NEGATIVE Ur Leukocyte Esterase LARGE H Urine WBC (Auto) >182 Urine RBC (Auto) >182 Plan and Recommendation Plan and Recommendation: Support given to daughter, will follow in a few days to see if patient improves. Discussed her mothers condition and possible changes that may occur with daughter. She is very loving and wants to make sure her her mother does not suffer. Will follow next week, daughter has my cell phone number in case she has questions or needs to talk. Appreciate opportunity to participate in care. - Time Spent with Patient Time spent with patient: 40 to 60 Minutes
[2017-07-09] MEDS: BUPROPION HCL 100 MG TABLET PO SCH (22:05)
[2017-07-10] MEDS: ACETAMINOPHEN 325 MG TABLET PO PRN ×2 (02:50→10:19)
[2017-07-10] MEDS: BUPROPION HCL 100 MG TABLET PO SCH ×3 (05:19→22:32)
[2017-07-10] MEDS: INSULIN LISPRO 100 UNIT/ML 3 ML VIAL SUBCUT SCH ×3 (08:28→18:17)
[2017-07-10] MEDS: INSULIN NPH (ISOPHANE), HUMAN 100 UNIT/ML 3 ML SUBCUT SCH ×2 (08:29→18:17)
[2017-07-10] MEDS ORDERED: NORMAL SALINE 500 ML IV PRN (09:00)
[2017-07-10] MEDS ORDERED: LEVOFLOXACIN 500 MG/D5W RTU 500 MG/100 ML RTUPB IV SCH (09:00)
--- NOTE | 2017-07-10 09:27 | PDOC PROGRESS REPORT ---
Subjective Progress Note for:: 07/10/17 Subjective:: Assume care patient today. Patient suffered a acute/subacute left CVA thrombolytic in July 08. This morning prior to my assessment her orders patient was giving metoprolol, Diovan, and Plavix, aspirin 81 mg, and Lovenox subcu. Initially this morning patient's blood pressure was 150s over 80s. She started developing in the sudden acute change in level of consciousness. Blood pressure dropped 80s over 50s so she was given a stat CT head without contrast. Antihypertensive, anticoagulant and antiplatelet therapy was on hold at this time. Permissive hypertension should be obtained with goal of her blood pressure should not go below 150 systolic and 80 diastolic. Per family patient' s had acute change in mental status this morning lot more lethargic increased weakness on the left side she does she can squeeze her hands on the right side and flank are move her right lower extremity. Patient will need at least 72 hour window from 11:00 and 1215 prior to restarting her antihypertensive medications. Patient is sitting up in the bed eating breakfast today. Urine showed a positive UTI, cultures pending. Patient is alert and oriented 3 she wants to be a full code today. Decreased urine output over the night states they called the on-call provider no new orders were given. Gentle IV hydration today. Reason For Visit: ACUTE CVA Physical Exam Vital Signs: Temp Pulse Resp BP Pulse Ox 97.8 F 88 16 142/65 H 96 07/10/17 07:51 07/10/17 08:00 07/10/17 08:00 07/10/17 08:00 07/10/17 08:00 Intake & Output 07/09/17 07/10/17 07/11/17 06:59 06:59 06:59 Intake Total 489 2382 Output Total 250 275 Balance 239 2107 Weight 101.2 kg 95 kg General appearance: PRESENT: no acute distress, morbidly obese, well-developed, well-nourished Respiratory exam: PRESENT: clear to auscultation chadd. ABSENT: rales, rhonchi, wheezes Cardiovascular exam: PRESENT: irregular rhythm Pulses: PRESENT: normal dorsalis pedis pul GI/Abdominal exam: PRESENT: normal bowel sounds, soft. ABSENT: distended, guarding, mass, organolmegaly, rebound, tenderness Extremities exam: PRESENT: full ROM. ABSENT: calf tenderness, clubbing, pedal edema Musculoskeletal exam: PRESENT: deformity - Left-sided weakness left facial drooping Results Laboratory Results: 07/09/17 15:31 Urine Color YELLOW Urine Appearance TURBID Urine pH 5.0 Ur Specific Peck 1.015 Urine Protein 100 H Urine Glucose (UA) >=500 H Urine Ketones NEGATIVE Urine Blood LARGE H Urine Nitrite NEGATIVE Ur Leukocyte Esterase LARGE H Urine WBC (Auto) >182 Urine RBC (Auto) >182 Impressions: Head MRI 07/08/17 00:00 IMPRESSION: Acute stroke involving the vascular territory of the right posterior cerebral artery. Microvascular ischemic change and atrophy. 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 Carotid Doppler Study 07/09/17 00:00 IMPRESSION: Mildly limited study. No evidence of hemodynamically significant internal carotid stenosis, however. Head CT 07/09/17 00:00 IMPRESSION: Further evolution of the right posterior cerebral artery distribution infarct, without acute superimposed hemorrhage. Since yesterday's CT exam, patient has developed low attenuation in the right thalamus from infarct. No superimposed hemorrhage. EVIDENCE OF ACUTE STROKE: Yes Assessment & Plan - Diagnosis (1) Occipitotemporal infarct, acute Is this a current diagnosis for this admission?: Yes (2) HTN (hypertension), malignant Is this a current diagnosis for this admission?: Yes (3) Obesity (BMI 30.0-34.9) Is this a current diagnosis for this admission?: Yes (4) Obstructive sleep apnea Is this a current diagnosis for this admission?: Yes (5) Coronary artery disease Qualifiers: Coronary Disease-Associated Artery/Lesion type: unspecified vessel or lesion type Associated angina: without angina Is this a current diagnosis for this admission?: Yes (6) UTI (urinary tract infection) Qualifiers: Urinary tract infection type: acute cystitis Hematuria presence: without hematuria Qualified Code(s): N30.00 - Acute cystitis without hematuria Is this a current diagnosis for this admission?: Yes Plan: We will start ceftriaxone IV, will give another 500 cc normal saline bolus start vitamin C thousand milligrams p.o. twice daily - Plan Summary Plan Summary: Continue PT/OT/speech therapy. Patient will need acute rehab pos- thospitalization. Continue to treat infection. Change blood sugars 2 before meals at bedtime
[2017-07-10] MEDS: ASCORBIC ACID 500 MG TABLET PO SCH ×2 (10:18→18:17)
[2017-07-10] MEDS: ASPIRIN 81 MG TABLET, ENT COATED PO SCH (10:19)
[2017-07-10] MEDS: LEVOTHYROXINE SODIUM INJ/PF 0.5 MG SDV IV SCH (10:19)
[2017-07-10] MEDS: CEFTRIAXONE 1 GM/D5W RTU 1 GM/50 ML RTUPB IV SCH (10:20)
[2017-07-10] MEDS: INSULIN LISPRO 100 UNIT/ML 3 ML VIAL SUBCUT PRN ×2 (13:49→18:17)
[2017-07-10] MEDS: KETOROLAC TROMETHAMINE INJ/PF 30 MG/1 ML SDV IV PRN (14:00)
[2017-07-10] MEDS: ATORVASTATIN CALCIUM 80 MG TABLET PO SCH (22:32)
[2017-07-10] MEDS: NYSTATIN TOPICAL POWDER 15 GM TP PRN (23:35)
[2017-07-11] MEDS: BUPROPION HCL 100 MG TABLET PO SCH ×3 (05:06→21:16)
[2017-07-11] MEDS: KETOROLAC TROMETHAMINE INJ/PF 30 MG/1 ML SDV IV PRN ×2 (05:08→19:08)
[2017-07-11] MEDS: INSULIN LISPRO 100 UNIT/ML 3 ML VIAL SUBCUT SCH (09:06)
[2017-07-11] MEDS ORDERED: INSULIN LISPRO 100 UNIT/ML 3 ML VIAL SUBCUT PRN (09:11)
[2017-07-11] MEDS: ASCORBIC ACID 500 MG TABLET PO SCH ×2 (10:34→18:07)
[2017-07-11] MEDS: LEVOTHYROXINE SODIUM INJ/PF 0.5 MG SDV IV SCH (10:34)
[2017-07-11] MEDS: INSULIN NPH (ISOPHANE), HUMAN 100 UNIT/ML 3 ML SUBCUT SCH ×2 (10:34→18:07)
[2017-07-11] MEDS: ASPIRIN 81 MG TABLET, ENT COATED PO SCH (10:34)
[2017-07-11] MEDS: CEFTRIAXONE 1 GM/D5W RTU 1 GM/50 ML RTUPB IV SCH (10:35)
--- NOTE | 2017-07-11 18:41 | PDOC PROGRESS REPORT ---
Subjective Progress Note for:: 07/11/17 Subjective:: Assume care patient today. Patient suffered a acute/subacute left CVA thrombolytic in July 08. This morning prior to my assessment her orders patient was giving metoprolol, Diovan, and Plavix, aspirin 81 mg, and Lovenox subcu. Initially this morning patient's blood pressure was 150s over 80s. She started developing in the sudden acute change in level of consciousness. Blood pressure dropped 80s over 50s so she was given a stat CT head without contrast. Antihypertensive, anticoagulant and antiplatelet therapy was on hold at this time. Permissive hypertension should be obtained with goal of her blood pressure should not go below 150 systolic and 80 diastolic. Per family patient' s had acute change in mental status this morning lot more lethargic increased weakness on the left side she does she can squeeze her hands on the right side and flank are move her right lower extremity. Patient will need at least 72 hour window from 11:00 and 1215 prior to restarting her antihypertensive medications. 07/10/17 Patient is sitting up in the bed eating breakfast today. Urine showed a positive UTI, cultures pending. Patient is alert and oriented 3 she wants to be a full code today. Decreased urine output over the night states they called the on-call provider no new orders were given. Gentle IV hydration today. 07/11/17 Patient seen in bed she is alert following commands complains of a headache no change in mental status noted Reason For Visit: ACUTE CVA Physical Exam Vital Signs: Temp Pulse Resp BP Pulse Ox 98.3 F 83 18 122/49 L 98 07/11/17 08:20 07/11/17 08:20 07/11/17 08:20 07/11/17 08:20 07/11/17 08:20 Intake & Output 07/10/17 07/11/17 07/12/17 06:59 06:59 06:59 Intake Total 2381 1984 Output Total 2049 Balance 2106 Weight 95 kg 100.4 kg General appearance: PRESENT: no acute distress, well-developed, well-nourished Head exam: PRESENT: atraumatic, normocephalic Eye exam: PRESENT: conjunctiva pink, EOMI, PERRLA. ABSENT: scleral icterus Ear exam: PRESENT: normal external ear exam Mouth exam: PRESENT: moist, tongue midline Neck exam: ABSENT: carotid bruit, JVD, lymphadenopathy, thyromegaly Respiratory exam: PRESENT: clear to auscultation chadd. ABSENT: rales, rhonchi, wheezes Cardiovascular exam: PRESENT: RRR. ABSENT: diastolic murmur, rubs, systolic murmur Pulses: PRESENT: normal dorsalis pedis pul Vascular exam: PRESENT: normal capillary refill GI/Abdominal exam: PRESENT: normal bowel sounds, soft. ABSENT: distended, guarding, mass, organolmegaly, rebound, tenderness Rectal exam: PRESENT: deferred Extremities exam: ABSENT: calf tenderness, clubbing, full ROM, pedal edema Musculoskeletal exam: ABSENT: full ROM Neurological exam: PRESENT: alert, awake, oriented to person, CN II-XII grossly intact, aphasic. ABSENT: oriented to place, oriented to time, oriented to situation, motor sensory deficit Psychiatric exam: PRESENT: appropriate affect, normal mood. ABSENT: homicidal ideation, suicidal ideation Focused psych exam: PRESENT: pressured speech Skin exam: PRESENT: dry, intact, warm. ABSENT: cyanosis, rash Results Impressions: Head MRI 07/08/17 00:00 IMPRESSION: Acute stroke involving the vascular territory of the right posterior cerebral artery. Microvascular ischemic change and atrophy. 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 Carotid Doppler Study 07/09/17 00:00 IMPRESSION: Mildly limited study. No evidence of hemodynamically significant internal carotid stenosis, however. Head CT 07/09/17 00:00 IMPRESSION: Further evolution of the right posterior cerebral artery distribution infarct, without acute superimposed hemorrhage. Since yesterday's CT exam, patient has developed low attenuation in the right thalamus from infarct. No superimposed hemorrhage. EVIDENCE OF ACUTE STROKE: Yes Assessment & Plan - Diagnosis (1) Occipitotemporal infarct, acute Is this a current diagnosis for this admission?: Yes Plan: Head CT without contrast 07/09 showed an early subacute infarct in the right posterior cerebral artery distribution darty of the right posterior and inferior temporal lobe, right occipital lobe, and right thalamus. Visualized more today than yesterday via CT scan due to evolution of the infarct. No acute superimposed hemorrhage seen. Further evolution of right posterior cerebral artery infarct without hemorrhage however she did develop low attenuation in the right thalamus from infarct Plan permissive hypertension goal should be systolic blood pressure greater than 150 and greater than 90 hold all BP meds for now Normal saline 500 cc IV bolus for hypotension continue IV fluids at 75 cc an hour N.p.o. hold all p.o. meds until patient is awake alert and oriented Hold Lovenox and Plavix for now. Give rectal aspirin 300 mg daily Palliative care consult done and appreciated regarding goals of care management discussion Echocardiogram and carotid Dopplers were negative Remain a full code for now if patient's condition does not improve family may consider DNR later to be readdressed. Since patient had more pronounced acute CVA today her 4 week window for anticoagulation if she is a candidate should start today. 07/11/17 family notified me today that patient suffered a fall when EMS was trying to transfer her to a stretcher causing the patient to hit back side of her head. They are concerned that this caused her stroke. Patient has had 2 [address] scans are negative for hemorrhage but showed acute/subacute infarct. Family requesting why neurology was seen the patient and was informed that there were no neurologist on board at this time at this facility. (2) HTN (hypertension), malignant Is this a current diagnosis for this admission?: Yes Plan: Prevent hypotension for at least 72 hours. (3) Obesity (BMI 30.0-34.9) Is this a current diagnosis for this admission?: Yes Plan: Slow steady weight loss. Continue monitor blood sugars (4) Obstructive sleep apnea Is this a current diagnosis for this admission?: Yes (5) Coronary artery disease Qualifiers: Coronary Disease-Associated Artery/Lesion type: unspecified vessel or lesion type Associated angina: without angina Is this a current diagnosis for this admission?: Yes Plan: Continue statins, aspirin and Plavix permissive hypertension. Plan to restart patient's home medication (6) UTI (urinary tract infection) Qualifiers: Urinary tract infection type: acute cystitis Hematuria presence: without hematuria Qualified Code(s): N30.00 - Acute cystitis without hematuria Is this a current diagnosis for this admission?: Yes Plan: We will start ceftriaxone IV, will give another 500 cc normal saline bolus start vitamin C thousand milligrams p.o. twice daily suspect this is colonization. Blood cultures negative thus far (7) Diabetes mellitus type 2 in obese Is this a current diagnosis for this admission?: Yes Plan: Hold pre-meals insulin patient is taking decrease amount of p.o. Adjust her sliding scale insulin for better coverage cover continue to monitor closely and adjustments if necessary - Plan Summary Plan Summary: Plan to repeat head CT do not suspect no further findings. Patient is to continue Plavix and aspirin. Unable to anticoagulate at this time due to unknown timing of her acute CVA. Offered to consult neurologist and outlined facility for further ongoing treatment. Suspect that patient injury/trauma prior while being transported here has not presented as any acute findings. Ongoing monitoring encourage. She is a high risk for hemorrhagic bleed up to 2 weeks. inspection supervisor Pilar was informed. Plan therapy to reevaluate patient in the a.m. More likely to be a good candidate for skilled rehab pending bed availability. Will consult neurologists in a[facility] regarding any further preemptive care needed.
--- NOTE | 2017-07-11 18:58 | RADIOLOGY REPORT (SQ) ---
EXAM DESCRIPTION: CT HEAD WITHOUT COMPLETED DATE/TIME: 07/11/2017 6:35 pm REASON FOR STUDY: calli stated patient had fall with EMS COMPARISON: 07/09/2017. 07/09/2017. TECHNIQUE: Axial images acquired through the brain without intravenous contrast. Images reviewed wi th bone, brain and subdural windows. Images stored on PACS. All CT scanners at this facility use dose modulation, iterative reconstruction, and/or weight based d osing when appropriate to reduce radiation dose to as low as reasonably achievable (ALARA). [facility]: Dose Right [facility]: CareDose [facility]: Dose Right [facility]: Teradose 4D [facility]: [employer] RADIATION DOSE: CT Rad equipment meets quality standard of care and radiation dose reduction techniq ues were employed. CTDIvol: 64.6 mGy. DLP: 1034 mGy-cm. mGy. LIMITATIONS: None. FINDINGS: VENTRICLES: Normal size and contour. CEREBRUM: Once again demonstrated is the extensive right infarct involving the right temporal lobe an d right occipital lobe. This also extends into the thalamus. Distribution similar. Generally lower density, better defined, consistent with evolution. No developing hemorrhage, however. Slightly mor e mass effect on the posterior right ventricle. CEREBELLUM: No masses. No hemorrhage. No alteration of density. No evidence for acute infarction. EXTRAAXIAL SPACES: No fluid collections. No masses. ORBITS AND GLOBE: No intra- or extraconal masses. Normal contour of globe without masses. CALVARIUM: No fracture. PARANASAL SINUSES: No fluid or mucosal thickening. SOFT TISSUES: No mass or hematoma. OTHER: No other significant finding. IMPRESSION: 1. Known large right infarct has slightly further evolved. There may be slightly more m ass effect on the posterior aspect of the right lateral ventricle. No developing hemorrhage, however . EVIDENCE OF ACUTE STROKE: NO. COMMENT: Quality ID # [id number]: Final reports with documentation of one or more dose reduction techniques (e.g., Automated exposure control, adjustment of the mA and/or kV according to patient size, use of iterative reconstruction technique) TECHNICAL DOCUMENTATION: JOB ID: [id number]- All Rights Reserved
[2017-07-11] MEDS ORDERED: NITROGLYCERIN 0.4 MG/TAB 25 TAB/BOTTLE SL PRN (19:33)
[2017-07-11] MEDS: ATORVASTATIN CALCIUM 80 MG TABLET PO SCH (21:15)
[2017-07-11] MEDS: ACETAMINOPHEN 325 MG TABLET PO PRN (22:27)
[2017-07-12] MEDS: NYSTATIN TOPICAL POWDER 15 GM TP PRN (02:30)
[2017-07-12] MEDS: BUPROPION HCL 100 MG TABLET PO SCH ×2 (05:38→14:45)
[2017-07-12] MEDS: INSULIN NPH (ISOPHANE), HUMAN 100 UNIT/ML 3 ML SUBCUT SCH ×2 (08:09→18:33)
[2017-07-12] MEDS: ISOSORBIDE MONONITRATE 30 MG TAB.ER.24H PO SCH (08:09)
[2017-07-12] MEDS: KETOROLAC TROMETHAMINE INJ/PF 30 MG/1 ML SDV IV PRN ×3 (08:13→20:30)
[2017-07-12] MEDS ORDERED: LEVOTHYROXINE SODIUM 0.075 MG TABLET PO SCH (10:00)
[2017-07-12] MEDS: VALSARTAN 160 MG TABLET PO SCH (11:09)
[2017-07-12] MEDS: ASCORBIC ACID 500 MG TABLET PO SCH ×2 (11:10→18:32)
[2017-07-12] MEDS: ASPIRIN 81 MG TABLET, ENT COATED PO SCH (11:10)
[2017-07-12] MEDS: METOPROLOL SUCCINATE 50 MG TAB.SR.24H PO SCH (11:10)
[2017-07-12] MEDS: CEFTRIAXONE 1 GM/D5W RTU 1 GM/50 ML RTUPB IV SCH (11:11)
[2017-07-12] MEDS: CLOPIDOGREL BISULFATE 75 MG TABLET PO SCH (11:12)
--- NOTE | 2017-07-12 18:27 | PDOC PROGRESS REPORT ---
Subjective Progress Note for:: 07/12/17 Subjective:: Pt states that her vision in the left eye has worsened. Pt states that otherwise she is doing ok. Reason For Visit: ACUTE CVA Physical Exam Vital Signs: Temp Pulse Resp BP Pulse Ox 98.3 F 85 18 156/96 H 96 07/12/17 07:44 07/12/17 07:44 07/12/17 07:44 07/12/17 07:44 07/12/17 10:00 Intake & Output 07/11/17 07/12/17 07/13/17 06:59 06:59 06:59 Intake Total 1984 260 Output Total 2049 1700 Balance -65 -1440 Weight 100.4 kg 99.1 kg General appearance: PRESENT: no acute distress, well-developed, well-nourished Head exam: PRESENT: atraumatic, normocephalic Eye exam: PRESENT: conjunctiva pink, EOMI. ABSENT: scleral icterus Ear exam: PRESENT: normal external ear exam Mouth exam: PRESENT: moist, tongue midline Neck exam: ABSENT: carotid bruit, JVD, lymphadenopathy, thyromegaly Respiratory exam: PRESENT: clear to auscultation chadd. ABSENT: rales, rhonchi, wheezes Cardiovascular exam: PRESENT: RRR. ABSENT: diastolic murmur, rubs, systolic murmur Pulses: PRESENT: normal dorsalis pedis pul Vascular exam: PRESENT: normal capillary refill GI/Abdominal exam: PRESENT: normal bowel sounds, soft. ABSENT: distended, guarding, mass, organolmegaly, rebound, tenderness Rectal exam: PRESENT: deferred Extremities exam: PRESENT: full ROM. ABSENT: calf tenderness, clubbing, pedal edema Neurological exam: PRESENT: alert, oriented to person, oriented to place, oriented to time, oriented to situation, other - + decrease vision in Left eye pt not able to talk if an object is moving told her, Pt left and right lower leg strength is a 5/5, + right and left hand drip is 5/5, bilateral shoulder shrug intact. Psychiatric exam: PRESENT: appropriate affect, normal mood Skin exam: PRESENT: dry, intact, warm. ABSENT: cyanosis, rash Results Impressions: Head MRI 07/08/17 00:00 IMPRESSION: Acute stroke involving the vascular territory of the right posterior cerebral artery. Microvascular ischemic change and atrophy. EVIDENCE OF ACUTE STROKE: Yes RIGHT DERMATOLOGY SALES REPRESENTATIVE Chest X-Ray 07/08/17 13:41 IMPRESSION: NO ACUTE RADIOGRAPHIC FINDING IN THE CHEST. Carotid Doppler Study 07/09/17 00:00 IMPRESSION: Mildly limited study. No evidence of hemodynamically significant internal carotid stenosis, however. Head CT 07/11/17 00:00 IMPRESSION: 1. Known large right infarct has slightly further evolved. There may be slightly more mass effect on the posterior aspect of the right lateral ventricle. No developing hemorrhage, however. EVIDENCE OF ACUTE STROKE: NO. Assessment & Plan - Diagnosis (1) CVA (cerebral vascular accident) Qualifiers: Laterality of affected vessel: right Is this a current diagnosis for this admission?: Yes Plan: Acute/subacute Extensive Right Infarct Involving the right temporal lobe and right occipital lobe with Poor vision in Left eye in setting of Atrial fibrillation: Stroke most likely secondary to A. fib but will check CT of Brain to make sure pt does not have high grade stenosis. 2 D echo did not demonstrate evidence of thrombosis. Carotid U/s demonstrated no evidence of significant narrowing. Will continue ASA and Plavix. Pt reports that she fall 2-3 times a month at home. This most likely is why pt is not on full anticoagulation. Will contact family tomorrow. (2) Atrial fibrillation Qualifiers: Atrial fibrillation type: chronic Qualified Code(s): I48.2 - Chronic atrial fibrillation Is this a current diagnosis for this admission?: Yes Plan: Will continue ASA and Plavix. Will confirm that the reason why pt is not on full anticoagulation is due to falls. (3) HTN (hypertension), malignant Is this a current diagnosis for this admission?: Yes Plan: Pt's home medications were restarted today. Blood pressure should improve. If not will adjust medications. (4) Obesity (BMI 30.0-34.9) Is this a current diagnosis for this admission?: Yes Plan: Discussed that importance of dietary changes. (5) Obstructive sleep apnea Is this a current diagnosis for this admission?: Yes Plan: Will continue NC. (6) Diabetes mellitus type 2 in obese Is this a current diagnosis for this admission?: Yes Plan: SSI (7) Ambulatory dysfunction Is this a current diagnosis for this admission?: Yes Plan: PT/OT evaluate and treatment. (8) Coronary artery disease Qualifiers: Coronary Disease-Associated Artery/Lesion type: unspecified vessel or lesion type Associated angina: without angina Is this a current diagnosis for this admission?: Yes Plan: S/P CABG: Will continue medication. (9) Encephalopathy Is this a current diagnosis for this admission?: Yes Plan: Acute Metabolic Encephalopathy Secondary to Stroke: Resolved. (10) Hypothyroidism Qualifiers: Hypothyroidism type: unspecified Qualified Code(s): E03.9 - Hypothyroidism , unspecified Is this a current diagnosis for this admission?: Yes Plan: Continue synthroid. (11) Hyponatremia Is this a current diagnosis for this admission?: Yes Plan: Will check BMP in am. - Time Time Spent with patient: 15-24 minutes Anticipated discharge: Acute Rehab
--- NOTE | 2017-07-12 21:21 | RADIOLOGY REPORT (SQ) ---
EXAM DESCRIPTION: CTA HEAD COMPLETED DATE/TIME: 07/12/2017 8:57 pm REASON FOR STUDY: CVA; Evaluate [place] COMPARISON: None. TECHNIQUE: Post IV contrast scanning, thin section axial imaging through the brain to evaluate the a rterial structures. Source and MIP images are saved and reviewed on PACS. Advanced 3D imaging as volume-rendering, MIPs, SSD performed? yes All CT scanners at this facility use dose modulation, iterative reconstruction, and/or weight based d osing when appropriate to reduce radiation dose to as low as reasonably achievable (ALARA). [facility]: Dose Right [facility]: CareDose [facility]: Dose Right [facility]: Teradose 4D [facility]: [employer] CONTRAST TYPE AND DOSE: contrast/concentration: Isovue 370.00 mg/ml; Total Contrast Delivered: 70.0 ml; Total Saline Delivered: 55.0 ml RENAL FUNCTION: BUN 16 creatinine 0.92. LIMITATIONS: None. FINDINGS: [place]: Dense calcifications limit evaluation of the internal carotid arteries. The anterior middle cerebral arteries are patent. The left posterior cerebral artery appears patent . The proximal right posterior cerebral artery is not clearly visualized. Cannot exclude occlusion or stenosis. POSTERIOR CIRCULATION: The distal vertebral arteries are patent as is the basilar artery. No aneurysm . BRAIN: No gross enhancing lesions as visualized. The superior cerebral hemispheres are not included in the field of view. BONES: Intact as visualized. SINUSES: No fluid or mucosal thickening. OTHER: No other significant finding. IMPRESSION: LIMITED STUDY. THE RIGHT POSTERIOR CEREBRAL ARTERY IS NOT CLEARLY VISUALIZED AND CANNOT EXCLUDE PROXIMAL OCCLUSION OR STENOSIS. MRA OF THE BRAIN MAY PROVIDE BETTER VISUALIZATION IF CLINIC ALLY WARRANTED. TECHNICAL DOCUMENTATION: JOB ID: [id number] Quality ID # [id number]: Final reports with documentation of one or more dose reduction techniques (e.g., Au tomated exposure control, adjustment of the mA and/or kV according to patient size, use of iterative reconstruction technique) 2010 [employer]- All Rights Reserved
[2017-07-13] MEDS: BUPROPION HCL 100 MG TABLET PO SCH ×4 (05:20→23:12)
[2017-07-13] MEDS: KETOROLAC TROMETHAMINE INJ/PF 30 MG/1 ML SDV IV PRN ×2 (05:26→18:46)
[2017-07-13] MEDS: ATORVASTATIN CALCIUM 80 MG TABLET PO SCH ×2 (05:27→23:12)
[2017-07-13] MEDS: LEVOTHYROXINE SODIUM 0.075 MG TABLET PO SCH (05:28)
[2017-07-13 05:38] LABS: ABSOLUTE EOSINOPHILS # (AUTO) 0.1 10^3/uL (0.0-0.6); ABSOLUTE MONOCYTES (AUTO) 0.8 10^3/uL (0.1-1.4); ABSOLUTE NEUT (AUTO) 9.9 10^3/uL (1.7-8.2); BASOPHILS % (AUTO) 0.2 % (0-2); EOSINOPHILS % (AUTO) 1.1 % (0-6); HEMATOCRIT 42.5 % (36.0-47.0); HEMOGLOBIN 14.7 g/dL (12.0-15.5); HGB HCT DIFFERENCE 1.6; LYMPHOCYTES % (AUTO) 15.3 % (13-45); MEAN CORPUSCULAR HEMOGLOBIN 30.1 pg (27.0-33.4); MEAN CORPUSCULAR HGB CONC 34.6 g/dL (32.0-36.0); MEAN CORPUSCULAR VOLUME 87 fl (80-97); MONOCYTES % (AUTO) 6.5 % (3-13); RED BLOOD COUNT 4.89 10^6/uL (3.72-5.28); RED CELL DISTRIBUTION WIDTH 14.3 % (11.5-14.0); SEGMENTED NEUTROPHILS % (AUTO) 76.9 % (42-78); WHITE BLOOD COUNT 12.9 10^3/uL (4.0-10.5)
[2017-07-13 05:42] LABS: ANION GAP 10 (5-19); BLOOD UREA NITROGEN 18 mg/dL (7-20); CALCIUM 10.1 mg/dL (8.4-10.2); CARBON DIOXIDE 29 mmol/L (22-30); CHLORIDE 100 mmol/L (98-107); CREATININE RESULT 0.89 mg/dL (0.52-1.25); GLUCOSE 75 mg/dL (75-110); POTASSIUM 3.5 mmol/L (3.6-5.0)
[2017-07-13] MEDS: INSULIN NPH (ISOPHANE), HUMAN 100 UNIT/ML 3 ML SUBCUT SCH ×2 (07:51→16:11)
[2017-07-13] MEDS: ISOSORBIDE MONONITRATE 30 MG TAB.ER.24H PO SCH (07:55)
[2017-07-13] MEDS: VALSARTAN 160 MG TABLET PO SCH (07:55)
[2017-07-13] MEDS: ASCORBIC ACID 500 MG TABLET PO SCH ×2 (11:06→17:01)
[2017-07-13] MEDS: CEFTRIAXONE 1 GM/D5W RTU 1 GM/50 ML RTUPB IV SCH (11:06)
[2017-07-13] MEDS: CLOPIDOGREL BISULFATE 75 MG TABLET PO SCH (11:07)
[2017-07-13] MEDS: METOPROLOL SUCCINATE 50 MG TAB.SR.24H PO SCH (11:07)
[2017-07-13] MEDS: ASPIRIN 81 MG TABLET, ENT COATED PO SCH (11:07)
--- NOTE | 2017-07-13 12:54 | PDOC PROGRESS REPORT ---
Subjective Progress Note for:: 07/13/17 Subjective:: Pt states that she is doing ok. Pt states that she wants to be Full code. Pt states that she does fall a lot at home at least 3-4 times a month. Spoke to pt 's Daughter who state that pt is not consistent with taking medication. Daughter is concerned about pt's safety at home. Reason For Visit: ACUTE CVA Physical Exam Vital Signs: Temp Pulse Resp BP Pulse Ox 97.4 F 64 18 183/83 H 100 07/13/17 07:19 07/13/17 07:19 07/13/17 07:19 07/13/17 07:19 07/13/17 07:19 Intake & Output 07/12/17 07/13/17 07/14/17 06:59 06:59 06:59 Intake Total 260 967 Output Total 1700 1200 Balance -1440 -233 Weight 99.1 kg 99.1 kg General appearance: PRESENT: no acute distress, well-developed, well-nourished Head exam: PRESENT: atraumatic, normocephalic Eye exam: PRESENT: conjunctiva pink, EOMI. ABSENT: scleral icterus Ear exam: PRESENT: normal external ear exam Mouth exam: PRESENT: moist, tongue midline Neck exam: ABSENT: carotid bruit, JVD, lymphadenopathy, thyromegaly Respiratory exam: PRESENT: clear to auscultation chadd. ABSENT: rales, rhonchi, wheezes Cardiovascular exam: PRESENT: RRR. ABSENT: diastolic murmur, rubs, systolic murmur Pulses: PRESENT: normal dorsalis pedis pul Vascular exam: PRESENT: normal capillary refill GI/Abdominal exam: PRESENT: normal bowel sounds, soft. ABSENT: distended, guarding, mass, organolmegaly, rebound, tenderness Rectal exam: PRESENT: deferred Extremities exam: PRESENT: full ROM. ABSENT: calf tenderness, clubbing, pedal edema Musculoskeletal exam: PRESENT: full ROM Neurological exam: PRESENT: alert, awake, oriented to person, oriented to place , oriented to time, oriented to situation, CN II-XII grossly intact. ABSENT: motor sensory deficit Psychiatric exam: PRESENT: appropriate affect, normal mood. ABSENT: homicidal ideation, suicidal ideation Skin exam: PRESENT: dry, intact, warm. ABSENT: cyanosis, rash Results Laboratory Results: 07/13/17 04:42 07/13/17 04:42 07/13/17 07/13/17 04:42 04:42 WBC 12.9 H RBC 4.89 Hgb 14.7 Hct 42.5 MCV 87 MCH 30.1 MCHC 34.6 RDW 14.3 H Plt Count 302 Seg Neutrophils % 76.9 Lymphocytes % 15.3 Monocytes % 6.5 Eosinophils % 1.1 Basophils % 0.2 Absolute Neutrophils 9.9 H Absolute Lymphocytes 2.0 Absolute Monocytes 0.8 Absolute Eosinophils 0.1 Absolute Basophils 0.0 Sodium 139.0 Potassium 3.5 L Chloride 100 Carbon Dioxide 29 Anion Gap 10 BUN 18 Creatinine 0.89 Est GFR ( Amer) > 60 Est GFR (Non-Af Amer) > 60 Glucose 75 Calcium 10.1 07/09/17 15:31 Catheterized Urine Urine Culture - Final Enterococcus Faecalis(Group D) Impressions: Head MRI 07/08/17 00:00 IMPRESSION: Acute stroke involving the vascular territory of the right posterior cerebral artery. Microvascular ischemic change and atrophy. EVIDENCE OF ACUTE STROKE: Yes RIGHT LACTATION SPECIALIST Chest X-Ray 07/08/17 13:41 IMPRESSION: NO ACUTE RADIOGRAPHIC FINDING IN THE CHEST. Carotid Doppler Study 07/09/17 00:00 IMPRESSION: Mildly limited study. No evidence of hemodynamically significant internal carotid stenosis, however. Head CT 07/11/17 00:00 IMPRESSION: 1. Known large right infarct has slightly further evolved. There may be slightly more mass effect on the posterior aspect of the right lateral ventricle. No developing hemorrhage, however. EVIDENCE OF ACUTE STROKE: NO. Head CTA 07/12/17 00:00 IMPRESSION: LIMITED STUDY. THE RIGHT POSTERIOR CEREBRAL ARTERY IS NOT CLEARLY VISUALIZED AND CANNOT EXCLUDE PROXIMAL OCCLUSION OR STENOSIS. MRA OF THE BRAIN MAY PROVIDE BETTER VISUALIZATION IF CLINICALLY WARRANTED. Assessment & Plan - Diagnosis (1) CVA (cerebral vascular accident) Qualifiers: Laterality of affected vessel: right Is this a current diagnosis for this admission?: Yes Plan: Acute/subacute Extensive Right Infarct Involving the right temporal lobe and right occipital lobe with Poor vision in Left eye in setting of Atrial fibrillation: Stroke most likely secondary to A. fib. Pt's CTA did not demonstrate evidence of high grade stenosis. 2 D echo did not demonstrate evidence of thrombosis. Daughter states that pt does fall a lot at home at least 3-4 times a month. Daughter agrees with aspirin and plavix for now due to pt's frequent falls. Daughter states that if pt agrees to go to a [facility] she would be more comfortable with full anticoagulation because her risk for falls would be decreased. Carotid U/s demonstrated no evidence of significant narrowing. Will continue ASA and Plavix. (2) Atrial fibrillation Qualifiers: Atrial fibrillation type: chronic Qualified Code(s): I48.2 - Chronic atrial fibrillation Is this a current diagnosis for this admission?: Yes Plan: Will continue ASA and Plavix. Daughter states that pt falls a lot at home. (3) HTN (hypertension), malignant Is this a current diagnosis for this admission?: Yes Plan: Will add Norvasc to blood pressure regimen. Will continue to monitor. (4) Obesity (BMI 30.0-34.9) Is this a current diagnosis for this admission?: Yes Plan: Discussed that importance of dietary changes. (5) Obstructive sleep apnea Is this a current diagnosis for this admission?: Yes Plan: Will continue NC. (6) Diabetes mellitus type 2 in obese Is this a current diagnosis for this admission?: Yes Plan: Will decrease NPH to 75 units BID due to Hypoglycemia. (7) Ambulatory dysfunction Is this a current diagnosis for this admission?: Yes Plan: PT/OT evaluate and treatment. (8) Coronary artery disease Qualifiers: Coronary Disease-Associated Artery/Lesion type: unspecified vessel or lesion type Associated angina: without angina Is this a current diagnosis for this admission?: Yes Plan: S/P CABG: Will continue medication. (9) Encephalopathy Is this a current diagnosis for this admission?: Yes Plan: Acute Metabolic Encephalopathy Secondary to Stroke: Resolved. (10) Hypothyroidism Qualifiers: Hypothyroidism type: unspecified Qualified Code(s): E03.9 - Hypothyroidism , unspecified Is this a current diagnosis for this admission?: Yes Plan: Continue synthroid. (11) Hyponatremia Is this a current diagnosis for this admission?: Yes Plan: Resolved. (12) Hypoglycemia Is this a current diagnosis for this admission?: Yes Plan: Will decrease NPH to 75 units SC BID. - Time Time Spent with patient: 15-24 minutes Anticipated discharge: Home - Spoke to pt's daughter today about pt's condition. Pt will need rehab most likely.
[2017-07-13] MEDS: AMPICILLIN TRIHYD 500 MG CAPSULE PO SCH ×2 (17:01→23:14)
[2017-07-13] MEDS ORDERED: MAG HYDROX/AL HYDROX/SIMETH SUSP 30 ML UDCUP PO ONE (21:00)
[2017-07-13 21:36] LABS: ALANINE AMINOTRANSFERASE 62 U/L (9-52); ALBUMIN 2.8 g/dL (3.5-5.0); ALKALINE PHOSPHATASE 255 U/L (38-126); ANION GAP 10 (5-19); ASPARTATE AMINO TRANSFERASE 91 U/L (14-36); BILIRUBIN,DIRECT 0.1 mg/dL (0.0-0.4); BILIRUBIN,TOTAL 0.3 mg/dL (0.2-1.3); BLOOD UREA NITROGEN 15 mg/dL (7-20); CALCIUM 9.1 mg/dL (8.4-10.2); CARBON DIOXIDE 24 mmol/L (22-30); CHLORIDE 101 mmol/L (98-107); CREATININE RESULT 0.79 mg/dL (0.52-1.25); GLUCOSE 80 mg/dL (75-110); POTASSIUM 3.1 mmol/L (3.6-5.0); SODIUM 135.4 mmol/L (137-145); TOTAL PROTEIN 5.5 g/dL (6.3-8.2)
[2017-07-14] MEDS: POTASSI CL 20 MEQ/50 ML RIDER 20 MEQ/50 ML RTUPB IV SCH ×2 (01:13→03:26)
[2017-07-14] MEDS: LEVOTHYROXINE SODIUM 0.075 MG TABLET PO SCH (05:26)
[2017-07-14] MEDS: BUPROPION HCL 100 MG TABLET PO SCH ×3 (05:26→21:33)
[2017-07-14] MEDS: AMPICILLIN TRIHYD 500 MG CAPSULE PO SCH ×4 (05:27→23:31)
[2017-07-14 06:32] LABS: ABSOLUTE BASOPHILS # (AUTO) 0.1 10^3/uL (0.0-0.2); ABSOLUTE EOSINOPHILS # (AUTO) 0.9 10^3/uL (0.0-0.6); ABSOLUTE NEUT (AUTO) 9.7 10^3/uL (1.7-8.2); BASOPHILS % (AUTO) 0.4 % (0-2); EOSINOPHILS % (AUTO) 6.4 % (0-6); HEMATOCRIT 40.3 % (36.0-47.0); HEMOGLOBIN 13.9 g/dL (12.0-15.5); HGB HCT DIFFERENCE 1.4; LYMPHOCYTES % (AUTO) 14.9 % (13-45); MEAN CORPUSCULAR HEMOGLOBIN 30.2 pg (27.0-33.4); MEAN CORPUSCULAR HGB CONC 34.5 g/dL (32.0-36.0); MEAN CORPUSCULAR VOLUME 88 fl (80-97); MONOCYTES % (AUTO) 7.1 % (3-13); RED CELL DISTRIBUTION WIDTH 14.5 % (11.5-14.0); SEGMENTED NEUTROPHILS % (AUTO) 71.2 % (42-78); WHITE BLOOD COUNT 13.6 10^3/uL (4.0-10.5)
[2017-07-14 06:49] LABS: ANION GAP 11 (5-19); BLOOD UREA NITROGEN 14 mg/dL (7-20); CALCIUM 9.5 mg/dL (8.4-10.2); CARBON DIOXIDE 28 mmol/L (22-30); CHLORIDE 100 mmol/L (98-107); CREATININE RESULT 0.85 mg/dL (0.52-1.25); GLUCOSE 88 mg/dL (75-110); POTASSIUM 3.7 mmol/L (3.6-5.0)
[2017-07-14] MEDS: INSULIN NPH (ISOPHANE), HUMAN 100 UNIT/ML 3 ML SUBCUT SCH (08:14)
[2017-07-14] MEDS: ISOSORBIDE MONONITRATE 30 MG TAB.ER.24H PO SCH (08:14)
[2017-07-14] MEDS: ASPIRIN 81 MG TABLET, ENT COATED PO SCH (09:23)
[2017-07-14] MEDS: METOPROLOL SUCCINATE 50 MG TAB.SR.24H PO SCH (09:24)
[2017-07-14] MEDS: AMLODIPINE BESYLATE 10 MG TABLET PO SCH (09:24)
[2017-07-14] MEDS: ASCORBIC ACID 500 MG TABLET PO SCH ×2 (09:25→17:52)
[2017-07-14] MEDS: CLOPIDOGREL BISULFATE 75 MG TABLET PO SCH (09:25)
[2017-07-14] MEDS: VALSARTAN 160 MG TABLET PO SCH (09:25)
[2017-07-14] MEDS ORDERED: ISOSORBIDE MONONITRATE 30 MG TAB.ER.24H PO ONE (11:00)
--- NOTE | 2017-07-14 11:02 | PDOC PROGRESS REPORT ---
Subjective Progress Note for:: 07/14/17 Subjective:: Pt states that she is doing pretty good. Spoke with daughter who states that pt has been confused since stroke. Daughter states that she was not eating much food that she brings in from outside the house. Nursing states that pt is eating her meals. Reason For Visit: ACUTE CVA Physical Exam Vital Signs: Temp Pulse Resp BP Pulse Ox 98.5 F 71 16 160/75 H 98 07/14/17 08:28 07/14/17 08:28 07/14/17 08:28 07/14/17 08:28 07/14/17 08:28 Intake & Output 07/13/17 07/14/17 07/15/17 06:59 06:59 06:59 Intake Total 967 1359 Output Total 1200 2150 Balance -233 -791 Weight 99.1 kg 100.4 kg General appearance: PRESENT: no acute distress, well-developed, well-nourished Head exam: PRESENT: atraumatic, normocephalic Eye exam: PRESENT: conjunctiva pink, EOMI. ABSENT: scleral icterus Ear exam: PRESENT: normal external ear exam Mouth exam: PRESENT: moist, tongue midline Neck exam: ABSENT: carotid bruit, JVD, lymphadenopathy, thyromegaly Respiratory exam: PRESENT: clear to auscultation chadd. ABSENT: rales, rhonchi, wheezes Cardiovascular exam: PRESENT: irregular rhythm. ABSENT: diastolic murmur, rubs , systolic murmur Pulses: PRESENT: normal dorsalis pedis pul Vascular exam: PRESENT: normal capillary refill GI/Abdominal exam: PRESENT: normal bowel sounds, soft. ABSENT: distended, guarding, mass, organolmegaly, rebound, tenderness Rectal exam: PRESENT: deferred Extremities exam: PRESENT: full ROM. ABSENT: calf tenderness, clubbing, pedal edema Musculoskeletal exam: PRESENT: other - Left upper 4/5 strength, Left lower ext strength 4/5. Neurological exam: PRESENT: alert, awake, oriented to person, oriented to place , oriented to time, oriented to situation, CN II-XII grossly intact. ABSENT: motor sensory deficit Psychiatric exam: PRESENT: appropriate affect, normal mood. ABSENT: homicidal ideation, suicidal ideation Skin exam: PRESENT: dry, intact, warm. ABSENT: cyanosis, rash Results Laboratory Results: 07/14/17 06:16 07/14/17 06:16 07/13/17 07/13/17 07/14/17 20:55 20:55 06:16 WBC 13.6 H RBC 4.60 Hgb 13.9 Hct 40.3 MCV 88 MCH 30.2 MCHC 34.5 RDW 14.5 H Plt Count 324 Seg Neutrophils % 71.2 Lymphocytes % 14.9 Monocytes % 7.1 Eosinophils % 6.4 H Basophils % 0.4 Absolute Neutrophils 9.7 H Absolute Lymphocytes 2.0 Absolute Monocytes 1.0 Absolute Eosinophils 0.9 H Absolute Basophils 0.1 Sodium 135.4 L Potassium 3.1 L Chloride 101 Carbon Dioxide 24 Anion Gap 10 BUN 15 Creatinine 0.79 Est GFR ( Amer) > 60 Est GFR (Non-Af Amer) > 60 Glucose 80 Calcium 9.1 Magnesium 1.7 Total Bilirubin 0.3 AST 91 H ALT 62 H Alkaline Phosphatase 255 H Total Protein 5.5 L Albumin 2.8 L 07/14/17 06:16 WBC RBC Hgb Hct MCV MCH MCHC RDW Plt Count Seg Neutrophils % Lymphocytes % Monocytes % Eosinophils % Basophils % Absolute Neutrophils Absolute Lymphocytes Absolute Monocytes Absolute Eosinophils Absolute Basophils Sodium 139.0 Potassium 3.7 Chloride 100 Carbon Dioxide 28 Anion Gap 11 BUN 14 Creatinine 0.85 Est GFR ( Amer) > 60 Est GFR (Non-Af Amer) > 60 Glucose 88 Calcium 9.5 Magnesium Total Bilirubin AST ALT Alkaline Phosphatase Total Protein Albumin 07/08/17 17:52 Blood Blood Culture - Final NO GROWTH IN 5 DAYS 07/08/17 17:40 Blood Blood Culture - Final NO GROWTH IN 5 DAYS 07/09/17 15:31 Catheterized Urine Urine Culture - Final Enterococcus Faecalis(Group D) Impressions: Head MRI 07/08/17 00:00 IMPRESSION: Acute stroke involving the vascular territory of the right posterior cerebral artery. Microvascular ischemic change and atrophy. EVIDENCE OF ACUTE STROKE: Yes RIGHT MASONRY CONTRACTOR Chest X-Ray 07/08/17 13:41 IMPRESSION: NO ACUTE RADIOGRAPHIC FINDING IN THE CHEST. Carotid Doppler Study 07/09/17 00:00 IMPRESSION: Mildly limited study. No evidence of hemodynamically significant internal carotid stenosis, however. Head CT 07/11/17 00:00 IMPRESSION: 1. Known large right infarct has slightly further evolved. There may be slightly more mass effect on the posterior aspect of the right lateral ventricle. No developing hemorrhage, however. EVIDENCE OF ACUTE STROKE: NO. Head CTA 07/12/17 00:00 IMPRESSION: LIMITED STUDY. THE RIGHT POSTERIOR CEREBRAL ARTERY IS NOT CLEARLY VISUALIZED AND CANNOT EXCLUDE PROXIMAL OCCLUSION OR STENOSIS. MRA OF THE BRAIN MAY PROVIDE BETTER VISUALIZATION IF CLINICALLY WARRANTED. Assessment & Plan - Diagnosis (1) CVA (cerebral vascular accident) Qualifiers: Laterality of affected vessel: right Is this a current diagnosis for this admission?: Yes Plan: Acute/subacute Extensive Right Infarct Involving the right temporal lobe and right occipital lobe with Poor vision in Left eye in setting of Atrial fibrillation: Stroke most likely secondary to A. fib. Pt's CTA did not demonstrate evidence of high grade stenosis. 2 D echo did not demonstrate evidence of thrombosis. Daughter states that pt does fall a lot at home at least 3-4 times a month. Daughter agrees with aspirin and plavix for now due to pt's frequent falls. Daughter states that if pt agrees to go to a longterm she would be more comfortable with full anticoagulation because her risk for falls would be decreased. Carotid U/s demonstrated no evidence of significant narrowing. Will continue ASA and Plavix. (2) Hypokalemia Is this a current diagnosis for this admission?: Yes Plan: Pt given Potassium replacement. (3) Atrial fibrillation Qualifiers: Atrial fibrillation type: chronic Qualified Code(s): I48.2 - Chronic atrial fibrillation Is this a current diagnosis for this admission?: Yes Plan: Will continue ASA and Plavix. Daughter states that pt falls a lot at home. (4) HTN (hypertension), malignant Is this a current diagnosis for this admission?: Yes Plan: Will increase Imdur 60 mg PO Qdaily. Will add Hydralazine PRN (5) Obesity (BMI 30.0-34.9) Is this a current diagnosis for this admission?: Yes Plan: Discussed that importance of dietary changes. (6) Obstructive sleep apnea Is this a current diagnosis for this admission?: Yes Plan: Will continue NC. (7) Diabetes mellitus type 2 in obese Is this a current diagnosis for this admission?: Yes Plan: Will discontinue NPH 75 mg SC BID due to hypoglycemia. (8) Ambulatory dysfunction Is this a current diagnosis for this admission?: Yes Plan: PT/OT evaluate and treatment. (9) Coronary artery disease Qualifiers: Coronary Disease-Associated Artery/Lesion type: unspecified vessel or lesion type Associated angina: without angina Is this a current diagnosis for this admission?: Yes Plan: S/P CABG: Will continue medication. (10) Encephalopathy Is this a current diagnosis for this admission?: Yes Plan: Acute Metabolic Encephalopathy Secondary to Stroke: Resolved. (11) Hypothyroidism Qualifiers: Hypothyroidism type: unspecified Qualified Code(s): E03.9 - Hypothyroidism , unspecified Is this a current diagnosis for this admission?: Yes Plan: Continue synthroid. (12) Hyponatremia Is this a current diagnosis for this admission?: Yes Plan: Resolved. (13) Hypoglycemia Is this a current diagnosis for this admission?: Yes Plan: Will discontinue NPH - Time Time Spent with patient: 15-24 minutes Anticipated discharge: Home, Other - Acute Rehab. Pt will transfer to [facility] tomorrow.
[2017-07-14] MEDS: HYDRALAZINE HCL 25 MG TABLET PO SCH ×2 (13:40→21:32)
[2017-07-14] MEDS: INSULIN LISPRO 100 UNIT/ML 3 ML VIAL SUBCUT PRN ×2 (13:41→17:52)
[2017-07-14] MEDS ORDERED: INSULIN NPH (ISOPHANE), HUMAN 100 UNIT/ML 3 ML SUBCUT ONE (19:00)
[2017-07-14] MEDS: ATORVASTATIN CALCIUM 80 MG TABLET PO SCH (21:32)
--- NOTE | 2017-07-14 21:48 | Progress Note ---
Provider Note Provider Note: Palliative Care follow up visit 07/14/17 12:45pm Patient admitted with CVA last week. She has improved over the past several days and plans are made for her to go to [facility] for rehab. According to her daughter, patient lives alone, although daughter is there often to help her. Rehab will help her realize her best potential for recovery with less danger of being alone, however with her fall history, I do agree with daughter that anticoagulation may be more risk than benefit, depending on her condition at time to returning home. I had spoken with Mrs. Moore's daughter at length last week. She was hopeful that patient would improve and once B/P stabilized it appears that she did get much better and now is awake and able to eat and drink per documentation. Her albumin has dropped to 2.8 from 3.8 last week. She has PT ordered but I could not review PT notes to check progress. According to progress notes, the patient was asked about being a full code vs the DNR she had ordered at the time. The DNR was reversed to full code after this conversation with her, so I assume she was alert and oriented at the time. When she is transferrred to SNF, they will ask again about advance directives for the doctor there to order. Daughter was not at bedside at the time of my visit. Patient was asleep. She awoke and smiled, denied pain, but did not continue to converse with me. I did not see much spontaneous movement. Breathing was clear and unlabored. No evidence of pain but patient very sleepy. I will see tomorrow if patient has not been transferred by time of my visit. Daughter has my number, left note for her to call me. . P
[2017-07-15] MEDS: HYDRALAZINE HCL 25 MG TABLET PO SCH ×2 (05:05→14:09)
[2017-07-15] MEDS: LEVOTHYROXINE SODIUM 0.075 MG TABLET PO SCH (05:05)
[2017-07-15] MEDS: BUPROPION HCL 100 MG TABLET PO SCH ×2 (05:05→14:09)
[2017-07-15] MEDS: AMPICILLIN TRIHYD 500 MG CAPSULE PO SCH ×2 (05:05→12:54)
[2017-07-15] MEDS ORDERED: ISOSORBIDE MONONITRATE 30 MG TAB.ER.24H PO SCH (08:00)
[2017-07-15] MEDS ORDERED: INSULIN NPH (ISOPHANE), HUMAN 100 UNIT/ML 3 ML SUBCUT SCH ×2 (08:00→16:00)
[2017-07-15] MEDS ORDERED: HYDRALAZINE HCL 50 MG TABLET PO ONE (09:03)
--- NOTE | 2017-07-15 09:25 | PDOC DISCHARGE SUMMARY ---
General - Admit/Disc Date/PCP Admission Date/Primary Care Provider: 07/08/17 15:43 Discharge Date: 07/15/17 - Discharge Diagnosis (1) CVA (cerebral vascular accident) Is this a current diagnosis for this admission?: Yes Summary: Acute/Subacute Extensive Right Infarct Involving Right Temproal Lobe and Right Occipital lobe in setting of Atrial Fibrillation: Patient was admitted to our facility due to changes in patient's mentation. Patient was found to have had a right-sided stroke involving the right temporal lobe and occipital lobe. Daughter and patient confirms that she has a fall history, patient reports that she falls at least 3-4 times a month. Patient was on aspirin and Plavix at the time of admission and patient's being discharged on aspirin and Plavix due to family's hope that patient will be able to return home and live independent. Due to patient's already pre-existing fall history discussed with family and patient the risk for intracranial bleed if patient was to fall and strike head. At current time of discharge family was in agreement with patient continuing on aspirin and Plavix. (2) Hypokalemia Is this a current diagnosis for this admission?: Yes Summary: Resolved. (3) Atrial fibrillation Is this a current diagnosis for this admission?: Yes Summary: We will continue patient's current medications along with aspirin and Plavix. (4) HTN (hypertension), malignant Is this a current diagnosis for this admission?: Yes Summary: Patient's blood pressure better controlled. Recommend continue monitoring. Patient's blood pressure may need to be adjusted. (5) Obesity (BMI 30.0-34.9) Is this a current diagnosis for this admission?: Yes Summary: Discussed the importance of dietary changes in order to lose weight. (6) Obstructive sleep apnea Is this a current diagnosis for this admission?: Yes Summary: Patient noncompliant with CPAP/BiPAP (7) Diabetes mellitus type 2 in obese Is this a current diagnosis for this admission?: Yes Summary: She is insulin regimen had to be de-escalated due to patient diet being more controlled. Patient will need sliding scale periodically however NPH was decreased to 40 units at bedtime and 60 units in the morning (8) Ambulatory dysfunction Is this a current diagnosis for this admission?: Yes Summary: Patient has chronic history of falling. Patient will need to go to rehab for intense therapy to see if patient will be able to live independently again. (9) Coronary artery disease Is this a current diagnosis for this admission?: Yes Summary: Stable (10) Encephalopathy Is this a current diagnosis for this admission?: Yes Summary: Acute metabolic encephalopathy in setting of stroke: Resolving. (11) Hypothyroidism Is this a current diagnosis for this admission?: Yes Summary: We will continue Synthroid (12) Hyponatremia Is this a current diagnosis for this admission?: Yes Summary: Resolved (13) Hypoglycemia Is this a current diagnosis for this admission?: Yes Summary: Resolved - Additional Information Discharge Diet: Cardiac, Diabetic Discharge Activity: Other - Ambulate with Assistance. Prescriptions: Hydralazine HCl 75 mg PO TID #90 tablet Home Medications: Aspirin [Ecotrin 81 mg EC Tablet] 81 mg PO DAILY 02/01/17 Atorvastatin Calcium [Lipitor 80 mg Tablet] 80 mg PO QHS 02/01/17 Bupropion HCl [Wellbutrin Xl 300mg 24hr Tablet] 300 mg PO DAILY 02/01/17 Clopidogrel Bisulfate [Plavix 75 mg Tablet] 75 mg PO DAILY 02/01/17 Levothyroxine Sodium [Synthroid 0.075 mg Tablet] 0.075 mg PO DAILY 02/01/17 Metoprolol Succinate [Toprol XL 100 mg Tablet] 100 mg PO DAILY 02/01/17 Nitroglycerin [Nitrostat] 0.4 mg SL Q5MP PRN 02/01/17 Valsartan [Diovan 160 mg Tablet] 160 mg PO DAILY 02/01/17 Ampicillin Trihydrate [Princepen 500 mg Capsule] 500 mg PO Q6 #15 capsule Clopidogrel Bisulfate [Plavix 75 mg Tablet] 75 mg PO DAILY tablet 07/15/17 Hydralazine HCl 75 mg PO TID #90 tablet 07/15/17 Insulin Lispro [Humalog Insulin (Lispro) 100 unit/mL] 0 - 12 unit SUBCUT ACHSP PRN unit 07/15/17 Isosorbide Mononitrate [Imdur 30 mg Tablet.er] 60 mg PO QAM tab.er.24h Levothyroxine Sodium [Synthroid 0.075 mg Tablet] 0.075 mg PO Q6AM tablet NPH, Human Insulin Isophane [Humulin N (NPH) Insulin 100 unit/mL] 40 unit SUBCUT ACSUPPER unit 07/15/17 NPH, Human Insulin Isophane [Humulin N (NPH) Insulin 100 unit/mL] 60 unit SUBCUT ACBRKFST unit 07/15/17 Nystatin [Mycostatin Topical Powder 15 gm] 1 applic TP TIDP PRN bottle History of Present Illness Patient complains of: Left-sided facial numbness and confusion History of Present Illness: KEVIN INFANTE is a 71 year old female sent with complaint of left-sided facial numbness and confusion. Hospital Course Hospital Course: Patient is a 71-year-old female that presented to our facility with left-sided facial numbness and confusion. Patient was also noted to have dysarthria at time of admission. Daughter reported that patient had symptoms for at least 2 days prior to presenting to the emergency department. Patient had imaging of the brain that demonstrated acute subacute infarct involving the right side of the temporal lobe and occipital lobe. Patient was noted to be on aspirin and Plavix and after further investigation it was found the patient has a fall history that has caused patient not to be a candidate for full anticoagulation therapy. Patient and family both reaffirmed that patient does follow at least 3 -4 times a month and are in agreement with patient maintaining current treatment plan of aspirin and Plavix. Patient's daughter as well as patient are hoping that she will be able to return home for independent living. She was noted to be hypotensive here therefore medications were adjusted and blood pressure has been under better control patient was noted to have electrolyte abnormalities which have been corrected. Patient has worked with our physical therapy however is requiring intense physical therapy treatment for stroke rehabilitation.. Physical Exam Vital Signs: Temp Pulse Resp BP Pulse Ox 98.0 F 57 L 22 H 174/67 H 100 07/15/17 08:03 07/15/17 08:03 07/15/17 08:03 07/15/17 08:03 07/15/17 08:03 Intake & Output 07/14/17 07/15/17 07/16/17 06:59 06:59 06:59 Intake Total 1359 742 Output Total 2150 1200 Balance -791 -458 Weight 100.4 kg 97.9 kg General appearance: PRESENT: no acute distress, well-developed, well-nourished Head exam: PRESENT: atraumatic, normocephalic Eye exam: PRESENT: conjunctiva pink, EOMI. ABSENT: scleral icterus Ear exam: PRESENT: normal external ear exam Mouth exam: PRESENT: moist, tongue midline Neck exam: ABSENT: carotid bruit, JVD, lymphadenopathy, thyromegaly Respiratory exam: PRESENT: clear to auscultation chadd. ABSENT: rales, rhonchi, wheezes Cardiovascular exam: PRESENT: RRR. ABSENT: diastolic murmur, rubs, systolic murmur Pulses: PRESENT: normal dorsalis pedis pul Vascular exam: PRESENT: normal capillary refill GI/Abdominal exam: PRESENT: normal bowel sounds, soft. ABSENT: distended, guarding, mass, organolmegaly, rebound, tenderness Rectal exam: PRESENT: deferred Extremities exam: PRESENT: full ROM. ABSENT: calf tenderness, clubbing, pedal edema Neurological exam: PRESENT: alert, awake, oriented to person, oriented to place , oriented to time, oriented to situation Psychiatric exam: PRESENT: appropriate affect, normal mood. ABSENT: homicidal ideation, suicidal ideation Skin exam: PRESENT: dry, intact, warm. ABSENT: cyanosis, rash Results Laboratory Results: 07/14/17 06:16 07/14/17 06:16 Impressions: Head MRI 07/08/17 00:00 IMPRESSION: Acute stroke involving the vascular territory of the right posterior cerebral artery. Microvascular ischemic change and atrophy. 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 Carotid Doppler Study 07/09/17 00:00 IMPRESSION: Mildly limited study. No evidence of hemodynamically significant internal carotid stenosis, however. Head CT 07/11/17 00:00 IMPRESSION: 1. Known large right infarct has slightly further evolved. There may be slightly more mass effect on the posterior aspect of the right lateral ventricle. No developing hemorrhage, however. EVIDENCE OF ACUTE STROKE: NO. Head CTA 07/12/17 00:00 IMPRESSION: LIMITED STUDY. THE RIGHT POSTERIOR CEREBRAL ARTERY IS NOT CLEARLY VISUALIZED AND CANNOT EXCLUDE PROXIMAL OCCLUSION OR STENOSIS. MRA OF THE BRAIN MAY PROVIDE BETTER VISUALIZATION IF CLINICALLY WARRANTED. Plan Time Spent: Greater than 30 Minutes - 37 minutes
[2017-07-15] MEDS: ASPIRIN 81 MG TABLET, ENT COATED PO SCH (09:40)
[2017-07-15] MEDS: ASCORBIC ACID 500 MG TABLET PO SCH (09:40)
[2017-07-15] MEDS: CLOPIDOGREL BISULFATE 75 MG TABLET PO SCH (09:40)
[2017-07-15] MEDS: AMLODIPINE BESYLATE 10 MG TABLET PO SCH (09:40)
[2017-07-15] MEDS: METOPROLOL SUCCINATE 50 MG TAB.SR.24H PO SCH (09:40)
[2017-07-15] MEDS: VALSARTAN 160 MG TABLET PO SCH (09:40)
[2017-07-15 12:03] VITALS: BP 170/80
[2017-07-15] MEDS: ACETAMINOPHEN 325 MG TABLET PO PRN (14:08)
== END 2017-07-15 15:30 | DRG 64 ==
LOC: ER 13:39 → EH 15:43 → 3W 18:48
PROVIDERS: ADMIT Hospitalist; ATTEND Hospitalist
DX: I63.331 Cerebral infarction due to thrombosis of right posterior cerebral artery (principal); G93.41 Metabolic encephalopathy; E87.1 Hypo-osmolality and hyponatremia; I50.42 Chronic combined systolic (congestive) and diastolic (congestive) heart failure; Z68.41 Body mass index [BMI] 40.0-44.9, adult; I48.2 Chronic atrial fibrillation; E87.6 Hypokalemia; I11.0 Hypertensive heart disease with heart failure; Z66 Do not resuscitate; I25.10 Atherosclerotic heart disease of native coronary artery without angina pectoris; E11.649 Type 2 diabetes mellitus with hypoglycemia without coma; E03.9 Hypothyroidism, unspecified; G47.33 Obstructive sleep apnea (adult) (pediatric); E66.9 Obesity, unspecified; F32.9 Major depressive disorder, single episode, unspecified; Z79.82 Long term (current) use of aspirin; Z79.4 Long term (current) use of insulin; Z79.02 Long term (current) use of antithrombotics/antiplatelets; Z88.2 Allergy status to sulfonamides; Z95.1 Presence of aortocoronary bypass graft; Z90.49 Acquired absence of other specified parts of digestive tract; Z90.710 Acquired absence of both cervix and uterus; I25.2 Old myocardial infarction
CPT/HCPCS: 36415; 70450; 70496; 70551; 71010; 80048; 80053; 81001; 82550; 82553; 82962; 83735; 84484; 85025; 85610; 85730; 87040; 87086; 87088; 87186; 93005; 93010; 93306; 93880; 99291; G8978-GP; G8979-GP; G8987-GO; G8988-GO; G8996-GN; G8997-GN; G8998-GN; J0696; J1650; J1815; J1885; J2060; J2765; J3480; J3490; J7040